=== PATIENT | male | born 1960 | race Caucasian/White ===

== ENCOUNTER 2016-05-08 04:17 | Observation (INO) | payer BC ==
[2016-05-08] MEDS ORDERED: NS 0.9% 1000 ML* 1,000 ML IV ONE (04:38)
[2016-05-08 04:54] LABS: Hematocrit 35 % (42-52); Hemoglobin 12.1 g/dl (14.0-18.0); Mean Corpuscular HGB Conc 34 g/dl (31-36); Mean Corpuscular Hemoglobin 31 pg (27-31); Mean Corpuscular Volume 90 fL (80-94); Mean Platelet Volume 8 um3 (7.4-10.4); Red Blood Count 3.94 10^6/ul (4.0-5.4); Red Cell Distribution Width 14 % (10.5-15)
[2016-05-08] MEDS ORDERED: Morphine INJ* 4 MG/ML 1 ML CARPUJECT IV ONE (04:54)
[2016-05-08 05:07] LABS: Albumin 3.7 g/dL (3.2-5.2); BUN/Creatinine Ratio 17.1 (8-20); Calcium 8.7 mg/dL (8.6-10.3); EGFR Non-African American 97.2 (>60); Globulin 2.7 g/dL (2-4); Potassium 3.7 mmol/L (3.5-5.0); Total Bilirubin 0.3 mg/dL (0.2-1.0); Total Protein 6.4 g/dL (6.4-8.9)
[2016-05-08] MEDS ORDERED: Albuterol 2.5 MG/3 ML NEB.SOL* (0.083%) INH PRN (05:40)
[2016-05-08] MEDS ORDERED: CMC:Melatonin (NF) 3 MG TAB PO PRN (05:46)
[2016-05-08] MEDS ORDERED: Ondansetron INJ* 2 MG/ML VIAL IV PRN (05:49)
[2016-05-08] MEDS ORDERED: Metoprolol Tartrate TAB* 25 MG PO ONE (05:49)
--- NOTE | 2016-05-08 05:56 | ED ---
nicola Garcia Timothy, scribed for Dyllan Hernandez MD on 05/08/16 at 0429 . HPI Chest Pain - HPI Summary HPI Summary: Pal Bejarano is a 55 yo male presenting to [facility] with 6/10 CP and pressure with SOB since 299. He also experienced palpitations. He states his CP is midsternal, and has moved left. He states the pain increases when he breathes out. He states the pain does not radiate. 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 He states he was not shoveling at all today or last night. He denies any Hx of similar Sx. he has been medicated with ASA and NTG with no relief. He denies any leg edema. His MHx includes CA, CAD, HLD, anticoagulant therapy, HTN, stent, chronic CP resolved with rest, tourett's syndrome, COPD, bronchitis (none since 2009), pancreatitis, GERD, ulcerative colitis, hypoglycemia, tobacco use. - History of Current Complaint Time Seen by Provider: 05/08/16 04:26 Hx Obtained From: Patient Onset/Duration: Started Hours Ago, Still Present Time of Onset: 03:00 Timing: Constant Initial Severity: Moderate Current Severity: Moderate Pain Intensity: 6 Pain Scale Used: 0-10 Numeric Chest Pain Location: Mid Sternal Chest Pain Radiates: No Character: Pressure/Squeezing Aggravating Factor(s): Deep Breaths - exhale Alleviating Factor(s): Nothing Associated Signs and Symptoms: Positive: Chest Pain. Negative: Calf Pain/ Swelling - Allergy/Home Medications Allergies/Adverse Reactions: Allergies Allergy/AdvReac Type Severity Reaction Status Date / Time Latex Allergy Mild Rash Verified 12/11/13 09:41 Aspirin AdvReac Mild GI Upset Verified 12/11/13 09:41 Ibuprofen AdvReac Mild GI Upset Verified 12/11/13 09:41 apple juice Allergy Severe Anaphylatic Uncoded 12/11/13 09:41 Shock orange juice Allergy Severe Anaphylatic Uncoded 12/11/13 09:41 Shock FRUITS Allergy See Comment Uncoded 07/04/14 09:06 Narcotic AdvReac Intermediate See Comment Uncoded 05/08/16 05:48 PMH/Surg Hx/FS Hx/Imm Hx Endocrine/Hematology History: Reports: Hx Anticoagulant Therapy - asporin, Other Endocrine/Hematological Disorders - Hypoglycemia Denies: Hx Blood Disorders, Hx Bone Marrow Disease, Hx Diabetes, Hx Systemic Lupus Erythematosus, Hx Sickle Cell Disease, Hx Thyroid Disease, Hx Anemia, Hx Unexplained Bleeding Cardiovascular History: Reports: Hx Angina, Hx Coronary Artery Disease, Hx Hypercholesterolemia, Hx Hypertension, Hx Myocardial Infarction Denies: Hx Aneurysm, Hx Angioplasty, Hx Auto Implanted Cardiovert Defib, Hx Cardiac Arrest, Hx Cardiomegaly, Hx Congenital Heart Disease, Hx Congestive Heart Failure, Hx Deep Vein Thrombosis, Hx Hypotension, Hx Pacemaker/ICD, Hx Peripheral Vascular Disease, Hx Rheumatic Fever, Hx Syncope, Hx Valvular Heart Disease Comment Only: Other Cardiovascular Problems/Disorders - FOLLOWED BY DR MANDEL Respiratory History: Reports: Hx Chronic Bronchitis, Hx Chronic Obstructive Pulmonary Disease (COPD), Other Respiratory Problems/Disorders - current smoker Denies: Hx Asthma, Hx Cystic Fibrosis, Hx Lung Cancer, Hx Pleural Effusion, Hx Pneumonia, Hx Pulmonary Edema, Hx Pulmonary Embolism, Hx Seasonal Allergies, Hx Sleep Apnea GI History: Reports: Hx Gastroesophageal Reflux Disease - ON DAILY OMEPRAZOLE, Hx Gastrointestinal Bleed, Other GI Disorders - Hx OF ULCERATIVE COLITIS Denies: Hx Cirrhosis, Hx Crohn's Disease, Hx Diverticulosis, Hx Gall Bladder Disease, Hx Hiatal Hernia, Hx Irritable Bowel, Hx Jaundice, Hx Obstructive Bowel , Hx Ileostomy, Hx Pyloric Stenosis, Hx Ulcer History: Denies: Hx Renal Disease Musculoskeletal History: Reports: Hx Arthritis - RIGHT HAND, Hx Orthopedic Injury - R hand, L foot, Hx Tendonitis - BOTH ARMS, Other Musculoskeletal History - L foot drop toe surgery; carpal tunnel relase R hand Sensory History: Reports: Hx Contacts or Glasses - GLASSES, Hx Vision Problem Opthamlomology History: Reports: Hx Contacts or Glasses - GLASSES, Hx Vision Problem Neurological History: Reports: Other Neuro Impairments/Disorders - TOURETTE'S SYNDROME, ON DAILY MEDS Denies: Hx Seizures Psychiatric History: Reports: Other Psychiatric Issues/Disorders - Tourette's Denies: Hx Substance Abuse - Surgical History Surgery Procedure, Year, and Place: 1998 LEFT FOOT [facility]. 2012 CARDIAC CATH [facility] Hx Anesthesia Reactions: No - Immunization History Date of Tetanus Vaccine: Unknown Date of Influenza Vaccine: None, doesn't get the flu vaccine Infectious Disease History: Denies: Hx Clostridium Difficile, Hx Hepatitis, Hx Human Immunodeficiency Virus (HIV), Hx Shingles, Hx Tuberculosis - Family History Known Family History: Positive: Cardiac Disease - Social History Alcohol Use: None Alcohol Amount: Hx OF ABUSE; NONE SINCE 1981 Substance Use Type: Reports: None Substance Use Comment - Amount & Last Used: DID ABUSE DRUGS;NONE SINCE 1981 Hx Tobacco Use: Yes Smoking Status (MU): Light Every Day Tobacco Smoker Type: Cigarettes Amount Used/How Often: CURRENT 1/2PPD; PAST 3PPD; HAS SMOKED 38 YRS Length of Time of Smoking/Using Tobacco: 38 YEARS Have You Smoked in the Last Year: Yes Review of Systems Constitutional: Negative Eyes: Negative ENT: Negative Positive: Palpitations, Chest Pain Positive: Shortness Of Breath Gastrointestinal: Negative Genitourinary: Negative Musculoskeletal: Negative Skin: Negative Neurological: Negative Psychological: Normal All Other Systems Reviewed And Are Negative: Yes Physical Exam - Summary Physical Exam Summary: The patient is well-nourished in mild pain distress. The skin is warm and dry and skin color reflects adequate perfusion. HEENT: The head is normocephalic and atraumatic. The pupils are equal and reactive. The conjunctivae are clear and without drainage. Nares are patent and without drainage. Mouth reveals moist mucous membranes and the throat is without erythema and exudate. The external ears are intact. The ear canals are patent and without drainage. The tympanic membranes are intact. Neck is supple with full range of motion and non-tender. There are no carotid bruits. There is no neck vein distension. Respiratory: Chest is non-tender. Lungs are clear to auscultation and breath sounds are symmetrical and equal. Cardiovascular: Hear is regular rate and rhythm. There is no murmur or rub auscultated. There is no peripheral edema and pulses are symmetrical and equal. There is no reproducible CP. Abdomen: The abdomen is soft and non-tender. There are normal bowel sounds heard in all four quadrants and there is no organomegaly palpated. Musculoskeletal: There is no back pain noted. Extremities are non-tender with full range of motion. There is good capillary refill. There is no peripheral edema or calf tenderness elicited. Neurological: Patient is alert and oriented to person, place and time. The patient has symmetrical motor strength in all four extremities. Cranial nerves are grossly intact. Deep tendon reflexes are symmetrical and equal in all four extremities. Psychiatric: The patient has an appropriate affect and does not exhibit any anxiety or depression. Triage Information Reviewed: Yes Vital Signs On Initial Exam: Initial Vital Signs Temp 98.9 F 05/08/16 04:29 Pulse 73 05/08/16 04:29 Resp 19 05/08/16 04:29 BP 119/77 05/08/16 04:29 Pulse Ox 100 05/08/16 04:29 Vital Signs Reviewed: Yes Diagnostics - Vital Signs Vital Signs Temp Pulse Resp BP Pulse Ox 05/08/16 05:30 63 119/80 100 05/08/16 05:21 65 136/78 100 05/08/16 05:14 120/83 05/08/16 05:00 61 20 109/78 100 05/08/16 04:59 19 05/08/16 04:58 65 20 100 05/08/16 04:29 98.9 F 73 19 119/77 100 - Laboratory Lab Results: Lab Results 05/08/16 05/08/16 05/08/16 Range/Units 04:45 04:45 04:45 WBC 7.0 (3.5-10.8) 10^3/ul RBC 3.94 L (4.0-5.4) 10^6/ul Hgb 12.1 L (14.0-18.0) g/dl Hct 35 L (42-52) % MCV 90 (80-94) fL MCH 31 (27-31) pg MCHC 34 (31-36) g/dl RDW 14 (10.5-15) % Plt Count 283 (150-450) 10^3/ul MPV 8 (7.4-10.4) um3 Neut % (Auto) 65.7 (38-83) % Lymph % (Auto) 22.6 L (25-47) % Tucker % (Auto) 7.4 (1-9) % Eos % (Auto) 3.4 (0-6) % Baso % (Auto) 0.9 (0-2) % Absolute Neuts (auto) 4.6 (1.5-7.7) 10^3/ul Absolute Lymphs (auto) 1.6 (1.0-4.8) 10^3/ul Absolute Monos (auto) 0.5 (0-0.8) 10^3/ul Absolute Eos (auto) 0.2 (0-0.6) 10^3/ul Absolute Basos (auto) 0.1 (0-0.2) 10^3/ul Absolute Nucleated RBC 0 10^3/ul Nucleated RBC % 0.1 ESR Pending Sodium 132 L (133-145) mmol/L Potassium 3.7 (3.5-5.0) mmol/L Chloride 104 (101-111) mmol/L Carbon Dioxide 21 L (22-32) mmol/L Anion Gap 7 (2-11) mmol/L BUN 14 (6-24) mg/dL Creatinine 0.82 (0.67-1.17) mg/dL Est GFR ( Amer) 125.0 (>60) Est GFR (Non-Af Amer) 97.2 (>60) BUN/Creatinine Ratio 17.1 (8-20) Glucose 175 H (70-100) mg/dL Lactic Acid 1.0 (0.5-2.0) mmol/L Calcium 8.7 (8.6-10.3) mg/dL Total Bilirubin 0.30 (0.2-1.0) mg/dL AST 16 (13-39) U/L ALT 9 (7-52) U/L Alkaline Phosphatase 71 (34-104) U/L Troponin I 0.00 (<0.04) ng/mL C-Reactive Protein Pending B-Natriuretic Peptide ( - 100) pg/mL Total Protein 6.4 (6.4-8.9) g/dL Albumin 3.7 (3.2-5.2) g/dL Globulin 2.7 (2-4) g/dL Albumin/Globulin Ratio 1.4 (1-3) 05/08/16 Range/Units 04:45 WBC (3.5-10.8) 10^3/ul RBC (4.0-5.4) 10^6/ul Hgb (14.0-18.0) g/dl Hct (42-52) % MCV (80-94) fL MCH (27-31) pg MCHC (31-36) g/dl RDW (10.5-15) % Plt Count (150-450) 10^3/ul MPV (7.4-10.4) um3 Neut % (Auto) (38-83) % Lymph % (Auto) (25-47) % Tucker % (Auto) (1-9) % Eos % (Auto) (0-6) % Baso % (Auto) (0-2) % Absolute Neuts (auto) (1.5-7.7) 10^3/ul Absolute Lymphs (auto) (1.0-4.8) 10^3/ul Absolute Monos (auto) (0-0.8) 10^3/ul Absolute Eos (auto) (0-0.6) 10^3/ul Absolute Basos (auto) (0-0.2) 10^3/ul Absolute Nucleated RBC 10^3/ul Nucleated RBC % ESR Sodium (133-145) mmol/L Potassium (3.5-5.0) mmol/L Chloride (101-111) mmol/L Carbon Dioxide (22-32) mmol/L Anion Gap (2-11) mmol/L BUN (6-24) mg/dL Creatinine (0.67-1.17) mg/dL Est GFR ( Amer) (>60) Est GFR (Non-Af Amer) (>60) BUN/Creatinine Ratio (8-20) Glucose (70-100) mg/dL Lactic Acid (0.5-2.0) mmol/L Calcium (8.6-10.3) mg/dL Total Bilirubin (0.2-1.0) mg/dL AST (13-39) U/L ALT (7-52) U/L Alkaline Phosphatase (34-104) U/L Troponin I (<0.04) ng/mL C-Reactive Protein B-Natriuretic Peptide 32 ( - 100) pg/mL Total Protein (6.4-8.9) g/dL Albumin (3.2-5.2) g/dL Globulin (2-4) g/dL Albumin/Globulin Ratio (1-3) Result Diagrams: 05/08/16 04:45 05/08/16 04:45 Lab Statement: Any lab studies that have been ordered have been reviewed, and results considered in the medical decision making process. - Radiology CXR Xray Interpretation: No Acute Changes - No active disease Radiology Interpretation Completed By: ED Physician - EKG 0429 Cardiac Rate: NL - 66 BPM EKG Interpretation: NSR @ [address] changes in I, AVL, AVF, II, III , V5, V6 EKG Comparison: No Significant Change - from 06/03/15 Re-Evaluation - Re-Evaluation First Eval Re-Evaluation Time: 04:51 Change: Unchanged Comment: Pt is still in 6/10 CP Second Eval Re-Evaluation Time: 05:31 Change: Unchanged Comment: Pt states his CP has improved. Reviewed labs with Pt, Pt is agreeable to current course of Tx. Chest Pain Course/Dx - Course Assessment/Plan: Pal Bejarano is a 55 yomale presenting to [facility] with CP and SOB since 0300 today. After clinical examination and review of his EKG, imaging studies, and lab work, as well as discussion with Dr. Prabhakar, he will be admitted to [facility] for further evaluation and treatment. - Chest Pain Differential Diagnosis/HQI/PQRI: Acute CA, ACS, GI Disease - Diagnoses Provider Diagnoses: Chest pain - Provider Notifications Discussed Care Of Patient With: 0535 - Dr. Prabhakar (hospitalist) - discussed Pt condition, agrees to admit Pt. Instructed by Provider To: Admit As Inpatient Discharge - Discharge Plan Condition: Stable Disposition: ADMITTED TO [facility] Referrals: Janet Sy, LOAD CHECKER [Primary Care Provider] - The documentation as recorded by the nicola dobson Timothy accurately reflects the service I personally performed and the decisions made by me, Dyllan Hernandez MD.
[2016-05-08 06:00] LABS: C Reactive Protein 6.38 mg/L (< 5.00)
[2016-05-08] MEDS ORDERED: Pantoprazole IV* 40 MG IV SCH (06:00)
[2016-05-08 06:36] LABS: Erythrocyte Sed Rate 31 mm/Hr (0-20)
--- NOTE | 2016-05-08 07:58 | RAD ---
HISTORY: Chest pain, cough, CHF, pneumonia COMPARISONS: January 13, 2016 VIEWS:1: Single frontal portable view of the chest at 4:46 AM FINDINGS: LINES AND TUBES: None. CARDIOMEDIASTINAL SILHOUETTE: The cardiomediastinal silhouette is normal for portable technique. PLEURA: The costophrenic angles are sharp. No pleural abnormalities are noted. LUNG PARENCHYMA: There is patchy linear opacification of the right lower lobe ABDOMEN: The upper abdomen is clear. There is no subphrenic gas. BONES AND SOFT TISSUES: No bone or soft tissue abnormalities are noted. IMPRESSION: PATCHY RIGHT LOWER LOBE ATELECTASIS VERSUS CONSOLIDATION
[2016-05-08] MEDS ORDERED: Acetaminop/Codeine 30 MG TAB* 1 TAB (300 MG/30 MG) PO PRN (08:14)
[2016-05-08] MEDS ORDERED: Baclofen TAB* 10 MG PO SCH (09:00)
[2016-05-08] MEDS ORDERED: Omeprazole CAP* 20 MG PO SCH (09:00)
[2016-05-08] MEDS ORDERED: Metoprolol Tartrate TAB* 25 MG PO SCH (09:00)
[2016-05-08] MEDS ORDERED: PARoxetine HCL TAB* 20 MG PO SCH (09:00)
[2016-05-08] MEDS ORDERED: Docusate CAP* 100 MG PO SCH (09:00)
[2016-05-08] MEDS ORDERED: Aspirin Low Dose CHEW TAB* 81 MG PO SCH (09:00)
[2016-05-08] MEDS ORDERED: Atorvastatin* 40 MG TAB PO SCH (09:00)
[2016-05-08] MEDS ORDERED: Nicotine Inhaler* 10 MG AMP INH PRN (09:24)
[2016-05-08] MEDS ORDERED: cloNIDine TAB* 0.1 MG PO ONE (09:25)
[2016-05-08] MEDS ORDERED: Mouth Piece, Nicotine* 1 EACH CARTRIDGE INH ONE (10:00)
--- NOTE | 2016-05-08 12:54 | HP ---
HISTORY AND PHYSICAL: DATE OF ADMISSION: 05/08/16 PRIMARY CARE PROVIDER: Janet Santos NP CHIEF COMPLAINT: Chest pain. HISTORY OF PRESENT ILLNESS: The patient is a 55-year-old male with history of nonobstructive coronary artery disease, smoking and Tourette syndrome who presents complaining of chest pain. 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 He bent down and he experienced thoracic chest pain that was localized in the center radiating to the right. It got better when he "straightened out." It was not associated with shortness of breath, nausea, or dyspnea. It lasted approximately half an hour. Currently, the patient is being evaluated in the patient's room and he does not have chest pain anymore. The patient states that he smokes approximately a pack to half a pack of cigarettes a day. He stated that he has chronic "stomach problems" and he drinks a lot of coffee during the daytime. He describes that he has epigastric pain sometimes after meals. The patient's initial troponin was negative and EKG showed most likely J-point elevation. The patient is going to be placed on observation for a stress test. PAST MEDICAL HISTORY: 1. History of nonobstructive coronary artery disease with cardiac catheterization in 2012 showing LAD stenosis of 60% to 65% and RCA stenosis of 55%. 2. Tourette syndrome. 3. History of hyperlipidemia. 4. History of episodes of hypoglycemia in the past. 5. History of smoking. CURRENT MEDICATIONS: Include: 1. Baclofen 10 mg twice a day. 2. Clonidine 0.1 mg in the morning and 0.2 mg q.h.s. 3. Omeprazole 40 mg daily. 4. Paroxetine 20 mg daily. 5. Aspirin 81 mg daily. 6. Atorvastatin 40 mg daily. 7. Metoprolol tartrate 12.5 mg b.i.d. 8. Acetaminophen with Codeine 1 tablet every 6 hours p.r.n. ALLERGIES: Include LATEX, PHENOBARBITAL, ASPIRIN, although the patient takes baby aspirin, IBUPROFEN, APPLE JUICE, ORANGE JUICE and NARCOTICS. Please note that the NARCOTICS allergies "the patient prefers not to take." ASPIRIN and IBUPROFEN caused GI upset. ORANGE JUICE and APPLE JUICE caused anaphylactic shock. FAMILY HISTORY: Positive for father with "5 heart attacks." Mother with history of breast cancer. SOCIAL HISTORY: The patient has history of smoking at least 40 to 60 pack years. Currently smoking half a pack to 1 pack a day. Denies any alcohol use. He said that he used to be an opioid drug user, but he quit in 1981. 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 He is and his Karrie is his healthcare proxy. REVIEW OF SYSTEMS: Please see history of present illness. In addition to above mentioned, the patient stated that he has osteoarthritis on his knees and his knees "would buckle up" if he tried to walk on a treadmill. Once again, the patient complains of chronic "stomach problems" intermittent epigastric pain especially when he drinks caffeine. All the remaining 14 systems were reviewed with the patient and were otherwise negative. PHYSICAL EXAMINATION GENERAL: The patient is a very pleasant 55-year-old male, who is in no acute distress. Alert, awake, and oriented x3. VITAL SIGNS: Blood pressure of 119/78, heart rate of 71 and regular, respiratory rate 16, oxygen saturation 98% on room air, temperature of 98.9. HEENT: Head: Atraumatic, normocephalic. Eyes: Pupils equal and reactive to light and accommodation. Oropharynx clear. Mucosa moist. NECK: Supple. No JVD. No bruits bilaterally. RESPIRATORY: Clear to auscultation bilaterally. CARDIOVASCULAR: Regular rate and rhythm. No murmurs. ABDOMEN: Soft, minimally tender in the epigastric area with no rebound, no guarding. Bowel sounds present in all 4 quadrants. EXTREMITIES: There is no edema. +2 pulses bilaterally. No clubbing or cyanosis. SKIN: Upon evaluation of the skin, no ecchymotic areas or rashes noted. NEUROLOGIC: Speech clear. Cranial nerves II through XII are grossly intact. Motor strength is 5/5 bilaterally. LABORATORY DATA: Sodium of 132, potassium 3.7, chloride 104, carbon dioxide 21 , BUN 14, creatinine 0.82. Liver functions were unremarkable. Troponin of 0.0. Brain natriuretic peptide was 32. Random glucose level of 175. White blood cell count 7.0, hemoglobin 12.1, hematocrit 35, and platelets 183. Portable chest x-ray showed "patchy right lower lobe atelectasis versus consolidation." EKG showed normal sinus rhythm with heart rate of 52 beats per minute with downsloping ST elevation of V2 through V6, most likely due to J-point elevation. This is consistent with prior EKG from 2014. ASSESSMENT AND PLAN: In regards to patient's chest pain, it appears to be musculoskeletal and started when the patient bent down. Nevertheless, the patient has significant risk factors and he is going to be placed on observation with pharmacologic stress test. In regards to the patient's hyperlipidemia, the patient's statin is going to be continued. For hypertension, his beta-carley is going to be continued. In regards to patient's epigastric mild tenderness and his "stomach concerns" it should be evaluated further as outpatient. The patient is going to be continued on Prilosec. He also was advised to stop caffeinated beverages and smoking that can cause gastritis and gastric ulcers. The patient stated that he will quit smoking "when he is 6 feet under." In regards to patient's smoking cessation, the patient was consulted for approximately 5 minutes. Once again, he is adamant that he is not going to quit smoking. He is aware of the risks of smoking and that it can worsen his coronary artery disease and cause emphysema and cancer. In regards to right lower lobe infiltrate versus atelectasis, the patient has no symptomatology that would suggest an infection. It is most likely an atelectasis. Nevertheless, with the patient's long-term history of smoking and unwillingness to quit, he may be a good candidate for lung cancer screening with chest CT. I will leave it up to his primary care provider to discuss with the patient and perform as outpatient later on. For DVT prophylaxis, the patient is low risk and ambulation is going to be encouraged. Code status is full. TIME SPENT: Approximately 55 minutes was spent on admission of this patient, more than half the time was spent [id number] with the patient doing the interview and physical exam. CC: Janet Santos NP * [id number]/[facility] #: [id number] SOFY
[2016-05-08] MEDS ORDERED: Aminophylline IV* 25 MG/ML 10 ML VIAL ONE (13:31)
[2016-05-08] MEDS ORDERED: Regadenoson* 0.4 MG/5 ML SYRINGE ONE (13:31)
--- NOTE | 2016-05-08 14:53 | RAD ---
Edited for charges. Indication: Chest pain. Myocardial perfusion scan was performed utilizing 1 day protocol. 10.4 mCi of technetium 99m tetrofosmin was injected for the rest portion of the study. Pharmacological stress was applied and 25.78 mCi of technetium 99 and tetrofosmin was injected for the stress portion of the study. There is homogeneous distribution of the radiotracer throughout the left ventricle. There is no evidence of any fixed or reversible perfusion defect identified. The left ventricle is normal in size. The ejection fraction is 61%. Evaluation of wall motion demonstrates no focal wall motion abnormality. IMPRESSION: No evidence of fixed or reversible perfusion defect is identified. ASSESSMENT: Low risk Based on imaging criteria from ACC/AHA 2002 Guideline Update for the Management of Patients With Chronic Stable Angina Table 23. Noninvasive Risk Stratification. MTDD
[2016-05-08 15:31] VITALS: BP 128/80
[2016-05-08] MEDS ORDERED: cloNIDine TAB* 0.1 MG PO SCH (21:00)
--- NOTE | 2016-05-09 07:08 | DS ---
DISCHARGE SUMMARY: DATE OF ADMISSION: 05/08/16 DATE OF DISCHARGE: 05/08/16 DISCHARGE DIAGNOSES: Chest pain, most likely musculoskeletal, with low probability of cardiac stress as documented on 05/08/16. SECONDARY DIAGNOSES: 1. History of nonobstructive coronary artery disease. 2. Tourette's syndrome. 3. History of dyslipidemia. 4. History of episodes of hypoglycemia in the past. 5. Current smoker. DISCHARGE MEDICATIONS: Medications at discharge are unchanged from admission and include: 1. Baclofen 10 mg twice a day. 2. Clonidine 0.1 mg in the morning and 0.2 mg q.h.s. 3. Omeprazole 40 mg daily. 4. Paroxetine 20 mg daily. 5. Aspirin 81 mg daily. 6. Atorvastatin 40 mg daily. 7. Metoprolol tartrate 12.5 mg b.i.d. 8. Acetaminophen with codeine on a p.r.n. basis. HOSPITALIZATION COURSE: Mr. Ventura Bejarano is a 55-year-old male with history of nonobstructive coronary artery disease, who presented complaining of chest pain that developed when he bent down. His initial troponins were negative and his EKG unremarkable. He underwent a cardiac stress test, which was a pharmacologic cardiac stress test on 05/08/16, which was read as low risk. His ejection fraction was noted to be 61% and there was no evidence of any fixed or reversible perfusion defects identified. The patient is going to be discharged home with recommendation to follow up with his primary care physician in approximately 7 days. PHYSICAL EXAM AT TIME OF DISCHARGE: Unchanged from admission. CC: Janet Santos NP* [id number]/[facility] #: [id number] [facility]ITALGabbie
[2016-05-09] MEDS ORDERED: Aspirin TAB* 325 MG PO SCH (09:00)
== END 2016-05-08 17:00 | disposition home or self-care (01) ==
LOC: ED 04:17 → MEDTELE 05:36
PROVIDERS: ADMIT Hospitalist; ATTEND Internal Medicine
DX: R07.9 Chest pain, unspecified (principal); I25.10 Atherosclerotic heart disease of native coronary artery without angina pectoris; F95.2 Tourette's disorder; E78.5 Hyperlipidemia, unspecified; F17.210 Nicotine dependence, cigarettes, uncomplicated; Z79.899 Other long term (current) drug therapy; Z79.82 Long term (current) use of aspirin; Z88.6 Allergy status to analgesic agent; Z88.5 Allergy status to narcotic agent
CPT/HCPCS: 36415; 71010; 78452; 80053; 83036; 83605; 83880; 84484; 85025; 85652; 86140; 93005; 93017; 96374; 99283; A9270-GY; A9502; G0378; J0280; J2270; J2785

== ENCOUNTER 2016-12-17 04:13 | Observation (INO) | payer BC ==
[2016-12-17] MEDS ORDERED: Nitroglycerin 2% OINT* 1 GM PAK TOPICAL ONE (04:23)
[2016-12-17 04:48] LABS: Hematocrit 39 % (42-52); Hemoglobin 13.2 g/dl (14.0-18.0); Mean Corpuscular HGB Conc 34 g/dl (31-36); Mean Corpuscular Hemoglobin 31 pg (27-31); Mean Corpuscular Volume 89 fL (80-94); Mean Platelet Volume 8 um3 (7.4-10.4); Red Blood Count 4.33 10^6/ul (4.0-5.4); Red Cell Distribution Width 14 % (10.5-15); White Blood Count 8.6 10^3/ul (3.5-10.8)
[2016-12-17 05:00] LABS: Albumin 3.9 g/dL (3.2-5.2); BUN/Creatinine Ratio 20.2 (8-20); Calcium 9.1 mg/dL (8.6-10.3); EGFR African American 100.2 (>60); EGFR Non-African American 77.9 (>60); Globulin 3.3 g/dL (2-4); Magnesium 2.2 mg/dL (1.9-2.7); Potassium 4.5 mmol/L (3.5-5.0); Total Bilirubin 0.3 mg/dL (0.2-1.0); Total Protein 7.2 g/dL (6.4-8.9)
--- NOTE | 2016-12-17 06:14 | ED ---
Diamond Garcia Thomas, scribed for Anil Brower on 12/17/16 at 0426 . HPI Chest Pain - HPI Summary HPI Summary: The pt is a 56 y/o M presenting to the ED c/o CP that began about an hour ago when he was moving furniture. The pain is constant. The pain is rated 3/10. The pain is aggravated by nothing and is alleviated by nothing. 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 Pt additionally c/o SOB. Pt denies N/V and dizziness. He is a current smoker. He last had a stress test about a year ago. He last had a cardiac catheterization years ago. - History of Current Complaint Chief Complaint: EDChestPainROMI Time Seen by Provider: 12/17/16 04:14 Hx Obtained From: Patient Onset/Duration: Started Minutes Ago - onset about an hour ago, Still Present Timing: Constant Current Severity: Mild Pain Intensity: 3 Pain Scale Used: 0-10 Numeric Chest Pain Radiates: No Aggravating Factor(s): Nothing Alleviating Factor(s): Nothing Associated Signs and Symptoms: Positive: Chest Pain, Shortness of Breath. Negative: Dizziness, Nausea, Vomiting - Additional Pertinent History Primary Care Physician: [id number] - Allergy/Home Medications Allergies/Adverse Reactions: Allergies Allergy/AdvReac Type Severity Reaction Status Date / Time Latex Allergy Mild Rash Verified 05/08/16 06:21 Aspirin AdvReac Mild GI Upset Verified 05/08/16 06:21 Ibuprofen AdvReac Mild GI Upset Verified 05/08/16 06:21 apple juice Allergy Severe Anaphylatic Uncoded 05/08/16 06:21 Shock orange juice Allergy Severe Anaphylatic Uncoded 05/08/16 06:21 Shock FRUITS Allergy See Comment Uncoded 05/08/16 06:21 Narcotic AdvReac Intermediate See Comment Uncoded 05/08/16 06:21 PMH/Surg Hx/FS Hx/Imm Hx Previously Healthy: No Endocrine/Hematology History: Reports: Hx Anticoagulant Therapy - asporin, Other Endocrine/Hematological Disorders - Hypoglycemia Denies: Hx Blood Disorders, Hx Bone Marrow Disease, Hx Diabetes, Hx Systemic Lupus Erythematosus, Hx Sickle Cell Disease, Hx Thyroid Disease, Hx Anemia, Hx Unexplained Bleeding Cardiovascular History: Reports: Hx Angina, Hx Coronary Artery Disease, Hx Hypercholesterolemia, Hx Hypertension, Hx Myocardial Infarction Denies: Hx Aneurysm, Hx Angioplasty, Hx Auto Implanted Cardiovert Defib, Hx Cardiac Arrest, Hx Cardiomegaly, Hx Congenital Heart Disease, Hx Congestive Heart Failure, Hx Deep Vein Thrombosis, Hx Hypotension, Hx Pacemaker/ICD, Hx Peripheral Vascular Disease, Hx Rheumatic Fever, Hx Syncope, Hx Valvular Heart Disease Comment Only: Other Cardiovascular Problems/Disorders - FOLLOWED BY DR MANDEL Respiratory History: Reports: Hx Chronic Bronchitis, Hx Chronic Obstructive Pulmonary Disease (COPD), Other Respiratory Problems/Disorders - current smoker Denies: Hx Asthma, Hx Cystic Fibrosis, Hx Lung Cancer, Hx Pleural Effusion, Hx Pneumonia, Hx Pulmonary Edema, Hx Pulmonary Embolism, Hx Seasonal Allergies, Hx Sleep Apnea GI History: Reports: Hx Gastroesophageal Reflux Disease - ON DAILY OMEPRAZOLE, Hx Gastrointestinal Bleed, Other GI Disorders - Hx OF ULCERATIVE COLITIS Denies: Hx Cirrhosis, Hx Crohn's Disease, Hx Diverticulosis, Hx Gall Bladder Disease, Hx Hiatal Hernia, Hx Irritable Bowel, Hx Jaundice, Hx Obstructive Bowel , Hx Ileostomy, Hx Pyloric Stenosis, Hx Ulcer History: Denies: Hx Renal Disease Musculoskeletal History: Reports: Hx Arthritis - RIGHT HAND, Hx Orthopedic Injury - R hand, L foot, Hx Tendonitis - BOTH ARMS, Other Musculoskeletal History - L foot drop toe surgery; carpal tunnel relase R hand Sensory History: Reports: Hx Contacts or Glasses - GLASSES, Hx Vision Problem Opthamlomology History: Reports: Hx Contacts or Glasses - GLASSES, Hx Vision Problem Neurological History: Reports: Other Neuro Impairments/Disorders - TOURETTE'S SYNDROME, ON DAILY MEDS Denies: Hx Seizures Psychiatric History: Reports: Other Psychiatric Issues/Disorders - Tourette's Denies: Hx Substance Abuse - Surgical History Surgery Procedure, Year, and Place: 1998 LEFT FOOT [facility]. 2012 CARDIAC CATH [facility] Hx Anesthesia Reactions: No - Immunization History Date of Tetanus Vaccine: Unknown Date of Influenza Vaccine: None, doesn't get the flu vaccine Infectious Disease History: No Infectious Disease History: Denies: Hx Clostridium Difficile, Hx Hepatitis, Hx Human Immunodeficiency Virus (HIV), Hx Shingles, Hx Tuberculosis, Traveled Outside the [place] in Last 30 Days - Family History Known Family History: Positive: Cardiac Disease - Social History Alcohol Use: None Alcohol Amount: Hx OF ABUSE; NONE SINCE 1981 Substance Use Type: Reports: None Substance Use Comment - Amount & Last Used: DID ABUSE DRUGS;NONE SINCE 1981 Hx Tobacco Use: Yes Smoking Status (MU): Light Every Day Tobacco Smoker Type: Cigarettes Amount Used/How Often: CURRENT 1/2PPD; PAST 3PPD; HAS SMOKED 38 YRS Length of Time of Smoking/Using Tobacco: 38 YEARS Have You Smoked in the Last Year: Yes Review of Systems Positive: Chest Pain Positive: Shortness Of Breath Negative: Vomiting, Nausea Neurological: Other - NEGATIVE: dizziness All Other Systems Reviewed And Are Negative: Yes Physical Exam - Summary Physical Exam Summary: Appearance: Well appearing, no pain distress Skin: warm, dry, reflects adequate perfusion Head/face: normal Eyes: EOMI, COLLEEN ENT: normal Neck: supple, nontender Respiratory: CTA, breath sounds present Cardiovascular: RRR, pulses symmetrical Abdomen: nontender, soft Bowel: present Musculoskeletal: normal, strength/ROM intact Neuro: normal, sensory motor intact, A&Ox3 Triage Information Reviewed: Yes Vital Signs On Initial Exam: Initial Vitals Temp Pulse Resp BP Pulse Ox 98.6 F 72 16 133/93 100 12/17/16 04:17 12/17/16 04:17 12/17/16 04:17 12/17/16 04:17 12/17/16 04:17 Vital Signs Reviewed: Yes Diagnostics - Vital Signs Vital Signs Temp Pulse Resp BP Pulse Ox 12/17/16 04:17 98.6 F 72 16 133/93 100 - Laboratory Lab Results: Lab Results 12/17/16 12/17/16 12/17/16 Range/Units 04:30 04:30 04:30 WBC 8.6 (3.5-10.8) 10^3/ul RBC 4.33 (4.0-5.4) 10^6/ul Hgb 13.2 L (14.0-18.0) g/dl Hct 39 L (42-52) % MCV 89 (80-94) fL MCH 31 (27-31) pg MCHC 34 (31-36) g/dl RDW 14 (10.5-15) % Plt Count 321 (150-450) 10^3/ul MPV 8 (7.4-10.4) um3 Neut % (Auto) 65.3 (38-83) % Lymph % (Auto) 22.7 L (25-47) % [place] % (Auto) 6.9 (1-9) % Eos % (Auto) 4.0 (0-6) % Baso % (Auto) 1.1 (0-2) % Absolute Neuts (auto) 5.6 (1.5-7.7) 10^3/ul Absolute Lymphs (auto) 2.0 (1.0-4.8) 10^3/ul Absolute Monos (auto) 0.6 (0-0.8) 10^3/ul Absolute Eos (auto) 0.3 (0-0.6) 10^3/ul Absolute Basos (auto) 0.1 (0-0.2) 10^3/ul Absolute Nucleated RBC 0.01 10^3/ul Nucleated RBC % 0.1 INR (Anticoag Therapy) (0.89-1.11) APTT (26.0-36.3) seconds Sodium 134 (133-145) mmol/L Potassium 4.5 (3.5-5.0) mmol/L Chloride 102 (101-111) mmol/L Carbon Dioxide 27 (22-32) mmol/L Anion Gap 5 (2-11) mmol/L BUN 20 (6-24) mg/dL Creatinine 0.99 (0.67-1.17) mg/dL Est GFR ( Amer) 100.2 (>60) Est GFR (Non-Af Amer) 77.9 (>60) BUN/Creatinine Ratio 20.2 H (8-20) Glucose 99 (70-100) mg/dL Calcium 9.1 (8.6-10.3) mg/dL Magnesium 2.2 (1.9-2.7) mg/dL Total Bilirubin 0.30 (0.2-1.0) mg/dL AST 17 (13-39) U/L ALT 12 (7-52) U/L Alkaline Phosphatase 76 (34-104) U/L Troponin I 0.00 (<0.04) ng/mL B-Natriuretic Peptide 25 ( - 100) pg/mL Total Protein 7.2 (6.4-8.9) g/dL Albumin 3.9 (3.2-5.2) g/dL Globulin 3.3 (2-4) g/dL Albumin/Globulin Ratio 1.2 (1-3) 12/17/16 Range/Units 04:30 WBC (3.5-10.8) 10^3/ul RBC (4.0-5.4) 10^6/ul Hgb (14.0-18.0) g/dl Hct (42-52) % MCV (80-94) fL MCH (27-31) pg MCHC (31-36) g/dl RDW (10.5-15) % Plt Count (150-450) 10^3/ul MPV (7.4-10.4) um3 Neut % (Auto) (38-83) % Lymph % (Auto) (25-47) % [place] % (Auto) (1-9) % Eos % (Auto) (0-6) % Baso % (Auto) (0-2) % Absolute Neuts (auto) (1.5-7.7) 10^3/ul Absolute Lymphs (auto) (1.0-4.8) 10^3/ul Absolute Monos (auto) (0-0.8) 10^3/ul Absolute Eos (auto) (0-0.6) 10^3/ul Absolute Basos (auto) (0-0.2) 10^3/ul Absolute Nucleated RBC 10^3/ul Nucleated RBC % INR (Anticoag Therapy) 0.96 (0.89-1.11) APTT 30.1 (26.0-36.3) seconds Sodium (133-145) mmol/L Potassium (3.5-5.0) mmol/L Chloride (101-111) mmol/L Carbon Dioxide (22-32) mmol/L Anion Gap (2-11) mmol/L BUN (6-24) mg/dL Creatinine (0.67-1.17) mg/dL Est GFR ( Amer) (>60) Est GFR (Non-Af Amer) (>60) BUN/Creatinine Ratio (8-20) Glucose (70-100) mg/dL Calcium (8.6-10.3) mg/dL Magnesium (1.9-2.7) mg/dL Total Bilirubin (0.2-1.0) mg/dL AST (13-39) U/L ALT (7-52) U/L Alkaline Phosphatase (34-104) U/L Troponin I (<0.04) ng/mL B-Natriuretic Peptide ( - 100) pg/mL Total Protein (6.4-8.9) g/dL Albumin (3.2-5.2) g/dL Globulin (2-4) g/dL Albumin/Globulin Ratio (1-3) Result Diagrams: 12/17/16 04:30 12/17/16 04:30 Lab Statement: Any lab studies that have been ordered have been reviewed, and results considered in the medical decision making process. - Radiology CXR Xray Interpretation: No Acute Changes - Negative for acute disease. Radiology Interpretation Completed By: ED Physician - EKG 04:10 Cardiac Rate: NL - 68 BPM EKG Rhythm: Sinus Rhythm EKG Interpretation: Nonspecific ST T changes. Chest Pain Course/Dx - Course Assessment/Plan: The pt is a 56 y/o M c/o CP that began about an hour ago when he was moving furniture. Bloodwork, EKG, and CXR were obtained. The patient will be admitted to [facility] by Dr. Prabhakar, hospitalist, for further workup and management. - Chest Pain Differential Diagnosis/HQI/PQRI: Acute GA, ACS, Angina, CHF, Chest Wall, Lower Respiratory Infection, Pulmonary Edema - Diagnoses Provider Diagnoses: Chest pain, rule out acute myocardial infarction - Provider Notifications Discussed Care Of Patient With: Luís Villegas Time Discussed With Above Provider: 04:30 Instructed by Provider To: Other - I consulted with Dr. Villegas, cardiology, regarding patient care. He says the EKG does not show a STEMI. I also consulted with Dr. Prabhakar, hospitalist, who will admit the patient to [facility]. Discharge - Discharge Plan Condition: Fair Disposition: ADMITTED TO [facility] Referrals: Janet Sy, CASH SURRENDER CALCULATOR [Primary Care Provider] - The documentation as recorded by the Diamond dobson Thomas accurately reflects the service I personally performed and the decisions made by , Anil Brower.
--- NOTE | 2016-12-17 08:17 | RAD ---
INDICATION: Chest pain COMPARISON: Most recent comparison chest x-rays dated May 08, 2016 TECHNIQUE: Single AP portable view of the chest was obtained. FINDINGS: Image quality is compromised due to the relative inferiority of a portable chest x-ray. The heart and mediastinum exhibit normal size and contour. The lungs are grossly clear. There is no evidence of a large pleural effusion. Visualized bones are normal for the patient's age. IMPRESSION: No radiographic evidence for acute cardiopulmonary abnormality on this portable chest x-ray.
[2016-12-17] MEDS ORDERED: Nitroglycerin TAB 0.4 MG* 0.4 MG TAB SL PRN (08:22)
[2016-12-17] MEDS ORDERED: Meclizine TAB* 12.5 MG PO PRN (08:22)
[2016-12-17 09:34] LABS: HDL Cholesterol 35.4 mg/dL; Troponin I 0.01 ng/mL (<0.04)
[2016-12-17] MEDS ORDERED: Mouth Piece, Nicotine* 1 EACH CARTRIDGE ONE (10:19)
[2016-12-17] MEDS ORDERED: Nicotine Inhaler* 10 MG AMP ONE (10:19)
[2016-12-17] MEDS: Nicotine Inhaler* 10 MG AMP INH PRN ×2 (10:22→21:10)
[2016-12-17] MEDS: Aspirin Low Dose CHEW TAB* 81 MG PO SCH (12:47)
[2016-12-17] MEDS: Atorvastatin* 40 MG TAB PO SCH (12:48)
[2016-12-17] MEDS: PARoxetine HCL TAB* 20 MG PO SCH (12:48)
[2016-12-17] MEDS: Baclofen TAB* 10 MG PO SCH ×2 (12:48→21:06)
[2016-12-17] MEDS: cloNIDine TAB* 0.1 MG PO SCH (12:49)
[2016-12-17] MEDS: Metoprolol Tartrate TAB* 25 MG PO SCH ×2 (12:49→21:05)
[2016-12-17] MEDS: Omeprazole CAP* 20 MG PO SCH (12:49)
[2016-12-17] MEDS ORDERED: Acetaminophen TAB* 325 MG PO PRN (13:38)
[2016-12-17] MEDS: CMCS - Minocycline (NF) 50 MG CAP PO SCH ×2 (14:41→21:06)
[2016-12-17] MEDS: Heparin VIAL(*) 5000 UNITS/ML VIAL (FIVE THOUSAND) SUBCUT SCH ×2 (14:43→21:11)
--- NOTE | 2016-12-17 22:41 | HP ---
CC: Janet Santos NP* HISTORY AND PHYSICAL: DATE OF ADMISSION: 12/17/2016. CHIEF COMPLAINT: Chest pain. HISTORY OF PRESENT ILLNESS: The patient is a 56-year-old gentleman who presents to [facility] with a chief complaint of chest pain that started after he was moving chairs today at work. He has had left-sided chest pain that radiated to his left arm. It was a pressure-like pain and 8/10 in severity. He had no nausea and vomiting, but only some slight shortness of breath. No palpitations and no sweating. He became concerned, so he called the ambulance. He took a sublingual nitroglycerin and 4 aspirin and the pain eventually went away. PAST MEDICAL HISTORY: He has a past medical history significant for nonobstructive coronary artery disease with a cardiac cath in 2012 showing LAD stenosis of 60% to 65% and RCA stenosis of 55%, Tourette's syndrome, history of hyperlipidemia, hyperglycemia and tobacco abuse disorder. CURRENT MEDICATIONS: 1. Minocycline 50 mg twice daily. 2. Meclizine 50 mg 3 times a day as needed. 3. Atorvastatin 40 mg daily. 4. Aspirin 81 mg daily. 5. Clonidine 0.2 mg daily. 6. Paroxetine 20 mg daily. 7. Omeprazole 40 mg daily. 8. Nitroglycerin 0.4 mg sublingual q.5 minutes as needed. 9. Metoprolol tartrate 12.5 mg twice daily. 10. Baclofen 10 mg twice daily. ALLERGIES: He has an allergy/adverse reaction to LATEX, PHENOBARBITAL, ASPIRIN even though he takes a baby aspirin, IBUPROFEN, APPLE JUICE, ORANGE JUICE and NARCOTICS. FAMILY HISTORY: Positive for father with 5 heart attacks, mother with a history of breast cancer. SOCIAL HISTORY: The patient has a history of at least 40 to 60-pack years, still smokes about 5 cigarettes a day. Denies any alcohol use. 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 He is and his , , is his healthcare proxy. REVIEW OF SYSTEM: A 14-point review of system was completed with the patient. All pertinent positives and negatives are in the history of present illness, otherwise it is negative. PHYSICAL EXAMINATION GENERAL: A pleasant gentleman, lying in bed, in no acute distress. VITAL SIGNS: Temperature 97.6 degrees, heart rate 64 beats per minute, respiratory rate 18 breaths per minute, pulse ox 98%, blood pressure 96/63. HEENT: Normocephalic, atraumatic. Pupils equal, round and reactive to light. Moist mucous membranes. NECK: Supple. No JVD, bruits, palpable thyroid or lymphadenopathy. CHEST: Clear to auscultation and percussion bilaterally. CARDIOVASCULAR: S1, S2 appreciated. ABDOMEN: Positive bowel sounds in all 4 quadrants. Soft, nontender, nondistended. No hepatosplenomegaly. EXTREMITIES: No cyanosis, clubbing or edema. +2 peripheral pulses bilaterally. NEUROLOGIC: Alert and oriented x3. He moves all extremities. SKIN: No rashes or other abnormalities. DIAGNOSTIC STUDIES/LAB DATA: White blood cell count 8.6, hemoglobin 13.2, hematocrit 39. His platelets are 321. His sodium is 134, potassium 4.5, chloride 102, CO2 27, BUN 20, creatinine 0.99, glucose is 99. INR is 0.96. His troponin has been 0. Chest x-ray, no radiographic evidence for acute cardiopulmonary abnormality on this portable chest x-ray. EKG shows normal sinus rhythm at 68 beats per minute, normal axis. Diffuse ST elevations throughout. We will repeat EKG. ASSESSMENT AND PLAN: 1. Chest pain. The patient has a history of nonobstructive coronary artery disease. He had a negative stress back in April. We will repeat troponins and get stress test in the a.m. if they are negative. Check lipid profile. Encouraged the patient to discontinue tobacco. 2. Hypertension, adequate control. Continue current regimen. 3. Gastroesophageal reflux disease, stable. Continue PPI. 4. Hyperlipidemia, again check lipid profile. Continue statin. 5. Depression. Continue paroxetine, stable. 6. DVT prophylaxis, heparin subcu. 7. FEN. Heart healthy diet, n.p.o. after midnight. 8. The patient is a full code. TIME SPENT: Over 75 minutes were spent on this H and P, more than 40 minutes of which was spent direct [id number] contact with the patient in evaluation, physical exam, counseling and coordination of care. [id number]/[facility] #: [id number] SOFY
[2016-12-18] MEDS: Heparin VIAL(*) 5000 UNITS/ML VIAL (FIVE THOUSAND) SUBCUT SCH (05:41)
[2016-12-18] MEDS ORDERED: Regadenoson* 0.4 MG/5 ML SYRINGE ONE (07:58)
[2016-12-18] MEDS ORDERED: Aminophylline IV* 25 MG/ML 10 ML VIAL ONE (07:58)
[2016-12-18 09:26] VITALS: BP 165/75
[2016-12-18] MEDS: Omeprazole CAP* 20 MG PO SCH (09:26)
[2016-12-18] MEDS: Atorvastatin* 40 MG TAB PO SCH (09:26)
[2016-12-18] MEDS: Baclofen TAB* 10 MG PO SCH (09:26)
[2016-12-18] MEDS: Aspirin Low Dose CHEW TAB* 81 MG PO SCH (09:27)
[2016-12-18] MEDS: cloNIDine TAB* 0.1 MG PO SCH (09:27)
[2016-12-18] MEDS: Metoprolol Tartrate TAB* 25 MG PO SCH (09:27)
[2016-12-18] MEDS: CMCS - Minocycline (NF) 50 MG CAP PO SCH (09:28)
[2016-12-18] MEDS: PARoxetine HCL TAB* 20 MG PO SCH (09:28)
--- NOTE | 2016-12-18 10:08 | RAD ---
Indication: Chest pain. Myocardial perfusion scan was performed utilizing one day protocol. Rest myocardial perfusion was performed after intravenous injection of 10.99 mCi of technetium 99m tetrofosmin. Pharmacological stress was applied and 25.02 mCi of technetium 99m tetrofosmin was injected for the stress portion of the study. There is homogeneous distribution of the radiotracer throughout the left ventricle. No definite reversible change is noted. The ejection fraction at stress is 71%. No focal wall motion abnormality is identified. IMPRESSION: No definite reversible changes are noted in the left ventricle.
--- NOTE | 2016-12-19 06:46 | DS ---
CC: Janet Santos* DISCHARGE SUMMARY: DATE OF ADMISSION: 12/17/16 DATE OF DISCHARGE: 12/18/16 ADMISSION DIAGNOSES: 1. Chest pain. 2. Tourette's syndrome. 3. Hyperlipidemia. 4. Hyperglycemia. 5. Tobacco abuse disorder. DISCHARGE DIAGNOSES: 1. Chest pain. 2. Tourette's syndrome. 3. Hyperlipidemia. 4. Hyperglycemia. 5. Tobacco abuse disorder. HOSPITAL COURSE: The patient is a 56-year-old gentleman, who presented to [facility] with a chief complaint of chest pain on exertion. The patient ruled out for NH with serial troponins. The patient had a nuclear medicine stress test, which is unremarkable. The patient was asymptomatic. The patient was stable for discharge with close follow up with his PCP. PHYSICAL EXAMINATION: On the date of discharge, a thin gentleman, lying in bed , in no acute distress. Vital Signs: Temperature 97.5 degrees, heart rate 56 beats per minute, respiratory rate 20 breaths per minute, pulse ox 100% on room air, and blood pressure 165/75. HEENT: Normocephalic and atraumatic. Pupils equal, round, and reactive to light. Moist mucous membranes. Neck: Supple. No JVD, bruits, palpable thyroid, or lymphadenopathy. Chest: Clear to auscultation and percussion bilaterally. Cardiovascular Exam: S1 and S2 appreciated. Regular rate and rhythm. No murmurs, gallops, or rubs. Abdominal Exam: Positive bowel sounds in all 4 quadrants. Soft, nontender, and nondistended. No hepatosplenomegaly. Extremities: No cyanosis, clubbing, or edema. +2 pulses bilaterally. Neuro: Alert and oriented x3, moves all extremities. Skin: No rashes or abnormalities. STUDIES DONE WHILE IN THE HOSPITAL: Chest x-ray, 12/17/16, impression: No radiographic evidence for acute cardiopulmonary abnormality on a portable chest x- ray. Nuclear medicine scan, no definitive reversal changes noted on the left ventricle. DISCHARGE MEDICATIONS: 1. Minocycline 50 mg twice daily. 2. Meclizine 50 mg 3 times a day as needed. 3. Lipitor 40 mg daily. 4. Aspirin 81 mg daily. 5. Clonidine 0.2 mg daily. 6. Paroxetine 20 mg daily. 7. Omeprazole 40 mg daily. 8. Nitroglycerin tablet 0.4 mg sublingual p.r.n. for chest pain. 9. Metoprolol tartrate 12.5 mg twice daily. 10. Baclofen 10 mg twice daily. DISCHARGE PLAN: The patient will be discharged home and follow up with his PCP within 1 week. Return to the ED if symptoms recur. TIME SPENT: Over 35 minutes were spent on this discharge, more than 20 minutes of which was spent in direct [id number] contact with the patient in evaluation , physical exam, counseling, and coordination of care. [id number]/[facility] #: [id number] SOFY
== END 2016-12-18 12:00 | disposition home or self-care (01) ==
LOC: ED 04:13 → MEDTELE 08:24
PROVIDERS: ADMIT Internal Medicine; ATTEND Internal Medicine
DX: R07.89 Other chest pain (principal); R06.02 Shortness of breath; M79.602 Pain in left arm; F95.2 Tourette's disorder; E78.5 Hyperlipidemia, unspecified; R73.9 Hyperglycemia, unspecified; F17.210 Nicotine dependence, cigarettes, uncomplicated; I25.10 Atherosclerotic heart disease of native coronary artery without angina pectoris; Z79.899 Other long term (current) drug therapy; I10 Essential (primary) hypertension; K21.9 Gastro-esophageal reflux disease without esophagitis; F32.9 Major depressive disorder, single episode, unspecified
CPT/HCPCS: 36415; 71010; 78452; 80053; 80061; 83735; 83880; 84484; 85025; 85610; 85730; 93005; 93017; 96372; 99284; A9270-GY; A9502; G0378; J0280; J1644; J2785

== ENCOUNTER 2017-09-25 08:55 | Emergency (ER) | payer BC ==
--- NOTE | 2017-09-25 09:33 | ED ---
Lower Extremity - HPI Summary HPI Summary: Pt. is a 56-year-old male presents emergency department for a left knee injury that sustained yesterday. He states he was riding his tractor on a hill when the tractor started to roll. Patient states he jumped off tractor and injured his left knee. He states that tractor did not fall on top of him or roll over him. He denies head injury or loss of consciousness. He denies headache, neck pain, chest pain, shortness of breath, abdominal pain. Patient states he went to work after injury and was able to walk with a limp. Patient presents today because pain is worse. Symptoms are mild in severity. Walking and moving knee makes symptoms worse. Nothing makes symptoms better. - History of Current Complaint Chief Complaint: EDExtremityLower Stated Complaint: LT LEG INJURY Time Seen by Provider: 09/25/17 09:23 Hx Obtained From: Patient Pain Intensity: 10 - Allergies/Home Medications Allergies/Adverse Reactions: Allergies Allergy/AdvReac Type Severity Reaction Status Date / Time aspirin Allergy GI Upset Verified 09/25/17 10:33 ibuprofen Allergy GI Upset Verified 09/25/17 10:33 latex Allergy Rash Verified 09/25/17 10:33 apple juice Allergy Severe Anaphylatic Uncoded 05/08/16 06:21 Shock orange juice Allergy Severe Anaphylatic Uncoded 05/08/16 06:21 Shock raw fruits Allergy Anaphylatic Uncoded 09/25/17 09:28 Shock narcotics AdvReac Mild See Comment Uncoded 09/25/17 10:33 PMH/Surg Hx/FS Hx/Imm Hx Previously Healthy: Yes Endocrine/Hematology History: Reports: Hx Anticoagulant Therapy - asporin, Other Endocrine/Hematological Disorders - Hypoglycemia Denies: Hx Blood Disorders, Hx Bone Marrow Disease, Hx Diabetes, Hx Systemic Lupus Erythematosus, Hx Sickle Cell Disease, Hx Thyroid Disease, Hx Anemia, Hx Unexplained Bleeding Cardiovascular History: Reports: Hx Angina, Hx Coronary Artery Disease, Hx Hypercholesterolemia, Hx Hypertension, Hx Myocardial Infarction Denies: Hx Aneurysm, Hx Angioplasty, Hx Auto Implanted Cardiovert Defib, Hx Cardiac Arrest, Hx Cardiomegaly, Hx Congenital Heart Disease, Hx Congestive Heart Failure, Hx Deep Vein Thrombosis, Hx Hypotension, Hx Pacemaker/ICD, Hx Peripheral Vascular Disease, Hx Rheumatic Fever, Hx Syncope, Hx Valvular Heart Disease Comment Only: Other Cardiovascular Problems/Disorders - FOLLOWED BY DR MANDEL Respiratory History: Reports: Hx Chronic Bronchitis, Hx Chronic Obstructive Pulmonary Disease (COPD), Other Respiratory Problems/Disorders - current smoker Denies: Hx Asthma, Hx Cystic Fibrosis, Hx Lung Cancer, Hx Pleural Effusion, Hx Pneumonia, Hx Pulmonary Edema, Hx Pulmonary Embolism, Hx Seasonal Allergies, Hx Sleep Apnea GI History: Reports: Hx Gastroesophageal Reflux Disease - ON DAILY OMEPRAZOLE, Hx Gastrointestinal Bleed, Other GI Disorders - Hx OF ULCERATIVE COLITIS Denies: Hx Cirrhosis, Hx Crohn's Disease, Hx Diverticulosis, Hx Gall Bladder Disease, Hx Hiatal Hernia, Hx Irritable Bowel, Hx Jaundice, Hx Obstructive Bowel , Hx Ileostomy, Hx Pyloric Stenosis, Hx Ulcer History: Denies: Hx Renal Disease Musculoskeletal History: Reports: Hx Arthritis - RIGHT HAND, Hx Orthopedic Injury - R hand, L foot, Hx Tendonitis - BOTH ARMS, Other Musculoskeletal History - L foot drop toe surgery; carpal tunnel relase R hand Sensory History: Reports: Hx Contacts or Glasses, Hx Vision Problem Denies: Hx Hearing Aid Opthamlomology History: Reports: Hx Contacts or Glasses, Hx Vision Problem Neurological History: Reports: Other Neuro Impairments/Disorders - TOURETTE'S SYNDROME, ON DAILY MEDS Denies: Hx Seizures Psychiatric History: Reports: Other Psychiatric Issues/Disorders - Tourette's Denies: Hx Substance Abuse - Surgical History Surgery Procedure, Year, and Place: 1998 LEFT FOOT [facility]. 2012 CARDIAC [facility] [place] Hx Anesthesia Reactions: No - Immunization History Date of Tetanus Vaccine: Unknown Date of Influenza Vaccine: None, doesn't get the flu vaccine Infectious Disease History: No Infectious Disease History: Denies: Hx Clostridium Difficile, Hx Hepatitis, Hx Human Immunodeficiency Virus (HIV), Hx Shingles, Hx Tuberculosis, Traveled Outside the [place] in Last 30 Days - Family History Known Family History: Positive: Cardiac Disease - Social History Occupation: Employed Full-time Lives: With Family Alcohol Use: Rare Alcohol Amount: former alcoholic Substance Use Type: Reports: None Substance Use Comment - Amount & Last Used: Former drug user Hx Tobacco Use: Yes Smoking Status (MU): Heavy Every Day Tobacco Smoker Type: Cigarettes Amount Used/How Often: CURRENT 1/2PPD; PAST 3PPD; HAS SMOKED 38 YRS Length of Time of Smoking/Using Tobacco: 40 YEARS Have You Smoked in the Last Year: Yes Review of Systems Cardiovascular: Negative Respiratory: Negative Gastrointestinal: Negative Positive: Other - left knee pain Neurological: Negative All Other Systems Reviewed And Are Negative: Yes Physical Exam Triage Information Reviewed: Yes Vital Signs On Initial Exam: Initial Vitals Temp Pulse Resp BP Pulse Ox 100 F 82 17 145/75 98 09/25/17 08:57 09/25/17 08:57 09/25/17 08:57 09/25/17 08:57 09/25/17 08:57 Vital Signs Reviewed: Yes Appearance: Positive: Pain Distress - Patient lying on bed, appears uncomfortable at times but nontoxic. Skin: Positive: Warm, Dry Head/Face: Positive: Normal Head/Face Inspection Eyes: Positive: Normal Neck: Positive: Supple Musculoskeletal: Positive: Other - Pain on palpation to the left knee. Knee slightly flexed patient is unable to move secondary to pain. No hip or ankle pain. Good palpable pulse. Compartments are soft. No wounds. Neurological: Positive: Normal, CN Intact II-III Psychiatric: Positive: Affect/Mood Appropriate Procedures - Splinting Left Lower Extremity Pre-Made Type: knee immobilizer Pre-Proc Neuro Vasc Exam: normal Post-Proc Neuro Vasc Exam: normal Diagnostics - Vital Signs Vital Signs Temp Pulse Resp BP Pulse Ox 09/25/17 08:57 100 F 82 17 145/75 98 - Laboratory Lab Statement: Any lab studies that have been ordered have been reviewed, and results considered in the medical decision making process. Lower Extremity Course/Dx - Course Course Of Treatment: Pt. presenting for isolated left knee injury. He declines pain medication. Knee xray shows large effusion, negative for fx or dislocation , reading per radiology. Results discussed with pt. Placed on crutches and knee immobilizer. To ice and elevate. Tylenol or motrin for pain as directed. To f.u with ortho. for further evaluation. Work excuse given. Pt. understands and agrees with plan. - Diagnoses Differential Diagnosis/HQI/PQRI: Positive: Fracture (Closed), Sprain, Strain Provider Diagnoses: Knee effusion, Knee injury Discharge - Sign-Out/Discharge Documenting (check all that apply): Patient Departure - Discharge Plan Condition: Good Disposition: HOME Patient Education Materials: Knee Sprain (ED), Swollen Knee Joint (ED) Forms: *Work Release Referrals: Leon Ybarra MD [Medical Doctor] - Janet Sy NP [Nurse Practitioner] - Additional Instructions: Call Dr. Ybarra's office to schedule an appointment for further evaluation Wear immobilizer Ice and elevate Tylenol or motrin for pain as directed Return to ER if symptoms change or worsen - Billing Disposition and Condition Condition: GOOD Disposition: Home
[2017-09-25] MEDS ORDERED: Acetaminop/Codeine 30 MG TAB* 1 TAB (300 MG/30 MG) PO ONE (09:36)
--- NOTE | 2017-09-25 10:20 | RAD ---
HISTORY: Fall, left knee injury COMPARISONS: None VIEWS: 4, Frontal, lateral, axial, and oblique views of the left knee FINDINGS: BONE DENSITY: Normal. BONES: There is no displaced fracture. JOINTS: There is mild medial and lateral prominent joint space narrowing with minimal medial compartment osteophyte formation. There is a large suprapatellar joint effusion. There is no appreciable lipohemarthrosis. ALIGNMENT: There is no dislocation. SOFT TISSUES: Unremarkable. OTHER FINDINGS: None. IMPRESSION: LARGE EFFUSION. NO ACUTE OSSEOUS INJURY. IF SYMPTOMS PERSIST, RECOMMEND REPEAT IMAGING.
[2017-09-25 11:11] VITALS: BP 158/92
== END 2017-09-25 11:10 | disposition home or self-care (01) ==
LOC: ED 08:55
DX: S89.92XA Unspecified injury of left lower leg, initial encounter (principal); W17.89XA Other fall from one level to another, initial encounter; Y93.I9 Activity, other involving external motion; Y92.9 Unspecified place or not applicable; M25.462 Effusion, left knee; F17.210 Nicotine dependence, cigarettes, uncomplicated; F95.2 Tourette's disorder; K21.9 Gastro-esophageal reflux disease without esophagitis; Z79.82 Long term (current) use of aspirin; Z79.899 Other long term (current) drug therapy
CPT/HCPCS: 99282; A9270-GY

== ENCOUNTER 2017-12-22 11:12 | Observation (INO) | payer BC ==
[2017-12-22] MEDS ORDERED: Ondansetron INJ* 2 MG/ML VIAL IV ONE (11:55)
[2017-12-22] MEDS ORDERED: Nitroglycerin TAB 0.4 MG* 0.4 MG TAB SL ONE (11:55)
[2017-12-22] MEDS ORDERED: Aspirin 81 mg CHEW TAB* 81 MG TAB.CHEW PO ONE (11:55)
[2017-12-22] MEDS ORDERED: Morphine INJ* 4 MG/ML 1 ML SYRINGE (NEW SYRINGE VERSION) IV ONE ×3 (11:55→16:07)
--- NOTE | 2017-12-22 12:07 | ED ---
Abdominal Pain/Male - HPI Summary HPI Summary: Patient presents from PCP's office with chronic diarrhea over past 2 weeks after taking an antibiotic for a "intestinal infection" dx'd via CT scan. Chart reveals h/o Ulcerative Colitis and pt reports this was dx'd in the [address]. CT scan from 12/12/2017 report reveals: "1. focal segmental mucosal thickening with stranding of the adjacent fat small bowel at the level of the ileum. The appearance is suggestive of an inflammatory or infectious enteritis with small bowel neoplasm while repairs within differential. Recommend attention on follow up imaging including contrast enhanced MR enterography, considerations of capsule endoscopy, or fluoroscopic examination of the small bowel. 2. diverticulosis 3. atherosclerosis 4. Multiple hepatic cysts. While these have a nonaggressive appearance these have slightly increased in size compared 2014 exam. Recommend consideration of catheterization with liver ultrasound in the non-acute setting to exclude solid hepatic parenchymal lesion" He did not have diarrhea prior to antibiotics. He denies hematochezia, melena. H/o GERD and takes 40mg omeprazole daily. Avoid NSAID's d/t gastric irritation - no known h/ o ulcer, GI bleed but chart reports h/o "GI bleed". Has not tried any additional GI meds for his ab pain which he reports as being diffuse today. Denies fever, chills, vomiting. Continues to have diarrhea. He is also reporting chest pain in the center of his chest and over to the right that occasionally moves to the left. He reports he's had chest pain like this "his whole life". 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 Associated symptoms of headache, double vision, nausea with sweats. He denies shortness of breath, numbness, tingling, weakness or new onset back pain. He does have musculoskeletal pain that he deals with on a daily basis. He has h/o CAD and [place] w/ stents placed in 2011 - takes ASA 81mg w/ plavix, lopressor and catapres - has not taken meds yet today as he's just getting off of scene shifter. Reports catapres is for tourettes which presents as LE tremor. Has nitro PRN at home but reports he hasn't taken in years. - History of Current Complaint Chief Complaint: EDAbdPain Stated Complaint: ABD PAIN Time Seen by Provider: 12/22/17 11:34 Hx Obtained From: Patient Pain Intensity: 10 - Allergies/Home Medications Allergies/Adverse Reactions: Allergies Allergy/AdvReac Type Severity Reaction Status Date / Time aspirin Allergy GI Upset Verified 09/25/17 10:33 ibuprofen Allergy GI Upset Verified 09/25/17 10:33 latex Allergy Rash Verified 09/25/17 10:33 orange juice Allergy Anaphylatic Verified 12/22/17 11:39 Shock apple juice Allergy Severe Anaphylatic Uncoded 05/08/16 06:21 Shock raw fruits Allergy Anaphylatic Uncoded 09/25/17 09:28 Shock narcotics AdvReac Mild See Comment Uncoded 09/25/17 10:33 Home Medications: Home Medications Atorvastatin* [Lipitor*] 40 mg PO DAILY 12/22/17 [History Confirmed 12/22/17] cloNIDine TAB* [Catapres 0.1 MG TAB*] 0.2 mg PO BEDTIME 12/22/17 [History Confirmed 12/22/17] PMH/Surg Hx/FS Hx/Imm Hx Previously Healthy: Yes Endocrine/Hematology History: Reports: Hx Anticoagulant Therapy - ASA + plavix, Other Endocrine/Hematological Disorders - Hypoglycemia Denies: Hx Blood Disorders, Hx Bone Marrow Disease, Hx Diabetes, Hx Systemic Lupus Erythematosus, Hx Sickle Cell Disease, Hx Thyroid Disease, Hx Anemia, Hx Unexplained Bleeding Cardiovascular History: Reports: Hx Angina, Hx Coronary Artery Disease - stents placed - 2011, Hx Hypercholesterolemia, Hx Hypertension, Hx Myocardial Infarction Denies: Hx Aneurysm, Hx Angioplasty, Hx Auto Implanted Cardiovert Defib, Hx Cardiac Arrest, Hx Cardiomegaly, Hx Congenital Heart Disease, Hx Congestive Heart Failure, Hx Deep Vein Thrombosis, Hx Hypotension, Hx Pacemaker/ICD, Hx Peripheral Vascular Disease, Hx Rheumatic Fever, Hx Syncope, Hx Valvular Heart Disease Comment Only: Other Cardiovascular Problems/Disorders - FOLLOWED BY DR MANDEL Respiratory History: Reports: Hx Chronic Bronchitis, Hx Chronic Obstructive Pulmonary Disease (COPD), Other Respiratory Problems/Disorders - current smoker Denies: Hx Asthma, Hx Cystic Fibrosis, Hx Lung Cancer, Hx Pleural Effusion, Hx Pneumonia, Hx Pulmonary Edema, Hx Pulmonary Embolism, Hx Seasonal Allergies, Hx Sleep Apnea GI History: Reports: Hx Gastroesophageal Reflux Disease - ON DAILY OMEPRAZOLE, Hx Gastrointestinal Bleed, Other GI Disorders - Hx OF ULCERATIVE COLITIS Denies: Hx Cirrhosis, Hx Crohn's Disease, Hx Diverticulosis, Hx Gall Bladder Disease, Hx Hiatal Hernia, Hx Irritable Bowel, Hx Jaundice, Hx Obstructive Bowel , Hx Ileostomy, Hx Pyloric Stenosis, Hx Ulcer History: Denies: Hx Renal Disease Musculoskeletal History: Reports: Hx Arthritis - RIGHT HAND, Hx Orthopedic Injury - R hand, L foot, Hx Tendonitis - BOTH ARMS, Other Musculoskeletal History - L foot drop toe surgery; carpal tunnel relase R hand Sensory History: Reports: Hx Contacts or Glasses, Hx Vision Problem Denies: Hx Hearing Aid Opthamlomology History: Reports: Hx Contacts or Glasses, Hx Vision Problem Neurological History: Reports: Other Neuro Impairments/Disorders - TOURETTE'S SYNDROME, ON DAILY MEDS Denies: Hx Seizures Psychiatric History: Denies: Hx Substance Abuse - Surgical History Surgery Procedure, Year, and Place: 1998 LEFT FOOT [facility]. 2012 CARDIAC [facility] Hx Anesthesia Reactions: No - Immunization History Date of Tetanus Vaccine: Unknown Date of Influenza Vaccine: None, doesn't get the flu vaccine Infectious Disease History: No Infectious Disease History: Denies: Hx Clostridium Difficile, Hx Hepatitis, Hx Human Immunodeficiency Virus (HIV), Hx Shingles, Hx Tuberculosis, Traveled Outside the [place] in Last 30 Days - Family History Known Family History: Positive: Cardiac Disease - Social History Lives: With Family Alcohol Use: None Alcohol Amount: former alcoholic Hx Substance Use: Yes - not currently Substance Use Type: Reports: None Substance Use Comment - Amount & Last Used: Former drug user Hx Tobacco Use: Yes Smoking Status (MU): Heavy Every Day Tobacco Smoker Type: Cigarettes Amount Used/How Often: CURRENT 1/2PPD; PAST 3PPD; HAS SMOKED 38 YRS Length of Time of Smoking/Using Tobacco: 40 YEARS Have You Smoked in the Last Year: Yes Review of Systems Constitutional: Other - sweats Positive: Diplopia ENT: Negative Positive: Chest Pain. Negative: Palpitations Respiratory: Negative Negative: Shortness Of Breath, Cough Positive: Abdominal Pain, Diarrhea, Nausea. Negative: Vomiting Positive: dysuria - for years Musculoskeletal: Other - baseline arthritis Skin: Negative Positive: Headache. Negative: Weakness, Paresthesia, Numbness, Syncope, Slurred Speech Psychological: Normal All Other Systems Reviewed And Are Negative: Yes Physical Exam Triage Information Reviewed: Yes Vital Signs On Initial Exam: Initial Vitals Temp Pulse Resp BP Pulse Ox 98.0 F 68 18 171/100 100 12/22/17 11:16 12/22/17 11:16 12/22/17 11:16 12/22/17 11:16 12/22/17 11:16 Vital Signs Reviewed: Yes Appearance: Positive: Pain Distress, Thin Skin: Positive: Warm, Skin Color Reflects Adequate Perfusion, Dry - no pallor Head/Face: Positive: Normal Head/Face Inspection Eyes: Positive: Conjunctiva Clear - anicteric sclera ENT: Positive: Hearing grossly normal, Pharynx normal - mucosa moist - no pallor Respiratory/Lung Sounds: Positive: Clear to Auscultation, Breath Sounds Present. Negative: Rales, Rhonchi, Wheezes Cardiovascular: Positive: Normal, RRR, S1, S2. Negative: Murmur, Rub, Leg Edema Left, Leg Edema Right Abdomen Description: Positive: Guarding, Other: - diffuse ab TTP - no rebounding Bowel Sounds: Positive: Present Musculoskeletal: Positive: Normal, Strength/ROM Intact Neurological: Positive: Normal, Sensory/Motor Intact, Alert, Oriented to Person Place, Time, CN Intact II-III Psychiatric: Positive: Normal - concerned, in pain but polite and cooperative Diagnostics - Vital Signs Vital Signs Temp Pulse Resp BP Pulse Ox 12/22/17 11:16 98.0 F 68 18 171/100 100 - Laboratory Result Diagrams: 12/22/17 12:11 12/22/17 12:11 Lab Statement: Any lab studies that have been ordered have been reviewed, and results considered in the medical decision making process. Re-Evaluation - Re-Evaluation First Eval Change: Unchanged - no change in chest or ab pain w/ 4mg morphine Second Eval Change: Improved - headache, double vision and chest pain resolved w/ nitro and additional 2mg morphine - BP improved from 200's/100's to 140's/ - ab pain worse and focal to epigastrum/LUQ (may have triggered GERD pain w/ ASA) - orderd protonix Third Eval Change: Improved - stomach pain from 12/03 - 05/03 Fourth Eval Change: Worse - Upon reviewing pt's results and consulting w/ GI, he developed another bout of chest pain, this time Lt sided. ECG performed and no change from previous today, no ST elevation, NSR. He did report he was hungry and this Lt sided chest pain could be from stomach pain however given his h/o cardiac dz and intensity of pain, will admit for cardiac w/u. Re-ordered 3rd troponin. BP remains well controlled. Will also order GI cocktail and morphine for pain. Spoke w/ Dr. Villa prior to 2nd episode of CP who agreed to f/u outpt but now that he will be admitted for CP inpt, consult in hospital from GI may be beneficial, especially if a more definitive GI dx may be made so appropriate tx may be implemented. Diff dx: Crohn's, c. diff, gastritis w/ or w/o ulcer/bleed - does not appear to have acute GI bleed today but will order stool occult blood. Already ordered c. diff stool - pt has not been able to move bowels since here so not yet collected. Would also hold anitbiotics and refrain from NSAID's until further GI eval. Abdominal Pain Fem Course/Dx - Course Course Of Treatment: ECG: sinus keo, 57 bpm, no ST elevations - unchanged from previous. Labs: H&H stable and no elevated WBC's or inflammatory markers. CXR: no acute cardiopulm findings. VITALS: BP improved w/ nitro - his home anti-hypertensive meds were ordered as well - has not had a spike in BP since and no return of BENEDICT, diploplia, sweats. Discussed case w/ Dr. Tanner and Dr. Villa - Flores to admit. Recommend GI consult while admitted - only spoke w/ Dr. Villa re: outpt f/u - this plan has changed since return of CP. - Diagnoses Provider Diagnoses: Chest pain, Abdominal pain, Diarrhea Discharge - Sign-Out/Discharge Documenting (check all that apply): Patient Departure - Discharge Plan Condition: Stable Disposition: ADMITTED TO [facility] - Billing Disposition and Condition Condition: STABLE Disposition: Admitted to [facility]
[2017-12-22] MEDS ORDERED: cloNIDine TAB* 0.1 MG PO ONE (12:08)
[2017-12-22] MEDS ORDERED: Metoprolol Tartrate TAB* 25 MG PO ONE (12:09)
[2017-12-22 12:26] LABS: ABS Basophils 0.1 10^3/ul (0-0.2); ABS Eosinophils 0.2 10^3/ul (0-0.6); ABS Lymphocytes 1.7 10^3/ul (1.0-4.8); ABS Monocytes 0.7 10^3/ul (0-0.8); ABS Neutrophils 5.6 10^3/ul (1.5-7.7); ABS Nucleated RBC 0 10^3/ul; Eosinophil % 1.9 % (0-6); Hematocrit 40 % (42-52); Hemoglobin 13.8 g/dl (14.0-18.0); Lymphocyte % 20.5 % (25-47); Mean Corpuscular HGB Conc 34 g/dl (31-36); Mean Corpuscular Hemoglobin 31 pg (27-31); Mean Corpuscular Volume 90 fL (80-94); Mean Platelet Volume 7.4 um3 (7.4-10.4); Nucleated Red Blood Cells % 0.1; Platelet Count 314 10^3/ul (150-450); Red Blood Count 4.46 10^6/ul (4.00-5.40); Red Cell Distribution Width 14 % (10.5-15); White Blood Count 8.1 10^3/ul (3.5-10.8)
[2017-12-22 12:37] LABS: INR 0.98 (0.77-1.02)
[2017-12-22] MEDS ORDERED: Pantoprazole IV* 40 MG IV ONE (12:40)
[2017-12-22 12:52] LABS: EGFR Non-African American 108.6 (>60)
--- NOTE | 2017-12-22 13:03 | RAD ---
Indication: Chest pain. Single frontal view of the chest performed at 1235 hours was reviewed. Comparison is made with previous exam dated December 17, 2016. No mediastinal shift is noted. Heart is of normal size and configuration. Lung coleman appear clear. IMPRESSION: NO ACTIVE CARDIOPULMONARY DISEASE IS NOTED.
[2017-12-22 13:56] LABS: Urine Appearance Clear; Urine Blood Negative (Negative); Urine Color Yellow; Urine Ketones Negative (Negative); Urine Protein Negative (Negative); Urine Specific Gravity 1.008 (1.010-1.030); Urine Urobilinogen Negative (Negative)
[2017-12-22] MEDS ORDERED: Lidocaine 2% VISCOUS* 15 ML UDC PO ONE (16:05)
[2017-12-22] MEDS ORDERED: Al Hydrox/Mg Hydrox/Simet LIQ* 30 ML UDC PO ONE (16:05)
[2017-12-22] MEDS ORDERED: Nitroglycerin TAB 0.4 MG* 0.4 MG TAB SL PRN (16:11)
[2017-12-22] MEDS ORDERED: Meclizine TAB* 12.5 MG PO PRN (16:11)
[2017-12-22] MEDS ORDERED: Iohexol 300* (CONTRAST) 10 ML SDV IV ONE (18:51)
--- NOTE | 2017-12-22 20:01 | RAD ---
INDICATION: Abdominal pain. Possible gastrointestinal infection. History of pancreatitis and colitis. COMPARISON: No relevant prior exams available on the [facility] [place] [place] PACS for comparison. TECHNIQUE: Multidetector CT images were obtained from the lung bases to the ischial tuberosities with 88 mL Omnipaque 300 IV and oral contrast. Multiplanar reformation. REPORT: VISUALIZED INFERIOR THORAX: Mild bibasilar subsegmental atelectasis. LIVER / GALLBLADDER / PANCREAS / SPLEEN: Multiple sharply circumscribed water density hepatic lesions consistent with cysts. No suspicious focal liver lesions evident. No CT abnormality of the gallbladder. Negative for biliary dilatation. Unremarkable pancreas and spleen. ALIMENTARY TRACT: Moderate gastric distention with air and enteric contrast. No mural thickening of the stomach evident. No CT abnormality of the jejunum, ileum, appendix visualized along the RIGHT pelvic sidewall. Mild colonic diverticulosis without findings of acute diverticulitis. Negative for ascites, free air, or significant hernias. MESENTERIC: Unremarkable. ADRENAL / GENITOURINARY: Normal adrenal glands. Symmetric nephrograms and pyelograms. No suspicious focal renal lesions. Unremarkable ureters and distended urinary bladder. Grossly symmetric seminal vesicles. RETROPERITONEAL: Negative for lymphadenopathy. VASCULAR: Mild to moderate atherosclerotic plaque of normal diameter abdominal aorta and iliac arteries. Physiologic decompression of the IVC indicating lower volume state. BONES: Mild anterior compression deformity at the L1 vertebral body without change. Negative for suspicious osseous lesions. SOFT TISSUE: Unremarkable. IMPRESSION: #. Moderate gastric distention without mural thickening or other CT abnormality of the stomach. #. Normal appendix documented. #. Mild colonic diverticulosis without findings of acute diverticulitis. #. Negative for obstructive uropathy. #. Negative for lymphadenopathy.
[2017-12-22] MEDS: cloNIDine TAB* 0.1 MG PO SCH (21:27)
[2017-12-22] MEDS: Baclofen TAB* 10 MG PO SCH (21:27)
[2017-12-22] MEDS: Metoprolol Tartrate TAB* 25 MG PO SCH (21:28)
[2017-12-22] MEDS: Heparin VIAL(*) 5000 UNITS/ML VIAL (FIVE THOUSAND) SUBCUT SCH (21:31)
--- NOTE | 2017-12-22 22:04 | HP ---
CC: Dr. Iyer.* HISTORY AND PHYSICAL: DATE OF ADMISSION: 12/22/17 PROVIDER: Mateo Villalpando NP ATTENDING PHYSICIAN: Dr. Finley * (report dictated by Mateo Villalpando NP) PRIMARY CARE PROVIDER: Dr. Iyer. CHIEF COMPLAINT: Abdominal pain. HISTORY OF PRESENT ILLNESS: Mr. Bejarano is a 57-year-old male with the past medical history of nonobstructive coronary artery disease, Tourette's syndrome, hyperlipidemia, hyperglycemia, hypertension, and current tobacco abuse, who presented to the emergency department today with complaints of abdominal pain. The patient reports that approximately 3 weeks ago, he developed acute abdominal pain in which he was seen by his primary care provider and was sent for a CAT scan of the abdomen which showed: "1. Focal segmental mucosal thickening with stranding of the adjacent fat of small at the level of the ileum suggestive of inflammatory or infectious enteritis. Though small bowel neoplasm while rare is within the differential" and the primary placed him on antibiotics. The patient is not able to tell me the name of the antibiotic. The patient reports 2 days later, he developed diarrhea reporting 6 to 8 stools a day and only took the antibiotics for 2 to 3 days and then stopped the antibiotics. The patient continued to have abdominal pain. He did not return back to his primary up until today for abdominal pain and the primary sent him to the emergency department for further evaluation. The patient's labs were unremarkable. He was going to be sent home from the emergency department with follow up with GI as an outpatient, however, he then developed chest pain and Hospital Medicine was asked to evaluate him for admission. On evaluation in the emergency department, the patient reports the chest pain resolved. He reports he has chronic chest pain at his baseline and this was no different than his baseline. The patient was also noted to have a blood pressure in the 200s, however, this appeared to be on admission, per the patient he missed, his missed his morning meds. The patient also reported to the ER provider some diaphoresis, headache, double vision, and nausea. This all resolved ones the blood pressure came down. Currently, he denies any chest pain. He reports his biggest complaint is his abdominal pain in which he reports right lower quad and left lower quad pain. He reports his diarrhea stopped approximately 2 days ago and has been having "small chunks of stool." He reports he has been eating only soft foods and soup. He denies any fevers or chills. He denies any blood noted in the stool. The patient does report a distant history in of being diagnosed with ulcerative colitis in which he has not had followup since and denies any symptoms up until 3 weeks ago. 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 He reports that he continues to smoke a half pack to one pack a day of cigarettes. The patient will be admitted to the telemetry unit where he will have his troponins trended. The first 2 are flat at 0.00. He has not EKG changes. Plan will be to obtain an abdomen CT with contrast with further GI evaluation and workup. PAST MEDICAL HISTORY: 1. Nonobstructive coronary artery disease. 2. Tourette's syndrome. 3. Hyperlipidemia. 4. Tobacco abuse disorder. 5. Hypertension. CURRENT MEDICATIONS: 1. Lipitor 40 mg p.o. daily. 2. Nitroglycerine 0.4 mg sublingual q.5 mg p.r.n. 3. Antivert 50 mg p.o. t.i.d. p.r.n. 4. Prilosec 40 mg p.o. daily. 5. Aspirin 81 mg p.o. daily. 6. Paxil 20 mg p.o. daily. 7. Metoprolol tartrate 12.5 mg p.o. b.i.d. 8. Baclofen 10 mg p.o. b.i.d. 9. Clonidine 0.2 mg p.o. at bedtime. 10. Clonidine 0.1 mg p.o. daily. ALLERGIES: ASPIRIN, IBUPROFEN, LATEX, ORANGE JUICE, APPLE JUICE, RAW FRUITS and NARCOTICS. FAMILY HISTORY: History father had history of coronary artery disease having 5 heart attacks. Mother has a history of breast cancer. SOCIAL HISTORY: The patient smokes half a pack to 1 pack of cigarettes a day for past 40 years. Denies alcohol use. Reports he used to be on opiate user quitting in 1981. 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 He is and lives with his , who is his healthcare proxy. REVIEW OF SYSTEMS: A 14-point review of systems was performed. All the pertinent positives and negatives are mentioned in the history of present illness. Otherwise, they are negative. PHYSICAL EXAMINATION GENERAL APPEARANCE: A chronically ill, 57-year-old male, alert and oriented x3 , in no acute distress, lying in the emergency department stretcher. is at the bedside. VITAL SIGNS: Temperature 98.0, heart rate 76, respirations 20, O2 sat 100% on room air, blood pressure is 149/80. HEENT: Head is normocephalic, atraumatic. Pupils are equal and reactive to light. Oropharynx is clear. Moist mucous membranes. The patient has no teeth. NECK: Supple. No JVD noted. LUNGS: Clear to auscultation bilaterally. Good aeration throughout. CARDIAC: S1, S2. Regular rate and rhythm. No murmurs, rubs, or gallops appreciated. ABDOMEN: Positive bowel sounds, nondistended, tender to right lower quad with mild guarding and tenderness to left mid to lower quad with mild guarding. No rebound tenderness. EXTREMITIES: No clubbing, cyanosis, or edema. 2+ DP pulses bilaterally. NEURO: Alert and oriented x3. Moves all extremities. Sensation to lower extremities intact to light touch. No focal deficits noted. SKIN: No rashes, lesions, or open wounds noted. LABORATORY DATA AND DIAGNOSTIC STUDIES: WBC 8.1, RBC 4.46, HGB 13.8, HCT 40, MCV 90, MCH 31, MCHC 34, RDW 14, platelet count 314. INR 0.98. Sodium 137, potassium 3.7, chloride 104, carbon dioxide 27, anion gap 6, BUN 12, creatinine 0.74, glucose 86, lactic acid 1.0, calcium 9.1, magnesium 2.1. Total bilirubin 0.40, AST 17, ALT 14, alkaline phosphatase 85. Troponin 0.00. Total protein 6.8, albumin 3.9, TSH 2.87. Urinalysis: Unremarkable. Chest x-ray, impression: No active cardiopulmonary disease noted. EKG: Sinus bradycardia with the rate of 54. In comparison to prior EKG, he has no acute ST changes noted. ASSESSMENT AND PLAN: Mr. Chatterjee is a 57-year-old male with a past medical history of nonobstructive coronary artery disease, hypertension, hyperlipidemia , current tobacco abuse, who presents to the emergency department with the report of 3 week of abdominal pain in which he was started on antibiotics as an outpatient, in which he then developed diarrhea for approximately 10 to 14 days and which he reports stopped 2 days ago. Continuing to have abdominal pain, sent to the emergency department by his primary care provider today for further evaluation. 1. Abdominal pain. Unclear etiology. The patient is very tender on exam and I do think this warrants further workup with the abdomen and pelvis CT scan with oral and IV contrast. I discussed the case with Dr. Zavala, cutting department supervisor who will consult. Most likely the patient will have an upper endoscopy tomorrow and it will be decided whether he should have a colonoscopy inpatient or outpatient. We will make the patient n.p.o. after midnight. Continue proton pump inhibitor. The patient currently is not having any further diarrhea. We will order stool cultures to assess for any pathology. 2. Chest pain. The patient reports he has chronic chest pain at baseline and did experience chest pain in the emergency department with noted hypertensive episode reporting he did not take his morning blood pressure medications. Once his blood pressure came down, his chest pain resolved. At that time, an EKG and troponin were drawn. Both of which were unremarkable. We will continue to monitor on telemetry and trend a 3rd troponin. He may benefit from an outpatient cardiac stress test. Continue aspirin and metoprolol. Please note that the patient had a cardiac catheterization in 2012 which showed normal left ventricular systolic function with evidence of decreased left ventricular diastolic compliance evidenced by increased left ventricular end diastolic pressure and LVEF estimated at 50% to 60%. He had noted coronary artery disease , calcified proximal LAD with 35% ostial lesion, followed by 60% to 65% proximal lesion. Mid lesion in the medial distal branch of bifurcation made diagonal branch a 50% to 55%. A 55% to 60% proximal to right coronary artery with 50% to 55% mid right coronary artery narrowing. No lesions appeared to be at the caliber of 70% or greater. He also underwent a cardiac nuclear stress test the last year November 2016, which placed him at low risk. 3. Anemia. The patient is noted to have a history of mild anemia going back as far as 2011. I will add on iron studies and will add stool for occult blood. 4. Hypertension. Now controlled. Continue home meds. 5. Hyperlipidemia. Continue Lipitor. 6. DVT prophylaxis. Heparin subcu. 7. Code status. Full code. 8. Hospital status. Observation. TIME SPENT: Approximately 60 minutes were spent on this admission. MATEO VILLALPANDO, NURSE CHEMICAL DEPENDENCY [id number]/[facility] #: [id number] [facility] HAYES HOSPITALGabbie
[2017-12-23] MEDS: Heparin VIAL(*) 5000 UNITS/ML VIAL (FIVE THOUSAND) SUBCUT SCH ×3 (05:59→21:06)
[2017-12-23 06:27] LABS: ABS Basophils 0.1 10^3/ul (0-0.2); ABS Eosinophils 0.2 10^3/ul (0-0.6); ABS Lymphocytes 1.8 10^3/ul (1.0-4.8); ABS Monocytes 0.3 10^3/ul (0-0.8); ABS Nucleated RBC 0 10^3/ul; Eosinophil % 1.9 % (0-6); Hematocrit 36 % (42-52); Hemoglobin 12.2 g/dl (14.0-18.0); Lymphocyte % 19.4 % (25-47); Mean Corpuscular HGB Conc 34 g/dl (31-36); Mean Corpuscular Hemoglobin 30 pg (27-31); Mean Corpuscular Volume 89 fL (80-94); Mean Platelet Volume 7.2 um3 (7.4-10.4); Nucleated Red Blood Cells % 0.1; Platelet Count 260 10^3/ul (150-450); Red Blood Count 4.07 10^6/ul (4.00-5.40); Red Cell Distribution Width 14 % (10.5-15); White Blood Count 9.5 10^3/ul (3.5-10.8)
[2017-12-23 06:49] LABS: EGFR Non-African American 100.7 (>60)
[2017-12-23] MEDS: Aspirin 81 mg CHEW TAB* 81 MG TAB.CHEW PO SCH (08:31)
[2017-12-23] MEDS: Atorvastatin* 40 MG TAB PO SCH (08:32)
[2017-12-23] MEDS: cloNIDine TAB* 0.1 MG PO SCH ×2 (08:32→21:05)
[2017-12-23] MEDS: Omeprazole CAP* 20 MG PO SCH (08:32)
[2017-12-23] MEDS: PARoxetine HCL TAB* 10 MG PO SCH (08:32)
[2017-12-23] MEDS: Baclofen TAB* 10 MG PO SCH ×2 (08:32→21:06)
[2017-12-23] MEDS: Metoprolol Tartrate TAB* 25 MG PO SCH ×2 (08:32→21:06)
[2017-12-23] MEDS ORDERED: Mouth Piece, Nicotine* 1 EACH CARTRIDGE INH PRN (11:21)
--- NOTE | 2017-12-23 11:22 | PN ---
Subjective Date of Service: 12/23/17 Interval History: Patient reports continued abdominal pain. He is unhappy he is not allowed to eat. He denies any further diarrhea. Objective Active Medications: Aspirin (Aspirin 81 Mg Chew Tab*) 81 mg PO DAILY [facility] Last Admin: 12/23/17 08:31 Dose: 81 mg Atorvastatin Calcium (Lipitor*) 40 mg PO DAILY [facility] Last Admin: 12/23/17 08:32 Dose: 40 mg Baclofen (Lioresal Tab*) 10 mg PO BID [facility] Last Admin: 12/23/17 08:32 Dose: 10 mg Clonidine HCl (Catapres Tab*) 0.2 mg PO BEDTIME [facility] Last Admin: 12/22/17 21:27 Dose: 0.2 mg Clonidine HCl (Catapres Tab*) 0.1 mg PO DAILY [facility] Last Admin: 12/23/17 08:32 Dose: 0.1 mg Heparin Sodium (Porcine) (Heparin Vial(*)) 5,000 units SUBCUT Q8HR [facility] Last Admin: 12/23/17 05:59 Dose: 5,000 units Meclizine HCl (Antivert Tab*) 50 mg PO TID PRN PRN Reason: DIZZINESS Metoprolol Tartrate (Lopressor Tab*) 12.5 mg PO BID [facility] Last Admin: 12/23/17 08:32 Dose: 12.5 mg Nitroglycerin (Nitroglycerin Tab 0.4 Mg*) 0.4 mg SL Q5M PRN PRN Reason: PAIN - CHEST Omeprazole (Prilosec Cap*) 40 mg PO DAILY@0730 [facility] Last Admin: 12/23/17 08:32 Dose: 40 mg Paroxetine HCl (Paxil Tab*) 20 mg PO DAILY [facility] Last Admin: 12/23/17 08:32 Dose: 20 mg Vital Signs - 8 hr 12/23/17 12/23/17 12/23/17 03:38 08:00 08:04 Temperature 97.8 F 97.8 F Pulse Rate 55 55 Respiratory 18 16 16 Rate Blood Pressure 119/55 133/72 (mmHg) O2 Sat by Pulse 98 100 Oximetry Oxygen Devices in Use Now: None Appearance: 57 yo male A+O x3 in NAD - Eyes: No Scleral Icterus, PERRLA Ears/Nose/Mouth/Throat: NL Teeth, Lips, Gums, Mucous Membranes Moist Neck: NL Appearance and Movements; NL JVP Respiratory: Symmetrical Chest Expansion and Respiratory Effort, Clear to Auscultation Cardiovascular: NL Sounds; No Murmurs; No JVD, RRR, No Edema Abdominal: - - soft, non-distended - tender with guarding to RLQ and LLQ - NL BS Extremities: No Edema, No Clubbing, Cyanosis Skin: No Rash or Ulcers, No Nodules or Sclerosis Neurological: Alert and Oriented x 3, NL Sensation, NL Gait, NL Muscle Strength and Tone Lines/Tubes/Other Access: Clean, Dry and Intact Peripheral IV Nutrition: - - NPO Result Diagrams: 12/23/17 06:14 12/23/17 06:14 Assess/Plan/Problems-Billing Assessment: Mr. Bejarano is a 57-year-old male with the past medical history of nonobstructive coronary artery disease, Tourette's syndrome, hyperlipidemia, hyperglycemia, hypertension, and current tobacco abuse, who presented to the emergency department today with complaints of abdominal pain for 3 weeks and who had an episode of CP in the ER, - Patient Problems (1) Abdominal pain Comment: - unclear etiology. CT abdomen with contrast unremarkable - with some noted moderate gastric distention w/o thickening. - GI consult penidng - possible endoscopy today? NPO (2) Chest pain Comment: -resolved - chronic angina at baseline - hx of nonobstructive CAD - chronic angina at baseline - c/o in ER of CP with HTN epsiode. 4 flat troponins, no EKG changes. Stress test last year low risk. Will schedule outpt stress test. - continue ASA, lipitor, BB (3) HTN (hypertension) Comment: - controlled on home meds. continue Metoprolol, clonidine (4) DVT prophylaxis Comment: HSQ Status and Disposition: OBV. GI consult pending - possible endoscopy today
[2017-12-23] MEDS: Mouth Piece, Nicotine* 1 EACH CARTRIDGE INH PRN (11:30)
[2017-12-23] MEDS: Nicotine Inhaler* 10 MG AMP INH PRN (11:30)
[2017-12-23] MEDS ORDERED: NS 0.9% 1000 ML* 1,000 ML IV SCH (13:45)
[2017-12-23] MEDS ORDERED: D5LR 1000 ML BAG* 1,000 ML IV SCH (14:00)
[2017-12-23] MEDS ORDERED: fentaNYL* 50 MCG/ML 2 ML VIAL (100 MCG VIAL) ONE (16:56)
[2017-12-23] MEDS ORDERED: Midazolam* 1 MG/ML 10 ML VIAL (10 MG) ONE (16:57)
--- NOTE | 2017-12-24 04:09 | PRO ---
DATE: 12/23/17 - ROOM #447 REFERRING PHYSICIANS: Dr. Kurtis Iyer, Clarisse Mckee MD * PROCEDURE: Upper gastrointestinal endoscopy and CLOtest. INDICATION: This 57-year-old man was admitted with abdominal pain after a variable sequence of symptoms over 3 weeks. This seemed to go in multiple directions. Most prominently, he was tender in the right lower quadrant. Informed consent was obtained with the patient and his was in the room. ENDOSCOPIST: Dr. Zavala. MEDICATION: Midazolam 5, fentanyl 50. FINDINGS: He is a somewhat unkempt appearing middle-aged man with an exuberant growth of gerardo that is untrimmed. He is in no distress. His abdomen seems benign. EGD: Esophagus - easily entered and the mucosa is normal in the upper, mid and lower esophagus. The squamocolumnar junction is at 39 and somewhat loose and there was a small hiatal hernia, but no erosions and no Bassett's change. There is no scarring or inflammatory change in the distal esophagus and it appears quite benign. Stomach - generally normal mucosa in the cardia, fundus, body and antrum. The rugal folds are quite plentiful with slight patchy erythema, but no erosions, blood, ulcer or deformity. In the antrum, there is some granular erythema for a few centimeters just proximal to the pylorus. There is no true deformity or ulcer. Biopsies were obtained of this erythema. A CLOtest was taken from the gastric body. Duodenum - the bulb has somewhat redundant folds and prominent motility at the apex, but no ulcer or stenosis. The scope passes easily to the second and then third portion of the duodenum, which appears normal. During withdrawal, no abnormalities were noted. This included retroflex views in the fundus and of the cardia. IMPRESSION: 1. Small hiatal hernia. 2. Mild prepyloric gastritis - probably corresponds to aspirin and/or NSAID use in low dose. It does not appear to be as significant cause for pain. 3. Abdominal pain - improving spontaneously. It is noted that there were bowel habit changes extending over several weeks with this. Digital rectal at the end of the exam did disclose soft nodular stool in the rectum appearing normal and submitted for Hemoccult. [id number]/[facility] #: [id number] [facility]
[2017-12-24] MEDS: Heparin VIAL(*) 5000 UNITS/ML VIAL (FIVE THOUSAND) SUBCUT SCH ×2 (05:28→14:14)
[2017-12-24] MEDS: Omeprazole CAP* 20 MG PO SCH (08:17)
[2017-12-24] MEDS: PARoxetine HCL TAB* 10 MG PO SCH (09:02)
[2017-12-24] MEDS: Atorvastatin* 40 MG TAB PO SCH (09:03)
[2017-12-24] MEDS: Baclofen TAB* 10 MG PO SCH (09:03)
[2017-12-24] MEDS: cloNIDine TAB* 0.1 MG PO SCH (09:04)
[2017-12-24] MEDS: Aspirin 81 mg CHEW TAB* 81 MG TAB.CHEW PO SCH (09:04)
[2017-12-24] MEDS: Metoprolol Tartrate TAB* 25 MG PO SCH (09:05)
[2017-12-24 11:56] VITALS: BP 141/82
[2017-12-24] MEDS: Nicotine Inhaler* 10 MG AMP INH PRN (14:11)
[2017-12-24] MEDS: Mouth Piece, Nicotine* 1 EACH CARTRIDGE INH PRN (14:13)
--- NOTE | 2017-12-24 14:45 | DCNOTE ---
Subjective Date of Service: 12/24/17 Objective Active Medications: Aspirin (Aspirin 81 Mg Chew Tab*) 81 mg PO DAILY [facility] Last Admin: 12/24/17 09:04 Dose: 81 mg Atorvastatin Calcium (Lipitor*) 40 mg PO DAILY [facility] Last Admin: 12/24/17 09:03 Dose: 40 mg Baclofen (Lioresal Tab*) 10 mg PO BID [facility] Last Admin: 12/24/17 09:03 Dose: 10 mg Clonidine HCl (Catapres Tab*) 0.2 mg PO BEDTIME [facility] Last Admin: 12/23/17 21:05 Dose: 0.2 mg Clonidine HCl (Catapres Tab*) 0.1 mg PO DAILY [facility] Last Admin: 12/24/17 09:04 Dose: 0.1 mg Device (Nicotine Mouth Piece*) 1 each INH .USE WITH NICOTROL PRN PRN Reason: CRAVING Last Admin: 12/24/17 14:13 Dose: 1 each Device (Nicotine Mouth Piece*) 1 each INH .USE WITH NICOTROL PRN PRN Reason: CRAVING Heparin Sodium (Porcine) (Heparin Vial(*)) 5,000 units SUBCUT Q8HR [facility] Last Admin: 12/24/17 14:14 Dose: 5,000 units Meclizine HCl (Antivert Tab*) 50 mg PO TID PRN PRN Reason: DIZZINESS Metoprolol Tartrate (Lopressor Tab*) 12.5 mg PO BID [facility] Last Admin: 12/24/17 09:05 Dose: 12.5 mg Nicotine (Nicotine Inhaler*) 10 mg INH Q2H PRN PRN Reason: CRAVING Last Admin: 12/24/17 14:11 Dose: 10 mg Nitroglycerin (Nitroglycerin Tab 0.4 Mg*) 0.4 mg SL Q5M PRN PRN Reason: PAIN - CHEST Omeprazole (Prilosec Cap*) 40 mg PO DAILY@0730 [facility] Last Admin: 12/24/17 08:17 Dose: 40 mg Paroxetine HCl (Paxil Tab*) 20 mg PO DAILY [facility] Last Admin: 12/24/17 09:02 Dose: 20 mg Sucralfate (Carafate*) 1 gm PO TID [facility] Vital Signs - 8 hr 12/24/17 12/24/17 12/24/17 07:24 08:00 09:40 Temperature 98.7 F Pulse Rate 64 65 Respiratory 18 18 Rate Blood Pressure 147/77 (mmHg) O2 Sat by Pulse 100 98 Oximetry 12/24/17 11:01 Temperature 98.8 F Pulse Rate 62 Respiratory 18 Rate Blood Pressure 141/82 (mmHg) O2 Sat by Pulse 98 Oximetry Oxygen Devices in Use Now: None Result Diagrams: 12/23/17 06:14 12/23/17 06:14 Microbiology and Other Data: Microbiology 12/23/17 17:58 CLOtest - Final Gastric Antrum 12/23/17 21:55 Stool Gross Appearance - Final Stool C. difficile DNA Amplification - Final 027 Presumptive NEGATIVE Toxigenic C.diff NEGATIVE 12/23/17 21:55 Stool Gross Appearance - Final Stool 12/23/17 21:55 Stool Occult Blood (FARTUN) - Final Stool 12/23/17 17:00 Stool Occult Blood (FARTUN) - Final Stool Assess/Plan/Problems-Billing Assessment: Mr. Bejarano is a 57-year-old male with the past medical history of nonobstructive coronary artery disease, Tourette's syndrome, hyperlipidemia, hyperglycemia, hypertension, and current tobacco abuse, who presented to the emergency department today with complaints of abdominal pain for 3 weeks and who had an episode of CP in the ER, - Patient Problems (1) Abdominal pain Comment: - unclear etiology. CT abdomen with contrast unremarkable - with some noted moderate gastric distention w/o thickening. - GI consult pendng - possible endoscopy today? NPO (2) Chest pain Comment: -resolved - chronic angina at baseline - hx of nonobstructive CAD - chronic angina at baseline - c/o in ER of CP with HTN epsiode. 4 flat troponins, no EKG changes. Stress test last year low risk. Will schedule outpt stress test. - continue ASA, lipitor, BB (3) HTN (hypertension) Comment: - controlled on home meds. continue Metoprolol, clonidine (4) DVT prophylaxis Comment: HSQ Status and Disposition: OBV. GI consult pending - possible endoscopy today
--- NOTE | 2017-12-24 15:42 | CONS ---
GASTROENTEROLOGY CONSULT: DATE: 12/23/17 CONSULTING PRACTITIONER: Patricia Mcfarlane NP REASON FOR CONSULT: Lower abdominal pain. 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 Three to 4 weeks ago, he began having lower abdominal discomfort and said he wondered if it was an ulcer or another hernia. He has had pain in the lower abdomen before (see 2012 admission for partial small bowel obstruction). Later when questioned about his ulcer, said that it was ulcerative colitis treated in the at [facility]. He was not having diarrhea or rectal bleeding. No further details are available. At any rate, he went to see his primary physician 3 to 4 weeks ago and was sent for an outpatient CT scan. He was placed on an antibiotic and after 2 days said that he began having diarrhea, so he stopped the antibiotic. He then was better for a short period of time and then went back to his primary physician on 12/22/17 and had lower abdominal tenderness, especially right-sided. He was sent to the emergency room where labs were generally normal with white count 8.1 , hemoglobin 13.8, CRP 1.35. He nonetheless had very impressive sensitivity and pain in the right lower quadrant and was admitted for observation. He has not had any vomiting, dysphagia, or fever. He says in general over recent weeks to months, he has had a normal diet and no change in his weight. 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 He then describes his bowel pattern can be daily or he might go every other day and when he gets to every third day, then he becomes concerned. He had an admission here in 2012 where he was said radiographically to have a partial small bowel obstruction and yet was passing gas and stool regularly. PAST MEDICAL HISTORY: 1. Smoking. 2. Coronary artery disease - cardiac cath, 2012, showed diffuse disease, but no critical stenoses. 3. GERD. 4. History of drug abuse - using opiates until 1981. 5. Alcohol abuse - he says his "picked me out of the gutter" in 1989 and he quit drinking then and has been much better. 6. Tourette's syndrome - history not explored. 7. Inguinal hernia repair, Dr. Lomeli, 2015 - right side. MEDICATIONS: As an outpatient: 1. Lipitor 40. 2. Prilosec 40. 3. Aspirin 81. 4. Metoprolol 12.5 b.i.d. 5. Baclofen 10 b.i.d. 6. Clonidine a.m. 0.1 and h.s. 0.2. 7. Paxil 20. ALLERGIES: Listed to ASPIRIN and IBUPROFEN irritating the stomach, and he lists several FRUIT-CONTAINING FOODS. FAMILY HISTORY: His father had coronary artery disease and mother breast cancer. There is no history of ulcerative colitis in the family. 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 He remains 25 years later. REVIEW OF SYSTEMS: His old labs show serologies for Lyme disease in February 2016; Babesia antibodies, February 2016; hepatitis A, B and C studies, November 2012 negative; positive mumps, rubella and rubeola, December 2011; normal iron panel, May of 2015, iron 90, TIBC 388, saturation 23%, ferritin 34.9; normal LFTs; B12 of 208, May 2015; and hs-CRP values from March 2012 until now all normal. There is no history of actual VA, syncope, palpitations, hemoptysis , TB, acute hepatitis, or abdominal surgery. His last bowel movement was 2 days ago and said it was "coming out like chunks." PHYSICAL EXAM: He is a somewhat unkempt-appearing man with untrimmed hair and gerardo growth. He is anicteric. He is comfortable in bed with his assisting in the history. HEENT exam is unremarkable. He is afebrile. He has no adenopathy. Lungs are clear and heart sounds are normal. The abdomen is symmetric, scaphoid with normal bowel sounds and soft and nontender. He is quite comfortable and there is no resistance or tenderness whatsoever. He had told the nurses that he was hungry. IMPRESSION: This 57-year-old man appears to have a constipation-predominant irritable bowel syndrome pattern in the past. He lists sensitivity to fruit, which is probably on the basis of fructose and fermentation. In this setting, multiple short-term transient influences are likely to cause pain that is difficult to interpret. At this time, he appears stable and to be doing quite well. Obviously, his appetite is a positive sign. His having the impression of partial small bowel obstruction 6 years ago during an admission could be a clue to a metabolic problem, but the transience of that event as with current symptoms is against that and the answer appears to be just irritable bowel syndrome with superimposed supplemented issues. Given a longstanding history of gastroesophageal reflux disease and the vagueness of these complaints and his being unsure as to whether he really had an ulcer or ulcerative colitis, upper endoscopy will be useful for further symptom interpretation. [id number]/[facility] #: [id number] [facility]
[2017-12-24] MEDS ORDERED: Sucralfate TAB* 1 GM PO SCH (21:00)
--- NOTE | 2017-12-25 09:08 | DS ---
DISCHARGE SUMMARY: DATE OF ADMISSION: 12/22/17 DATE OF DISCHARGE: 12/24/17 PROVIDER: Mateo Villalpando NP ATTENDING PHYSICIAN: Dr. Del Cid * (report dictated by Mateo Villalpando NP) PRIMARY CARE PROVIDER: Kurtis Iyer MD REFERRAL TO: Head Of Commission Department, Dr. Zavala DISCHARGE DIAGNOSES: 1. Abdominal pain, unclear etiology, resolved. 2. Heme-positive stool for occult blood. 3. Chest pain, acute coronary syndrome ruled out. 4. Chronic angina at the baseline. 5. Tobacco abuse. 6. Nonobstructive coronary artery disease. 7. Tourette's syndrome. 8. Hyperlipidemia. 9. Hypertension. DISCHARGE MEDICATIONS: 1. Atorvastatin 40 mg p.o. daily. 2. Nitroglycerin 0.4 mg sublingual q.5 minutes p.r.n. 3. Antivert 50 mg p.o. t.i.d. p.r.n. 4. Omeprazole 40 mg p.o. daily. 5. Aspirin 81 mg p.o. daily. 6. Paxil 20 mg p.o. daily. 7. Metoprolol tartrate 12.5 mg p.o. b.i.d. 8. Baclofen 10 mg p.o. b.i.d. 9. Clonidine 0.2 mg p.o. at bedtime. 10. Clonidine 0.1 mg p.o. daily. 11. Carafate 1 g p.o. t.i.d. new medication. HISTORY OF PRESENT ILLNESS AND HOSPITAL COURSE: Please see history and physical by this author for full admission details, but in summary this is a 57- year-old male with a past medical history as stated above who presented to the emergency department with concerns for abdominal pain, reporting approximately 3 weeks ago, he developed acute abdominal pain for which he saw his primary care provider, was sent for a CAT scan of the abdomen which was suggestive of inflammatory versus infectious enteritis and he was started on Cipro and Flagyl. The patient reports after 2 to 3 days on the antibiotics, he developed significant diarrhea and stopped the antibiotics 3 days after he started them. He reports he continues to have abdominal discomfort and diarrhea up until approximately 2 days prior to coming to the hospital on 12/22/17. Prior to coming in the hospital, he was seen by his primary care provider still continue to complain of abdominal pain, was sent to the emergency department for further evaluation. In the emergency department, he had no noted leukocytosis and other labs were unremarkable. The patient was going to be discharged home, when he became very agitated, developed hypertension, then complained of chest pain and Hospital Medicine is asked to evaluate him for admission. On my evaluation to the emergency department of the patient, the patient then reported having some chest pain, however, states that he has this chronically at his baseline especially when he gets upset and was very insistent the only reason why he was in the emergency department was for his abdominal pain. On evaluation of his abdomen, he was noted to be very tender in the right lower and left lower quad with guarding with a soft abdomen which is nondistended. Normal bowel sounds, however, due to this concern, I asked kier drier, Dr. Aguilar to evaluate the patient. On Dr. Zavala's evaluation of the patient, the patient's abdominal pain had resolved. The patient was scheduled for an upper endoscopy which did show a small hiatal hernia, mild prepyloric gastritis which was thought to probably correspond with aspirin or NSAID use. Again, it was also noted during his examination that the patient's abdominal pain had resolved. A digital rectal exam was performed and stool for Hemoccult was sent which was positive. Please note on admission, he had a Hemoccult which was negative. This was discovered today on the day of discharge. I discussed with kier drier, Dr. Elsa Arriaga. Due to the patient does not have any further abdominal pain, has no melena or bloody stools and his hemoglobin is stable and at the baseline with no noted abnormal renal function, the patient is safe for discharge to home with follow up with Dr. Aguilar as an outpatient and will most likely require colonoscopy as an outpatient. The patient agrees with this plan. The patient was instructed if he has any noted bloody or melenic stools or increase in abdominal pain to return to the emergency department. The patient will be sent home on Carafate as he had a dose of this in the hospital which made him feel better. In regards to the patient's chest pain, he was monitored on telemetry with 4 flat troponins and no EKG changes. Although, I suspect this is secondary to anxiety versus chronic angina. The patient underwent a cardiac nuclear stress test approximately a year ago which placed him at low risk. The patient should undergo a cardiac nuclear stress test as an outpatient. The patient was strongly encouraged to quit smoking. The patient states he does not want to quit at this time. He appeared refusing nicotine replacement at discharge. The patient state for discharge home. He has been ambulating around this room today. Tolerating his diet with no abdominal pain. Please note that the patient did have a repeat abdomen and pelvis CT with contrast on admission which showed impression: "Moderate gastric distention with mural thickening or other CT abnormality of the stomach. Normal appendix documented. Mild colonic diverticulosis without findings of acute diverticulitis. Negative for obstructive uropathy. Negative for lymphadenopathy. It is possible the patient did have an infectious enteritis due to the amount of diarrhea, he was having for approximately 10 to 14 days, it is possible that the abdominal pain was secondary to the enteritis and now is resolved. Unclear etiology though of his abdominal pain." DISCHARGE PLAN: Followup with primary care provider, Dr. Iyer, 12/25/[address] Zavala's office will call the patient for a followup appointment and will most likely need a colonoscopy as an outpatient. The patient should undergo an outpatient cardiac nuclear stress test. The patient was instructed if he has any further worsening or concerning symptoms to return to the emergency department. Continue to encourage smoking cessation. TIME SPENT: Approximately 60 minutes was spent on this discharge. MATEO VILLALPANDO NP [id number]/[facility] #: [id number] SOFY
== END 2017-12-24 15:30 | disposition home or self-care (01) ==
LOC: ED 11:12 → MEDTELE 16:07
PROVIDERS: ADMIT Internal Medicine; ATTEND Internal Medicine
DX: R10.9 Unspecified abdominal pain (principal); K92.1 Melena; R07.9 Chest pain, unspecified; F95.2 Tourette's disorder; E78.5 Hyperlipidemia, unspecified; Z79.82 Long term (current) use of aspirin; I10 Essential (primary) hypertension; I25.10 Atherosclerotic heart disease of native coronary artery without angina pectoris; F17.210 Nicotine dependence, cigarettes, uncomplicated
CPT/HCPCS: 36415; 71045; 74177; 80048; 80053; 81003; 82270; 82272; 83605; 83735; 84443; 84484; 85025; 85610; 85730; 86140; 87045; 87046; 87077; 87338; 87493; 87899; 88305; 88342; 93005; 96374; 96375; 96376; 99156; 99157; 99285; A9270-GY; G0378; J1644; J2250; J2270; J2405; J3010; Q9967

== ENCOUNTER 2018-04-16 08:09 | Emergency (ER) | payer BC ==
[2018-04-16] MEDS ORDERED: NS 0.9% 1000 ML** 1,000 ML IV ONE (08:14)
--- NOTE | 2018-04-16 08:16 | ED ---
HPI Chest Pain - HPI Summary HPI Summary: Dr. Ashford met EMS and patient at 0808 upon arrival and proceeded to room 14 with EMS concern for possible STEMI. A 57 y/o M brought in by ambulance presents to ED with ongoing mild CP for the past week (rated as 1/2 out of 10), which jumped to an 8 out of 10 at 0700 this date. The CP is radiating to his L armpit. Pert PMHx: OR in 2011, treated at [facility]. He did not have any stents put in at that time, he thinks he had a 30% blockage. Associated sx: racing palpitations, SOB, cough. Denies fever, recent falls. His PCP is Dr. Iyer. He also sess Dr. Espinoza, cardio and Dr. Correa , neuro. PMHx: Tourette's, hypoglycemic, U. colitis. Denies DM. Smoker. Rarely drinks ETOH. No substances since 1981. FHx: cardiac dz on paternal side and CA on maternal side. Medications include: Clonidine, Baclofen, Metoprolol, Lipitor , Omeprazole, Paxil, daily aspirin, amlodipine besylate. As well as Nitro and Oxycodone and Meclizine as needed. 0807: Consulted with Dr Delgadillo, cardio interventionalist, EKG was received from the [facility], reviewed with Dr. Delgadillo, who agreed it's non- diagnostic for a STEMI. 0822: Consulted with Dr Delgadillo Reviewed [facility] EKG together and agreed that it is non-diagnostic for a STEMI. Vitals in room: HR: 82 bpm; BP: 149/78. Home Medications Medication Instructions Recorded Confirmed Type Baclofen TAB* [Lioresal TAB*] 10 mg PO BID 01/30/12 04/16/18 History PARoxetine HCL TAB* [Paxil TAB*] 20 mg PO DAILY 01/30/12 04/16/18 History Aspirin 81 mg CHEW TAB* 81 mg PO DAILY 05/11/12 04/16/18 History Metoprolol Tartrate TAB* 12.5 mg PO BID 05/11/12 04/16/18 History [Lopressor TAB*] Omeprazole CAP (NF) [Prilosec CAP* 40 mg PO DAILY 05/31/13 04/16/18 History 20 MG] Nitroglycerin TAB 0.4 MG* 0.4 mg SL Q5M PRN 07/05/13 04/16/18 History cloNIDine TAB* [Catapres 0.1 MG 0.1 mg PO BID 07/01/14 04/16/18 History TAB*] Meclizine TAB* [Antivert 12.5 TAB*] 50 mg PO TID PRN 12/17/16 04/16/18 History Atorvastatin* [Lipitor 40 MG*] 40 mg PO DAILY 12/22/17 04/16/18 History cloNIDine TAB* [Catapres 0.1 MG 0.2 mg PO BEDTIME 12/22/17 04/16/18 History TAB*] Albuterol inh POWDER (NF) [Proair 2 puff INH Q4H PRN 01/30/18 04/16/18 History Respiclick] Amlodipine 2.5 mg tab 2.5 mg PO DAILY 04/16/18 04/16/18 History Sucralfate [Carafate] 1 gm PO TID 04/16/18 04/16/18 History - History of Current Complaint Hx Obtained From: Patient, EMS Onset/Duration: Started Hours Ago - worsened, Started Days Ago, Atraumatic, Still Present Timing: Constant Initial Severity: Mild Current Severity: Severe Pain Intensity: 8 - at 0700 Pain Scale Used: 0-10 Numeric Chest Pain Location: Left Anterior, Left Lateral Chest Pain Radiates: Yes Chest Pain Radiates To:: Other - L armpit Character: Dull/Aching, Sharp/Stabbing Aggravating Factor(s): Nothing Alleviating Factor(s): Nothing Associated Signs and Symptoms: Positive: Shortness of Breath, Palpitations - racing, Cough. Negative: Fever, Other: - neg: recent falls - Additional Pertinent History Primary Care Physician: [id number] - Allergy/Home Medications Allergies/Adverse Reactions: Allergies Allergy/AdvReac Type Severity Reaction Status Date / Time orange juice Allergy Severe Anaphylatic Verified 01/30/18 13:08 Shock aspirin Allergy Intermediate GI Upset Verified 01/30/18 13:08 ibuprofen Allergy Intermediate GI Upset Verified 01/30/18 13:08 latex Allergy Intermediate Rash Verified 01/30/18 13:08 ciprofloxacin [From Cipro] Allergy Unknown Verified 02/23/18 15:07 Reaction Details codeine Allergy Unknown Verified 02/23/18 15:06 Reaction Details metronidazole [From Flagyl] Allergy Unknown Verified 02/23/18 15:07 Reaction Details apple juice Allergy Severe Anaphylatic Uncoded 01/30/18 13:08 Shock raw fruits Allergy Severe Anaphylatic Uncoded 01/30/18 13:08 Shock 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, prefers not to take Home Medications: Home Medications Amlodipine 2.5 mg tab 2.5 mg PO DAILY 04/16/18 [History Confirmed 04/16/18] Sucralfate [Carafate] 1 gm PO TID 04/16/18 [History Confirmed 04/16/18] PMH/Surg Hx/FS Hx/Imm Hx Previously Healthy: No Endocrine/Hematology History: Reports: Hx Anticoagulant Therapy - ASA, Other Endocrine/Hematological Disorders - Hypoglycemia Denies: Hx Blood Disorders, Hx Bone Marrow Disease, Hx Diabetes, Hx Systemic Lupus Erythematosus, Hx Sickle Cell Disease, Hx Thyroid Disease, Hx Anemia, Hx Unexplained Bleeding Cardiovascular History: Reports: Hx Angina, Hx Coronary Artery Disease - stents placed - 2011, Hx Hypercholesterolemia, Hx Hypertension, Hx Myocardial Infarction Denies: Hx Aneurysm, Hx Angioplasty, Hx Auto Implanted Cardiovert Defib, Hx Cardiac Arrest, Hx Cardiomegaly, Hx Congenital Heart Disease, Hx Congestive Heart Failure, Hx Deep Vein Thrombosis, Hx Hypotension, Hx Pacemaker/ICD, Hx Peripheral Vascular Disease, Hx Rheumatic Fever, Hx Syncope, Hx Valvular Heart Disease Comment Only: Other Cardiovascular Problems/Disorders - FOLLOWED BY DR ESPINOZA Respiratory History: Reports: Hx Chronic Bronchitis, Hx Chronic Obstructive Pulmonary Disease (COPD), Other Respiratory Problems/Disorders - current smoker Denies: Hx Asthma, Hx Cystic Fibrosis, Hx Lung Cancer, Hx Pleural Effusion, Hx Pneumonia, Hx Pulmonary Edema, Hx Pulmonary Embolism, Hx Seasonal Allergies, Hx Sleep Apnea GI History: Reports: Hx Gastroesophageal Reflux Disease - ON DAILY OMEPRAZOLE, Hx Gastrointestinal Bleed, Other GI Disorders - Hx OF ULCERATIVE COLITIS Denies: Hx Cirrhosis, Hx Crohn's Disease, Hx Diverticulosis, Hx Gall Bladder Disease, Hx Hiatal Hernia, Hx Irritable Bowel, Hx Jaundice, Hx Obstructive Bowel , Hx Ileostomy, Hx Pyloric Stenosis, Hx Ulcer History: Denies: Hx Renal Disease Musculoskeletal History: Reports: Hx Arthritis - RIGHT HAND, Hx Orthopedic Injury - R hand, L foot, Hx Tendonitis - BOTH ARMS, Other Musculoskeletal History - L foot drop toe surgery; carpal tunnel relase R hand Sensory History: Reports: Hx Contacts or Glasses, Hx Vision Problem Denies: Hx Hearing Aid Opthamlomology History: Reports: Hx Contacts or Glasses, Hx Vision Problem Neurological History: Reports: Other Neuro Impairments/Disorders - TOURETTE'S SYNDROME, ON DAILY MEDS Denies: Hx Seizures Psychiatric History: Reports: Other Psychiatric Issues/Disorders - Tourette's Denies: Hx Substance Abuse - Surgical History Surgery Procedure, Year, and Place: 1998 LEFT FOOT [facility]. 2012 CARDIAC CATH [facility] Hx Anesthesia Reactions: No - Immunization History Date of Tetanus Vaccine: Unknown Date of Influenza Vaccine: None, doesn't get the flu vaccine Infectious Disease History: Denies: Hx Clostridium Difficile, Hx Hepatitis, Hx Human Immunodeficiency Virus (HIV), Hx of Known/Suspected MRSA, Hx Shingles, Hx Tuberculosis, History Other Infectious Disease - Family History Known Family History: Positive: Cardiac Disease - paternal, Other - CA - maternal - Social History Occupation: Employed Full-time Lives: With Family Alcohol Use: None Alcohol Amount: former alcoholic Hx Substance Use: Yes - not currently Substance Use Type: Reports: None Substance Use Comment - Amount & Last Used: Former drug user Hx Tobacco Use: Yes Smoking Status (MU): Heavy Every Day Tobacco Smoker Type: Cigarettes Amount Used/How Often: CURRENT 1/2PPD; PAST 3PPD; HAS SMOKED 42 YRS Length of Time of Smoking/Using Tobacco: 42 YEARS Have You Smoked in the Last Year: Yes Review of Systems Negative: Fever Positive: Palpitations - racing, Chest Pain Positive: Shortness Of Breath, Cough Gastrointestinal: Negative Positive: no symptoms reported Musculoskeletal: Other - pos: pain in L armpit radiating from CP Neurological: Negative Psychological: Normal All Other Systems Reviewed And Are Negative: Yes Physical Exam - Summary Physical Exam Summary: Appearance: Ill-appearing, moderate pain distress, well-nourished Skin: Warm, color reflects adequate perfusion, dry Head: Normal Head/Face inspection, atraumatic Eyes: Conjunctiva clear ENT: Normal inspection Dental: poor dentition Neck: Supple, no nodes, no JVD Respiratory: Lungs clear, normal breath sounds, no respiratory distress Cardio: RRR, No murmur, pulses normal, brisk capillary refill. Reproducible L lateral CP (patient states that is not the CP hes feeling since 0700) Abdomen: Soft, tenderness to epigastrium, no guarding, no rebound. Bowel sounds: Present Musculoskeletal: Strength Intact/ROM intact, no calf tenderness, no edema. Reproducible L lateral CP (patient states that is not the CP hes feeling since 0700) Psychological: Normal Neuro: Alert, muscle tone normal, no focal deficit Triage Information Reviewed: Yes Vital Signs Reviewed: Yes Diagnostics - Laboratory Result Diagrams: 04/16/18 08:15 04/16/18 09:43 Lab Statement: Any lab studies that have been ordered have been reviewed, and results considered in the medical decision making process. - Radiology CXR Radiology Interpretation Completed By: Radiologist Summary of Radiographic Findings: IMPRESSION: THE LUNGS ARE UNDERINFLATED, THERE IS A SMALL INFILTRATE AT THE LEFT LUNG BASE SUGGESTIVE OF ATELECTASIS. ED provider has reviewed this report. - EKG 0809 Cardiac Rate: NL - 80 bpm EKG Rhythm: Sinus Rhythm Ectopy: None EKG Comparison: No Significant Change - compared to EKG on 12/22/17. Summary of EKG Findings: An EKG at 0809 reveals NSR at 80bpm with nml NENA CT, nml QTc, and nml axis. Q-waves in II, III, avF, V4-V6. There is 0.5mm ST elevation in II, III, avF, V4-V6. Discussed EKG with Dr. Delgadillo. Re-Evaluation - Re-Evaluation 1 Re-Evaluation Time: 13:40 Change: Improved Comment: Pt is not having CP nor SOB. Discussing plans for discharge with him, pt is agreeable to this plan. Chest Pain Course/Dx - Course Course Of Treatment: Pt is a 57 y/o M presenting with ongoing mild CP for the past week (rated as 1/2 out of 10), which jumped to an 8 out of 10 at 0700 this date. The CP is radiating to his L armpit. Pert PMHx: OR in 2011, treated at [facility]. He did not have any stents put in at that time, he thinks he had a 30% blockage. Associated sx: racing palpitations, SOB, cough. Denies fever, recent falls. He sees Dr. Iyer, PCP and Dr. Espinoza, cardio and Dr. Correa, neuro. PMHx: tourettes, hypoglycemic, U. colitis. Denies DM. Smoker. Rarely drinks ETOH. No substances since 1981. FHx: cardiac dz on paternal side. Allergies noted. Pt medications reviewed this visit. The EKG at 0809 reveals NSR at 80bpm with nml NENA CT, nml QTc, and nml axis. Q-waves in II, III, avF, V4-V6. There is 0.5mm ST elevation in II, III, avF, V4-V6. Discussed EKG with Dr. Delgadillo. Lab work is unremarkable except decreased Hgb and Hct, glucose: 146 , T4: 5.14. Troponin is 0.00. Second troponin is unchanged. CXR shows "THE LUNGS ARE UNDERINFLATED, THERE IS A SMALL INFILTRATE AT THE LEFT LUNG BASE SUGGESTIVE OF ATELECTASIS.". Based on two negative troponins (0.00) and reproducible CP, and atelectasis, infiltrate of L base, will give patient oral ABX and D/C with close follow up. - Diagnoses Provider Diagnoses: Chest pain, Tobacco abuse disorder, Atelectasis of left lung Discharge - Sign-Out/Discharge Documenting (check all that apply): Patient Departure - D/C Patient Received Moderate/Deep Sedation with Procedure: No - Discharge Plan Condition: Stable Disposition: HOME Prescriptions: Azithromycin TAB* [Zithromax TAB (Z-VAN) 250 mg #6 tabs] 2 tab PO .TODAY, THEN 1 DAILY #1 van Patient Education Materials: Chest Pain (ED), Pneumonia (ED) Print Language: MARTINIQUAIS Forms: *Work Release Referrals: Kurtis Iyer MD [Primary Care Provider] - 2 Days Additional Instructions: You will need definite follow up with your doctor regarding the chest pain and the probable pneumonia on the chest xray. Return to the ER if you have any new or worsening symptoms. - Billing Disposition and Condition Condition: STABLE Disposition: Home - Attestation Statements Document Initiated by Jesseibe: Yes Documenting Scribe: Delroy Eastman Provider For Whom Janice is Documenting (Include Credential): Dr. Gabbi Ashford MD Scribe Attestation: Delroy Garcia scribed for Dr. Gabbi Ashford MD on 04/20/18 at 2222. Scribe Documentation Reviewed: Yes Provider Attestation: The documentation as recorded by the Delroy dobson accurately reflects the service I personally performed and the decisions made by me, Dr. Gabbi Ashford MD Status of Scribe Document: Viewed
[2018-04-16 08:25] LABS: ABS Basophils 0.1 10^3/ul (0-0.2); ABS Eosinophils 0.2 10^3/ul (0-0.6); ABS Lymphocytes 2.3 10^3/ul (1.0-4.8); ABS Monocytes 0.6 10^3/ul (0-0.8); ABS Neutrophils 3.4 10^3/ul (1.5-7.7); ABS Nucleated RBC 0 10^3/ul; Eosinophil % 3.7 %; Hematocrit 39 % (42-52); Mean Corpuscular HGB Conc 33 g/dl (31-36); Mean Corpuscular Hemoglobin 30 pg (27-31); Mean Corpuscular Volume 90 fL (80-94); Mean Platelet Volume 7.3 fL (7.4-10.4); Nucleated Red Blood Cells % 0.2; Platelet Count 285 10^3/ul (150-450); Red Blood Count 4.33 10^6/ul (4.00-5.40); Red Cell Distribution Width 13 % (10.5-15); White Blood Count 6.6 10^3/ul (3.5-10.8)
[2018-04-16 08:33] LABS: Activated Partial Thrombo Time 28.7 seconds (26.0-36.3); INR 0.86 (0.77-1.02)
[2018-04-16 08:44] LABS: Albumin 3.7 g/dL (3.2-5.2); Albumin/Globulin Ratio 1.4 (1-3); BUN/Creatinine Ratio 18.7 (8-20); Calcium 8.9 mg/dL (8.6-10.3); EGFR African American 129.4 (>60); Globulin 2.7 g/dL (2-4); Total Bilirubin 0.2 mg/dL (0.2-1.0); Total Protein 6.4 g/dL (6.4-8.9)
[2018-04-16 08:47] LABS: CKMB ng/mL 4.7 ng/mL (0.6-6.3)
[2018-04-16 09:20] LABS: TSH (Thyroid Stimulating Horm) 1.17 mcIU/mL (0.34-5.60)
[2018-04-16 09:59] LABS: Potassium 3.5 mmol/L (3.5-5.0)
[2018-04-16] MEDS ORDERED: Nicotine Inhaler* 10 MG AMP INH ONE (10:19)
[2018-04-16 10:42] LABS: T4, Total 5.14 mcg/dL (6.09-12.23)
[2018-04-16] MEDS ORDERED: Mouth Piece, Nicotine* 1 EACH CARTRIDGE ONE (10:50)
[2018-04-16 11:03] LABS: Potassium Redraw 3.6 mmol/L (3.5-5.0)
[2018-04-16 13:58] VITALS: BP 157/92
== END 2018-04-16 13:57 | disposition home or self-care (01) ==
LOC: ED 08:09
DX: R07.9 Chest pain, unspecified (principal); J98.11 Atelectasis; R06.02 Shortness of breath; R00.2 Palpitations; Z88.6 Allergy status to analgesic agent; Z79.01 Long term (current) use of anticoagulants; K21.9 Gastro-esophageal reflux disease without esophagitis; F17.210 Nicotine dependence, cigarettes, uncomplicated; I25.10 Atherosclerotic heart disease of native coronary artery without angina pectoris; Z95.5 Presence of coronary angioplasty implant and graft; J44.9 Chronic obstructive pulmonary disease, unspecified
CPT/HCPCS: 36415; 71045; 80053; 82550; 82553; 83605; 83735; 83880; 84436; 84443; 84484; 85025; 85379; 85610; 85730; 93005; 96360; 99283; A9270-GY

== ENCOUNTER 2018-05-22 08:42 | Emergency (ER) | payer BC ==
[2018-05-22] MEDS ORDERED: Aspirin 81 mg CHEW TAB* 81 MG TAB.CHEW PO ONE (08:54)
[2018-05-22] MEDS ORDERED: Nitroglycerin TAB 0.4 MG* 0.4 MG TAB SL ONE (08:54)
--- OUTSIDE RECORDS SUMMARY | 2018-05-22 09:04 | XMS REPORT | Continuity of Care Document ---
:1960 External Reference #:[id number] Author Name Dilcia El Care Team Providers Name Role Phone Kurtis Iyer MD Primary Care Physician Unavailable Payers Date Identification Numbers Payment Provider Subscriber Policy Number: [id number] [facility] Derrick Bejarano PayID: [id number] [address] [address] [place] [address] Advance Directives Description No Information Available Problems Date Description Provider Status Onset: 05/18/2012 Benign essential hypertension Mayur Espinoza M.D. Active Onset: 05/18/2012 Coronary arteriosclerosis Mayur Espinoza M.D. Active Onset: 06/03/2013 Chest pain Mayur Espinoza M.D. Active Note: many workups - ETT planned April 2018 Onset: 06/03/2013 Juan David de la Tourette's syndrome Mayur Espinoza M.D. Active Onset: 06/03/2013 Tobacco user Mayur Espinoza M.D. Active Onset: 06/03/2013 Pure hypercholesterolemia Mayur Espinoza M.D. Active Onset: 07/12/2013 Closed fracture of lumbar vertebra Peewee Person M.D. Active without spinal cord injury Onset: 12/22/2017 Abdominal pain Patricia Mcfarlane NP Active Onset: 12/22/2017 Anemia Patricia Mcfarlane NP Active Onset: 04/23/2010 Chronic obstructive lung disease Ernie Zavala MD Active Note: 19 CXRs done from fall 2011 to 04/16/18 with last CXR showing LLL atelectasis and underinflation; Onset: 05/18/2012 Dyspnea Mayur Espinoza M.D. Resolved Resolved: 04/23/2018 Family History Date Family Member(s) Observation Comments General Breast Cancer General Heart Disease General Alcoholism Father due to r/t CAD at () 82 yo-had 3 stents, 5 [place]'s Mother due to Cancer, Breast () Mother due to ulcers () Mother due to sepsis () secondary to ruptured appendex Siblings 2 2 siblings alive but unknown medical issues, estranged Paternal Grandmother due to Heart Disease () Paternal Grandmother due to mental illness () Maternal Grandfather due to Cancer, () Prostate Maternal Grandfather due to Etoh abuse () Social History Type Date Description Comments Sex Unknown Marital Status 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 Tobacco Use Start: Unknown current cigarette smoked 35 yrs 1/2 smoker pk daily 2014 ETOH Use Etoh abuse in the past stopped in 1989 ETOH Use Occasionally consumes 03/10-admits to alcohol increase of alcohol to twice a month takes a double shot of whiskey to sleep Recreational Drug Use 1981 Former Drug User coke ,pot , speed Tobacco Use Start: Unknown Patient is a current 1/2 pack per day smoker, smokes every day Smoking Status Reviewed: 05/04/18 Patient is a current 1/2 pack per day smoker, smokes every day Enjoy Exercising Does not enjoy exercising Exercise Type/Frequency Exercises regularly Work activities Approx 6.5 miles in walking daily. Allergies, Adverse Reactions, Alerts Date Description Reaction Status Severity Comments 10/03/2009 Aspirin GI intolerence Active 10/03/2009 Codeine Active 07/12/2013 Latex Active 01/28/2018 Cipro Active 01/28/2018 Flagyl Active Medications Medication Date Status Form Strength Qnty SIG Indications Ordering Provider Amlodipine 04/22/19 Active Tablets 5mg 90tab 1 by mouth I10 Rupal S. Besylate 19 s every day Gato, N.P. Clonidine HCL 02/14/20 Active Tablets 0.1mg 90tab 2 by mouth F95.2 Peewee S. 16 s every morning Sinclair, and 1 every M.D. evening Nitrostat 10/19/19 Active Tablets 0.4mg 25tab one sl q5 min Mayur 15 Sub s up to 3 doses F. as needed Glynn Espinoza Oxycodone-Shin 08/24/19 Active Tablets 5-325mg 60tab 1 po Q6h prn 805.4 Peewee taminophen 14 s pain Glynn Person Atorvastatin 06/04/19 Active Tablets 40mg 30tab 1 by mouth Mayur Calcium 13 s every day FYamini (decreased Mauser, 08/26/16) Glynn Metoprolol 05/19/19 Active Tablets 25mg 90tab 1/2 by mouth Mayur Tartrate 13 s twice a day Nancy Espinoza M.D. Aspirin Adult 05/19/19 Active Chewtabs 81mg 1 tab po Mayur Low Strength 13 daily FYamini Espinoza M.D. Baclofen Active Tablets 10mg 60tab 1 by mouth Peewee S. 00 s twice a day Glynn Correa Omeprazole Active Capsules 40mg 30cap 1 by mouth Other 00 DR s every day Ordering Provider Meclizine HCL Active Tablets 50mg 1 tablet Unknown 00 daily as needed Paroxetine Active Tablets 20mg 1 by mouth Unknown HCL 00 every day Suprep Bowel 02/03/20 Hx Solution 17.5-3.13 354un Take Ernie Simpson Prep Kit 18 - -1.6G/ its according to Lucas, 03/09/19 7ML your [facility] physician's instructions the day before your procedure. Split the dose as directed. Nitrolingual 09/08/19 Hx Solution 0.4mg/Spr 1unit 2 sprays prn Mayur Pumpspray 13 - ay s F. 02/13/20 Olga, 16 M.D. Nitro-Dur 08/12/19 Hx Patches 0.2mg/HR 30uni 1 patch qd Mayur 13 - 24HR ts F. 01/13/20 Olga 14 on in the am, M.D. off in the pm prn Atorvastatin 05/19/19 Hx Tablets 20mg 100ta 1 po qd Mayur Calcium 13 - bs F. 06/04/19 Olga, 13 M.DYamini Paroxetine 05/10/19 Hx Tablets 10mg 60tab 2 tab by Peewee Martinez. HCL 11 - s mouth every Sunny, 02/24/19 day (pt is M.D. 19 taking 1-20mg tab daily 09/03/16) Aspirin Ec Hx Tablets 81mg 1 po qd Unknown 00 - DR 10/07/19 10 Nicotrol Hx Inhaler 10mg 42uni 1 puff over Unknown Inhaler 00 - ts 20 min each/ 09/21/19 ES 14 Hydrocodone/A Hx Tablets 7.5-325mg 50tab 1 tab qid prn Unknown cetaminophen 00 - s Unknown Tizanidine Hx Tablets 4mg 30tab take one Unknown HCL 00 - s tablet by Unknown mouth three times daily as needed Sucralfate Hx Tablets 1gm 60tab 1 by mouth Unknown 00 - s four times a 10/18/19 day as needed 15 Oxycodone-Shin Hx Tablets 5-325mg 80tab take 1 Unknown taminophen 00 - s tabletby 08/24/19 mouth every 14 4-6 hours as needed pain Clonidine HCL Hx Tablets 0.1mg 60tab Take One Peewee S. 00 - s Tablet By Sunny, 02/14/20 Mouth Twice A M.D. 16 Day Minocycline Hx Capsules 50mg take two Unknown HCL 00 - capsules by 01/28/20 mouth two 18 times daily.. Spiriva Hx Capsules 18mcg 1 unit Unknown Handihaler 00 - inhalation 02/25/19 daily 19 Proair HFA Hx Aerosol 108(90Bas 2 puffs by Unknown 00 - e) mouth every 4 02/25/19 mcg/Act hours as 19 needed Amlodipine Hx Tablets 2.5mg 90tab 1 by mouth Mayur Besylate 00 - s every day F. 04/22/19 Can Espinoza M.D. Immunizations Description No Information Available Vital Signs Date Vital Result Comment 05/04/2018 8:53am Height 62.5 inches 5'2.50" Weight 140.00 lb Heart Rate 66 /min BP Systolic 122 mmHg BP Diastolic 84 mmHg BMI (Body Mass Index) 25.2 kg/m2 04/23/2018 9:34am Height 62.5 inches 5'2.50" Weight 143.00 lb Heart Rate 60 /min BP Systolic Sitting 131 mmHg reg adult cuff left arm BP Diastolic Sitting 78 mmHg reg adult cuff left arm O2 % BldC Oximetry 100 % at rest on room air BMI (Body Mass Index) 25.7 kg/m2 04/22/2018 9:54am Heart Rate 60 /min BP Systolic 170 mmHg sitting reg cuff ule BP Diastolic 102 mmHg sitting reg cuff ule BP Systolic Sitting 162 mmHg ure sitting BP Diastolic Sitting 100 mmHg ure sitting BP Systolic Standing 152 mmHg ule standing BP Diastolic Standing 84 mmHg ule standing 04/08/2018 9:08am Heart Rate 68 /min BP Systolic Sitting 140 mmHg left arm BP Diastolic Sitting 90 mmHg left arm 03/10/2018 9:04am Height 62.5 inches 5'2.50" Weight 143.12 lb without shoes Heart Rate 72 /min BP Systolic Sitting 184 mmHg left arm BP Diastolic Sitting 98 mmHg left arm BP Systolic Standing 148 mmHg la BP Diastolic Standing 86 mmHg la BMI (Body Mass Index) 25.8 kg/m2 Ejection Fraction 60-65% 11/03/2014 Echocardiogram 02/26/2018 9:12am Height 62.5 inches 5'2.50" Weight 146.00 lb Heart Rate 70 /min BP Systolic Sitting 126 mmHg BP Diastolic Sitting 78 mmHg Respiratory Rate 16 /min BMI (Body Mass Index) 26.3 kg/m2 01/28/2018 9:21am Height 62.5 inches 5'2.50" Weight 145.25 lb Heart Rate 56 /min BP Systolic 161 mmHg BP Diastolic 92 mmHg Respiratory Rate 20 /min Body Temperature 97.9 F O2 % BldC Oximetry 100 % BMI (Body Mass Index) 26.1 kg/m2 05/06/2017 10:48am Height 62.5 inches 5'2.50" Weight 143.25 lb no shoes Heart Rate 70 /min BP Systolic 120 mmHg L/Arm Reg Cuff BP Diastolic 80 mmHg L/Arm Reg Cuff BMI (Body Mass Index) 25.8 kg/m2 Ejection Fraction 60-65% Echocardiogram 11/03/2014 02/12/2017 8:49am Height 62.5 inches 5'2.50" Weight 148.00 lb Heart Rate 68 /min BP Systolic 118 mmHg BP Diastolic 90 mmHg Respiratory Rate 14 /min BMI (Body Mass Index) 26.6 kg/m2 09/03/2016 9:20am Height 64.5 inches 5'4.50" Weight 149.50 lb no shoes Heart Rate 64 /min BP Systolic Sitting 124 mmHg Lue reg cuff BP Diastolic Sitting 74 mmHg Lue reg cuff BP Systolic Standing 130 mmHg Lue reg cuff BP Diastolic Standing 80 mmHg Lue reg cuff Respiratory Rate 19 /min BMI (Body Mass Index) 25.3 kg/m2 Ejection Fraction 60-65% 11/03/2014-echo 07/09/2016 8:58am Height 64.5 inches 5'4.50" Weight 147.25 lb w/o shoes Heart Rate 78 /min BP Systolic Sitting 116 mmHg LA reg cuff BP Diastolic Sitting 64 mmHg LA reg cuff BMI (Body Mass Index) 24.9 kg/m2 Ejection Fraction 60% - 65% echo 11/03/14 02/14/2016 9:17am Height 64.5 inches 5'4.50" Weight 148.00 lb Heart Rate 68 /min BP Systolic Sitting 132 mmHg BP Diastolic Sitting 80 mmHg BMI (Body Mass Index) 25.0 kg/m2 08/07/2015 12:47pm Height 64.5 inches 5'4.50" Weight 151.25 lb with shoes Heart Rate 64 /min BP Systolic 108 mmHg LA reg cuff BP Diastolic 64 mmHg LA reg cuff BMI (Body Mass Index) 25.6 kg/m2 Ejection Fraction 60%-65% echo 11/03/14 01/10/2015 8:57am Height 64.5 inches 5'4.50" Weight 152.00 lb Heart Rate 68 /min BP Systolic Sitting 126 mmHg BP Diastolic Sitting 78 mmHg Respiratory Rate 16 /min BMI (Body Mass Index) 25.7 kg/m2 10/18/2014 9:01am Height 64.5 inches 5'4.50" Weight 157.00 lb w/shoes Heart Rate 76 /min BP Systolic Sitting 142 mmHg LA reg cuff BP Diastolic Sitting 80 mmHg LA reg cuff BP Systolic Standing 128 mmHg la sitting repeat BP Diastolic Standing 76 mmHg la sitting repeat BMI (Body Mass Index) 26.5 kg/m2 Ejection Fraction 57 Nem 07/01/12 08/24/2014 10:00am Height 64.5 inches 5'4.50" Weight 153.00 lb Heart Rate 72 /min BP Systolic Sitting 122 mmHg BP Diastolic Sitting 70 mmHg BMI (Body Mass Index) 25.9 kg/m2 01/12/2014 9:18am Height 64.5 inches 5'4.50" Weight 153.00 lb Heart Rate 64 /min BP Systolic Sitting 130 mmHg BP Diastolic Sitting 82 mmHg Respiratory Rate 20 /min BMI (Body Mass Index) 25.9 kg/m2 12/01/2013 9:00am Height 64.5 inches 5'4.50" Weight 154.00 lb Heart Rate 62 /min BP Systolic Sitting 138 mmHg BP Diastolic Sitting 66 mmHg Pain Level 10 back BMI (Body Mass Index) 26.0 kg/m2 09/20/2013 9:52am Height 64.5 inches 5'4.50" Weight 147.00 lb Heart Rate 78 /min BP Systolic Sitting 122 mmHg BP Diastolic Sitting 90 mmHg Pain Level 1 Back & L leg BMI (Body Mass Index) 24.8 kg/m2 08/23/2013 10:24am Weight 143.00 lb Heart Rate 63 /min BP Systolic Sitting 132 mmHg BP Diastolic Sitting 64 mmHg Pain Level 4 lower back 07/26/2013 10:45am Weight 146.00 lb Heart Rate 80 /min BP Systolic Sitting 142 mmHg BP Diastolic Sitting 84 mmHg Body Temperature 98.6 F O2 % BldC Oximetry 97 % 07/12/2013 3:03pm Height 64.5 inches 5'4.50" Weight 151.00 lb BP Systolic 144 mmHg BP Diastolic 86 mmHg Pain Level 4 low back BMI (Body Mass Index) 25.5 kg/m2 06/03/2013 11:18am Weight 140.00 lb Heart Rate 68 /min BP Systolic Sitting 110 mmHg BP Diastolic Sitting 76 mmHg 12/29/2012 8:48am Heart Rate 80 /min BP Systolic Sitting 120 mmHg BP Diastolic Sitting 60 mmHg Respiratory Rate 18 /min 09/07/2012 3:38pm Height 65 inches 5'5" Weight 146.00 lb Heart Rate 62 /min BP Systolic 120 mmHg BP Diastolic 76 mmHg Respiratory Rate 16 /min BMI (Body Mass Index) 24.3 kg/m2 05/18/2012 11:41am Height 65 inches 5'5" Weight 145.50 lb Heart Rate 64 /min BP Systolic Sitting 102 mmHg BP Diastolic Sitting 70 mmHg BMI (Body Mass Index) 24.2 kg/m2 05/09/2010 8:57am Height 65 inches 5'5" Weight 135.00 lb Heart Rate 71 /min BP Systolic Sitting 142 mmHg L BP Diastolic Sitting 82 mmHg L BMI (Body Mass Index) 22.5 kg/m2 10/06/2009 10:26am Height 65 inches 5'5" Weight 134.00 lb Heart Rate 72 /min BP Systolic Sitting 130 mmHg BP Diastolic Sitting 80 mmHg BP Systolic Standing 132 mmHg BP Diastolic Standing 80 mmHg BP Systolic Lying Down 140 mmHg BP Diastolic Lying Down 80 mmHg Respiratory Rate 16 /min BMI (Body Mass Index) 22.3 kg/m2 Results Test Date Facility Test Result H/L Range Note Laboratory test 03/06/2018 [facility] Surgical SEE RESULT [address] [place] [address] [phone] Laboratory test 12/23/2017 [facility] Surgical SEE RESULT [address] [place] [address] [phone] CBC Auto Diff 10/04/2017 [facility] White Blood 8.6 10^3/uL N 3.5-10.[address] [place] [address] [phone] Red Blood Count 4.31 10^6/uL N 4.00-5.40 Hemoglobin 13.3 g/dL Low 14.0-18.0 Hematocrit 39 % Low 42-52 Mean Corpuscular Volume 89 fL N 80-94 Mean Corpuscular Hemoglobin 31 pg N 27-31 Mean Corpuscular HGB Conc 35 g/dL N 31-36 Red Cell Distribution Width 14 % N 10.5-15 Platelet Count 332 10^3/uL N 150-450 Mean Platelet Volume 7.5 um3 N 7.4-10.4 Abs Neutrophils 6.1 10^3/uL N 1.5-7.7 Abs Lymphocytes 1.6 10^3/uL N 1.0-4.8 Abs Monocytes 0.7 10^3/uL N 0-0.8 Abs Eosinophils 0.3 10^3/uL N 0-0.6 Abs Basophils 0 10^3/uL N 0-0.2 Abs Nucleated RBC 0 10^3/uL Granulocyte % 70.3 % N 38-83 Lymphocyte % 18.5 % Low 25-47 Monocyte % 7.6 % High 0-7 Eosinophil % 3.1 % N 0-6 Basophil % 0.5 % N 0-2 Nucleated Red Blood Cells % 0 Lipid Panel - 10/04/2017 [facility] Creatine 107 U/L N 10-[address] Kinase(CK) [place] [address] [phone] Comp Metabolic 10/04/2017 [facility] Sodium 142 N 135-[address] mmol/L [place], [place] [id number] [phone] Chloride 106 mmol/L N 101-111 Co2 Carbon Dioxide 31 mmol/L N 22-32 Glucose 86 mg/dL N 70-100 Blood Urea Nitrogen 12 mg/dL N 6-24 Creatinine 0.79 mg/dL N 0.67-1.17 BUN/Creatinine Ratio 15.2 N 8-20 Calcium 9.5 mg/dL N 8.6-10.3 Total Protein 6.6 g/dL N 6.4-8.9 Albumin 3.8 g/dL N 3.2-5.2 Globulin 2.8 g/dL N 2-4 Albumin/Globulin Ratio 1.4 N 1-3 Total Bilirubin 0.30 mg/dL N 0.2-1.0 Alkaline Phosphatase 102 U/L N 34-104 Alt 14 U/L N 7-52 Ast 17 U/L N 13-39 Egfr Non- 100.7 >60 Egfr 121.9 >60 3 Potassium 5.1 mmol/L High 3.5-5.0 Anion Gap 5 mmol/L N 2-11 Lipid Profile 10/04/2017 [facility] Triglycerides 156 mg/dL 4 (Trig/Chol/HDL) [address] [place] [address] [phone] Cholesterol 141 mg/dL 5 HDL Cholesterol 33.4 mg/dL 6 LDL Cholesterol 76 mg/dL 7 Lipid Panel - 10/29/2016 [facility] Creatine 95 U/L N 10-223 8, [address] Kinase([place]) [place] [address] [phone] Comp Metabolic 10/29/2016 [facility] Sodium 140 N 133-[address] mmol/L [place], [place] [id number] [phone] Potassium 4.8 mmol/L N 3.5-5.0 Chloride 106 mmol/L N 101-111 Co2 Carbon Dioxide 30 mmol/L N 22-32 Anion Gap 4 mmol/L N 2-11 Glucose 95 mg/dL N 70-100 Blood Urea Nitrogen 15 mg/dL N 6-24 Creatinine 0.84 mg/dL N 0.67-1.17 BUN/Creatinine Ratio 17.9 N 8-20 Calcium 9.3 mg/dL N 8.6-10.3 Total Protein 6.5 g/dL N 6.4-8.9 Albumin 3.8 g/dL N 3.2-5.2 Globulin 2.7 g/dL N 2-4 Albumin/Globulin Ratio 1.4 N 1-3 Total Bilirubin 0.30 mg/dL N 0.2-1.0 Alkaline Phosphatase 75 U/L N 34-104 Alt 11 U/L N 7-52 Ast 15 U/L N 13-39 Egfr Non- 94.2 N >60 Egfr 121.1 N >60 10 Lipid Profile 10/29/2016 [facility] Triglycerides 94 mg/dL N 11 (Trig/Chol/HDL) [address] [place] [address] [phone] Cholesterol 138 mg/dL N 12 HDL Cholesterol 36.4 mg/dL N 13 LDL Cholesterol 83 mg/dL N 14 CBC Auto Diff 08/12/2016 [facility] White Blood 7.3 10^3/uL N 3.5-10.[address] [place] [address] [phone] Red Blood Count 4.41 10^6/uL N 4.0-5.4 Hemoglobin 13.4 g/dL Low 14.0-18.0 Hematocrit 40 % Low 42-52 Mean Corpuscular Volume 90 fL N 80-94 Mean Corpuscular Hemoglobin 30 pg N 27-31 Mean Corpuscular HGB Conc 34 g/dL N 31-36 Red Cell Distribution Width 13 % N 10.5-15 Platelet Count 255 10^3/uL N 150-450 Mean Platelet Volume 8 um3 N 7.4-10.4 Abs Neutrophils 4.7 10^3/uL N 1.5-7.7 Abs Lymphocytes 1.7 10^3/uL N 1.0-4.8 Abs Monocytes 0.6 10^3/uL N 0-0.8 Abs Eosinophils 0.3 10^3/uL N 0-0.6 Abs Basophils 0.1 10^3/uL N 0-0.2 Abs Nucleated RBC 0 10^3/uL N Granulocyte % 64.1 % N 38-83 Lymphocyte % 23.6 % Low 25-47 Monocyte % 7.8 % N 1-9 Eosinophil % 3.7 % N 0-6 Basophil % 0.8 % N 0-2 Nucleated Red Blood Cells % 0 N Lipid Panel - 08/12/2016 [facility] Creatine 447 U/L High 10- 223 [address] [place] [address] [phone] Comp Metabolic 08/12/2016 [facility] Sodium 139 N 133-[address] mmol/[place] [address] [phone] Potassium 4.8 mmol/L N 3.5-5.0 Chloride 106 mmol/L N 101-111 Co2 Carbon Dioxide 29 mmol/L N 22-32 Anion Gap 4 mmol/L N 2-11 Glucose 95 mg/dL N 70-100 Blood Urea Nitrogen 14 mg/dL N 6-24 Creatinine 0.74 mg/dL N 0.67-1.17 BUN/Creatinine Ratio 18.9 N 8-20 Calcium 9.1 mg/dL N 8.6-10.3 Total Protein 6.3 g/dL Low 6.4-8.9 Albumin 3.6 g/dL N 3.2-5.2 Globulin 2.7 g/dL N 2-4 Albumin/Globulin Ratio 1.3 N 1-3 Total Bilirubin 0.40 mg/dL N 0.2-1.0 Alkaline Phosphatase 80 U/L N 34-104 Alt 11 U/L N 7-52 Ast 18 U/L N 13-39 Egfr Non- 109.4 N >60 Egfr 140.7 N >60 16 Lipid Profile 08/12/2016 [facility] Triglycerides 94 mg/dL N 17 (Trig/Chol/HDL) [address] [place] [address] [phone] Cholesterol 118 mg/dL N 18 HDL Cholesterol 34.4 mg/dL N 19 LDL Cholesterol 65 mg/dL N 20 Lipid Panel - 06/14/2013 [facility] Creatine Kinase 126 U/L N 10-223 [address] [place] [address] [phone] Comp Metabolic 06/14/2013 [facility] Sodium 139 N 133-[address] mmol/[place] [address] [phone] Potassium 4.5 mmol/L N 3.7-5.6 Chloride 106 mmol/L N 101-111 Co2 Carbon Dioxide 29 mmol/L N 22-32 Anion Gap 4 mmol/L N 2-11 Glucose 87 mg/dL N 70-100 Blood Urea Nitrogen 22 mg/dL N 6-24 Creatinine 0.85 mg/dL N 0.67-1.17 BUN/Creatinine Ratio 25.9 High 8-20 Calcium 9.1 mg/dL N 8.6-10.3 Total Protein 6.5 g/dL N 6.4-8.9 Albumin 4.1 g/dL N 3.2-5.2 Globulin 2.4 g/dL N 2-4 Albumin/Globulin Ratio 1.7 N 1-3 Total Bilirubin 0.40 mg/dL N 0.2-1.0 Alkaline Phosphatase 69 U/L N 34-104 Alt 14 U/L N 7-52 Ast 16 U/L N 13-39 Egfr Non- 94.3 N >60 Egfr 121.3 N >60 22 CBC Auto Diff 06/14/2013 [facility] White Blood 10.0 10^3/uL N 4.8-10.[address] [place] [address] [phone] Red Blood Count 4.32 10^6/uL N 4.0-5.4 Hemoglobin 13.5 g/dL Low 14.0-18.0 Hematocrit 40 % Low 42-52 Mean Corpuscular Volume 92 fL N 80-94 Mean Corpuscular Hemoglobin 31 pg N 27-31 Mean Corpuscular HGB Conc 34 g/dL N 31-36 Red Cell Distribution Width 13 % N 10.5-15 Platelet Count 290 10^3/uL N 150-450 Mean Platelet Volume 7 um3 Low 7.4-10.4 Abs Neutrophils 6.5 10^3/uL N 1.5-7.7 Abs Lymphocytes 2.4 10^3/uL N 1.0-4.8 Abs Monocytes 0.6 10^3/uL N 0-0.8 Abs Eosinophils 0.3 10^3/uL N 0-0.6 Abs Basophils 0.1 10^3/uL N 0-0.2 Abs Nucleated RBC 0.01 10^3/uL N Granulocyte % 65.1 % N 38-83 Lymphocyte % 24.5 % Low 25-47 Monocyte % 6.2 % N 1-9 Eosinophil % 2.8 % N 0-6 Basophil % 1.4 % N 0-2 Nucleated Red Blood Cells % 0.1 N Lipid Profile 06/14/2013 [facility] Triglycerides 50 mg/dL N 23 (Trig/Chol/HDL) [address] [place] [address] [phone] Cholesterol 124 mg/dL N 24 HDL Cholesterol 36.8 mg/dL N 25 LDL Cholesterol 77 mg/dL N 26 Lipid Profile 08/03/2012 [facility] Triglycerides 67 mg/dL 40 -200 (Trig/Chol/HDL) [address] [place] [address] [phone] Cholesterol 109 mg/dL Less than 200 HDL Cholesterol 33 mg/dL Low 40-60 27 Cholesterol/HDL Ratio 3.3 Average 1-4.44 LDL Cholesterol 62.6 Less Than 100 28 Comp Metabolic Panel 08/03/2012 [facility] Sodium 139 mmol/L 133-145 [address] [place] [address] [phone] Potassium 4.6 mmol/L 3.5-5.0 Chloride 105 mmol/L 101-111 Co2 Carbon Dioxide 27.0 mmol/L 22-32 Anion Gap 7.0 mmol/L 2-11 Glucose 80 mg/dL 70-100 Blood Urea Nitrogen 10 mg/dL 6-24 Creatinine 0.80 mg/dL 0.50-1.40 BUN/Creatinine Ratio 12.5 8-20 Calcium 9.3 mg/dL 8.1-9.9 Total Protein 6.3 g/dL 6.2-8.1 Albumin 3.7 g/dL 3.6-5.4 Globulin 2.6 g/dL 2-4 Albumin/Globulin Ratio 1.4 1-3 Total Bilirubin 0.6 mg/dL 0.4-1.5 Alkaline Phosphatase 78 U/L 30-110 Alt 20 U/L 14-54 Ast 23 U/L 12-42 Egfr Non- 101.5 >60 Egfr 130.6 >60 29 Lipid Panel 08/03/2012 [facility] Creatine Kinase 318 U/L High 0-200 30 - JFM [address] [place] [address] [phone] CBC Auto 06/01/2012 [facility] White Blood 10.5 4.8-10.[address] Count 10^3/[place] [address] [phone] Red Blood Count 4.27 10^6/uL 4.0-5.4 Hemoglobin 13.4 g/dL Low 14.0-18.0 Hematocrit 40 % Low 42-52 Mean Corpuscular Volume 93 fL 80-94 Mean Corpuscular Hemoglobin 31 pg 27-31 Mean Corpuscular HGB Conc 34 g/dL 31-36 Red Cell Distribution Width 14 % 10.5-15 Platelet Count 291 10^3/uL 150-450 Mean Platelet Volume 8 um3 7.4-10.4 Abs Neutrophils 7.3 10^3/uL 1.5-7.7 Abs Lymphocytes 2.0 10^3/uL 1.0-4.8 Abs Monocytes 0.7 10^3/uL 0-0.8 Abs Eosinophils 0.4 10^3/uL 0-0.6 Abs Basophils 0.1 10^3/uL 0-0.2 Abs Nucleated RBC 0 10^3/uL Granulocyte % 69.4 % 38-83 Lymphocyte % 19.1 % Low 25-47 Monocyte % 6.7 % 1-9 Eosinophil % 3.8 % 0-6 Basophil % 1.0 % 0-2 Nucleated Red Blood Cells % 0 Laboratory test 06/01/2012 [facility] Creatine Kinase 132 U/L 0-200 31 finding [address] [place] [address] [phone] Lipid Profile 06/01/2012 [facility] Triglycerides 56 mg/dL 40 -200 (Trig/Chol/HDL) [address] [place] [address] [phone] Cholesterol 126 mg/dL Less than 200 HDL Cholesterol 35 mg/dL Low 40-60 32 Cholesterol/HDL Ratio 3.6 Average 1-4.44 LDL Cholesterol 79.8 mg/dL Less Than 100 33 Comp Metabolic Panel 06/01/2012 [facility] Sodium 141 mmol/L 133-145 [address] [place] [address] [phone] Potassium 4.4 mmol/L 3.5-5.0 Chloride 107 mmol/L 101-111 Co2 Carbon Dioxide 28.0 mmol/L 22-32 Anion Gap 6.0 mmol/L 2-11 Glucose 95 mg/dL 70-100 Blood Urea Nitrogen 15 mg/dL 6-24 Creatinine 0.90 mg/dL 0.50-1.40 BUN/Creatinine Ratio 16.7 8-20 Calcium 9.5 mg/dL 8.1-9.9 Total Protein 6.0 g/dL Low 6.2-8.1 Albumin 3.8 g/dL 3.6-5.4 Globulin 2.2 g/dL 2-4 Albumin/Globulin Ratio 1.7 1-3 Total Bilirubin 0.4 mg/dL 0.4-1.5 Alkaline Phosphatase 76 U/L 30-110 Alt 19 U/L 14-54 Ast 22 U/L 12-42 Egfr Non- 88.6 >60 Egfr 114.0 >60 34 1 SEE RESULT BELOW Name: Derrick BEJARANO : [address]: Ernie Zavala MD Acct: [id number] Unit: [id number] AGE: 57 Location: ENDO Re03/06/18 SEX: M Status: DEP REF SPEC: [id number] GILBERT: 03/06/18- DR: Ernie Zavala MD REQ: [id number] RECD: 03/06/18 STATUS: CLEOPATRA DUNCAN DR: Kurtis Iyer MD _ ORDERED: LEVEL 4/7 FINAL DIAGNOSIS 1. Colon, rectum at 4 cm, biopsy: -- Hyperplastic polyp. 2. Colon, rectum at 6 cm, biopsy: -- Hyperplastic polyp. 3. Colon, proximal right, biopsy: -- Tubular adenoma. -- No high grade dysplasia or malignancy. 4. Colon, distal right, biopsy: -- Tubular adenoma. -- No high grade dysplasia or malignancy. 5. Colon, ileocecal valve, biopsy: -- Tubular adenoma. -- No high grade dysplasia or malignancy. 6. Colon, hepatic flexure, biopsy: -- Tubular adenoma. -- No high grade dysplasia or malignancy. 7. Colon, proximal transverse, biopsy: -- Hyperplastic polyp. CONTINUED ON NEXT PAGE DEPARTMENT OF PATHOLOGY, [address] [place] [address] Erich Serna M.D. Director [facility] # [id number] RUN DATE: 03/10/18 [facility] LAB LIVE PAGE 2 Patient: Derrick BEJARANO [id number] (Continued) POST-OPERATIVE DIAGNOSIS (Continued) POST-OPERATIVE DIAGNOSIS Colonoscopy: to cecum with ease; conclusions: diverticulosis - mild left; polyps (7) GROSS DESCRIPTION 1. The specimen is received in formalin labeled, Biopsy Rectal Polyp at 4 cm, and consists of a 0.3 by up to 0.3 x 0.2 cm mckeon-brown irregular to polypoid soft tissue fragment which is submitted entirely in one cassette. 2. The specimen is received in formalin labeled, Biopsy Rectal Polyp at 6 cm, and consists of a 0.4 x 0.3 x 0.2 cm mckeon-brown irregular to polypoid soft tissue fragment which is submitted entirely in one cassette. 3. The specimen is received in formalin labeled, Proximal Right Colon Polyp , and consists of two mckeon irregular to polypoid soft tissue fragments averaging 0.5 x 0.4 x 0.1 cm which are submitted entirely in one cassette. 4. The specimen is received in formalin labeled, Distal Right Colon, and consists of a 0.8 x 0.7 by up to 0.2 cm aggregate of mckeon irregular soft tissue fragments which is submitted entirely in one cassette. 5. The specimen is received in formalin labeled, Ileocecal Colon Polyp, and consists of a 0.7 x 0.2 x 0.1 cm mckeon irregular to polypoid soft tissue fragment which is submitted entirely in one cassette. 6. The specimen is received in formalin labeled, Colon Polyp Hepatic Flexure, and consists of a 0.5 x 0.3 x 0.1 cm mckoen polypoid soft tissue fragment with scant adherent organic material which is submitted entirely in one cassette. 7. The specimen is received in formalin labeled, Biopsy Proximal Transverse Colon Polyp, and consists of a 0.7 x 0.4 by up to 0.3 cm aggregate of mckeon-brown irregular to polypoid soft tissue fragments which is submitted entirely in one cassette. Signed by and Reported on: Michaela Shipman MD 03/10/18 1026 END OF REPORT DEPARTMENT OF PATHOLOGY, [address] [place] [address] Erich Serna M.D. Director [facility] # [id number] 2 SEE RESULT BELOW Name: Derrick BEJARANO : [address]: Antoine Del Cid MD Acct: [id number] Unit: [id number] AGE: 57 Location: [place] [address] Re12/22/17 Dis: 12/24/17 SEX: M Status: DIS Chris SPEC: [id number] [place]: 12/23/17 [facility] DR: Ernie Zavala MD REQ: [id number] RECD: 12/23/17 STATUS: CLEOPATRA DUNCAN DR: Clarisse Corona MD _ ORDERED: LEVEL 4 FINAL DIAGNOSIS Stomach, biopsy: -- Antral-type gastric mucosa with moderate chronic gastritis and reactive chemical gastropathy; see comment. COMMENT: An H. pylori immunohistochemical stain is pending and the results will be reported in an addendum. CLINICAL HISTORY Abdominal pain POST-OPERATIVE DIAGNOSIS EGD: esophagus - normal esophagogastric 40 cm, small hiatal hernia, no erosions; stomach - normal, with cyst, prepyloric gastritis; duodenum - folds but no blood, erosion on ulcer; digital rectal exam: nodular start; conclusions: prepyloric gastritis GROSS DESCRIPTION The specimen is received in formalin labeled, Gastritis Biopsy, and consists of two mckeon-white irregular soft tissue fragments measuring 0.5 x 0.2 by up to 0.2 cm and 0.6 x 0.2 x 0.2 cm which are submitted entirely in one cassette. Signed by and Reported on: Michaela Shipman MD 12/25/17 1040 END OF REPORT DEPARTMENT OF PATHOLOGY, [address] [place] [address] Erich Serna M.D. Director [facility] # [id number] 3 Because ethnic data is not always readily available, this report includes an eGFR for both -Americans and non- Americans. The National Kidney Disease Education Program (NKDEP) does not endorse the use of the MDRD equation for patients that are not between the ages of 18 and 70, are , have extremes of body size, muscle mass, or nutritional status, or are non- or non-. According to the National Kidney Foundation, irrespective of diagnosis, the stage of the disease is based on the level of kidney function: Stage Description GFR(mL/min/1.73 m(2)) 1 Kidney damage with normal or decreased GFR 90 2 Kidney damage with mild decrease in GFR 60-89 3 Moderate decrease in GFR 30-59 4 Severe decrease in GFR 15-29 5 Kidney failure <15 (or dialysis) 4 Desirable: <150 Borderline High: 150-199 High: 200-499 Very High: >500 5 Desirable: <200 Borderline High: 200-239 High: >239 6 Low: <40 Desirable: 40-60 High: >60 7 Desirable: <100 Near Optimal: 100-129 Borderline High: 130-159 High: 160-189 Very High: >189 8 FASTING 9 FASTING 10 Because ethnic data is not always readily available, this report includes an eGFR for both -Americans and non- Americans. The National Kidney Disease Education Program (NKDEP) does not endorse the use of the MDRD equation for patients that are not between the ages of 18 and 70, are , have extremes of body size, muscle mass, or nutritional status, or are non- or non-. According to the National Kidney Foundation, irrespective of diagnosis, the stage of the disease is based on the level of kidney function: Stage Description GFR(mL/min/1.73 m(2)) 1 Kidney damage with normal or decreased GFR 90 2 Kidney damage with mild decrease in GFR 60-89 3 Moderate decrease in GFR 30-59 4 Severe decrease in GFR 15-29 5 Kidney failure <15 (or dialysis) 11 Desirable <150 Borderline high 150-199 High 200-499 Very High >500 12 Desirable <200 Borderline high 200-239 High >239 13 Low <40 Desirable: 40-60 High: >60 14 Desirable: <100 mg/dL Near Optimal: 100-129 mg/dL Borderline High: 130-159 mg/dL High: 160-189 mg/dL Very High: >189 mg/dL 15 FASTING 16 Because ethnic data is not always readily available, this report includes an eGFR for both -Americans and non- Americans. The National Kidney Disease Education Program (NKDEP) does not endorse the use of the MDRD equation for patients that are not between the ages of 18 and 70, are , have extremes of body size, muscle mass, or nutritional status, or are non- or non-. According to the National Kidney Foundation, irrespective of diagnosis, the stage of the disease is based on the level of kidney function: Stage Description GFR(mL/min/1.73 m(2)) 1 Kidney damage with normal or decreased GFR 90 2 Kidney damage with mild decrease in GFR 60-89 3 Moderate decrease in GFR 30-59 4 Severe decrease in GFR 15-29 5 Kidney failure <15 (or dialysis) 17 Desirable <150 Borderline high 150-199 High 200-499 Very High >500 18 Desirable <200 Borderline high 200-239 High >239 19 Low <40 Desirable: 40-60 High: >60 20 Desirable: <100 mg/dL Near Optimal: 100-129 mg/dL Borderline High: 130-159 mg/dL High: 160-189 mg/dL Very High: >189 mg/dL 21 FASTING 22 Because ethnic data is not always readily available, this report includes an eGFR for both -Americans and non- Americans. The National Kidney Disease Education Program (NKDEP) does not endorse the use of the MDRD equation for patients that are not between the ages of 18 and 70, are , have extremes of body size, muscle mass, or nutritional status, or are non- or non-. According to the National Kidney Foundation, irrespective of diagnosis, the stage of the disease is based on the level of kidney function: Stage Description GFR(mL/min/1.73 m(2)) 1 Kidney damage with normal or decreased GFR 90 2 Kidney damage with mild decrease in GFR 60-89 3 Moderate decrease in GFR 30-59 4 Severe decrease in GFR 15-29 5 Kidney failure <15 (or dialysis) 23 Desirable <150 Borderline high 150-199 High 200-499 Very High >500 24 Desirable <200 Borderline high 200-239 High >239 25 Low <40 Desirable: 40-60 High: >60 26 Desirable <100 Near Optimal 100-129 Borderline high 130-159 High 160-189 Very High >189 27 HDL Interpretation: Undesirable: High Risk: Less than 40 mg/dL Desirable: Low Risk: Greater than 60 mg/dL 28 LDL Interpretation: Low Risk Optimal Level: LDL Less than 100 mg/dL Near or Above Optimal: LDL 100-129 mg/dL Borderline High Risk: LDL 130-159 mg/dL High Risk: LDL 160-189 mg/dL Very High Risk: LDL Greater than 189 mg/dL 29 Because ethnic data is not always readily available, this report includes an eGFR for both -Americans and non- Americans. The National Kidney Disease Education Program (NKDEP) does not endorse the use of the MDRD equation for patients that are not between the ages of 18 and 70, are , have extremes of body size, muscle mass, or nutritional status, or are non- or non-. According to the National Kidney Foundation, irrespective of diagnosis, the stage of the disease is based on the level of kidney function: Stage Description GFR(mL/min/1.73 m(2)) 1 Kidney damage with normal or decreased GFR 90 2 Kidney damage with mild decrease in GFR 60-89 3 Moderate decrease in GFR 30-59 4 Severe decrease in GFR 15-29 5 Kidney failure <15 (or dialysis) 30 FASTING 31 FASTING 32 HDL Interpretation: Undesirable: High Risk: Less than 40 MG/DL Desirable: Low Risk: Greater than 60 MG/DL 33 LDL Interpretation: Low Risk Optimal Level: LDL Less than 100 MG/DL Near or Above Optimal: LDL 100-129 MG/DL Borderline High Risk: LDL 130-159 MG/DL High Risk: LDL 160-189 MG/DL Very High Risk: LDL Greater than 189 MG/DL 34 Because ethnic data is not always readily available, this report includes an eGFR for both -Americans and non- Americans. The National Kidney Disease Education Program (NKDEP) does not endorse the use of the MDRD equation for patients that are not between the ages of 18 and 70, are , have extremes of body size, muscle mass, or nutritional status, or are non- or non-. According to the National Kidney Foundation, irrespective of diagnosis, the stage of the disease is based on the level of kidney function: Stage Description GFR(mL/min/1.73 m(2)) 1 Kidney damage with normal or decreased GFR 90 2 Kidney damage with mild decrease in GFR 60-89 3 Moderate decrease in GFR 30-59 4 Severe decrease in GFR 15-29 5 Kidney failure <15 (or dialysis) Procedures Date Code Description Status 03/10/2018 41678 EKG Tracing & Interpretation Completed 03/06/2018 62562338 Colonoscopy Completed 03/06/2018 12630 Colonoscopy Flexible Remove Tumor/Polyp/Lesion Snare Completed Technique 12/23/2017 57587 Endoscopy Upper GI Biopsy Completed 05/06/2017 85530 EKG Tracing & Interpretation Completed 12/18/2016 93003 Treadmill Interp/Report Only Completed 12/18/2016 73627 Stress Test Supervsn W/Out I/R Completed 07/09/2016 34334 EKG Tracing & Interpretation Completed 05/08/2016 02132 EKG, Interpretation Only Completed 05/08/2016 44062 Treadmill Interp/Report Only Completed 05/08/2016 96487 Stress Test Supervsn W/Out I/R Completed 08/07/2015 47695 EKG Tracing & Interpretation Completed 11/03/2014 65476 ECHO Transthoracic, Real-Time 2D With Doppler And Color Completed Flow 10/18/2014 74992 EKG Tracing & Interpretation Completed 07/04/2014 77090 Repair Hernia Inguinal > 5Yrs, Reducible Completed 07/04/2013 75004 Stress Test Supervsn W/Out I/R Completed 07/04/2013 71567 Treadmill Interp/Report Only Completed 06/03/2013 62276 EKG Tracing & Interpretation Completed 12/01/2012 09540 EKG, Interpretation Only Completed 09/07/2012 47222 EKG Tracing & Interpretation Completed 07/01/2012 22959 Treadmill Interp/Report Only Completed 07/01/2012 01785 Stress Test Supervsn W/Out I/R Completed 05/18/2012 71162 EKG Tracing & Interpretation Completed 05/12/2012 89240 Treadmill Interp/Report Only Completed 05/12/2012 50829 Stress Test Supervsn W/Out I/R Completed 04/22/2012 33840 EKG Tracing & Interpretation Completed 04/15/2012 28765 Left Heart Cath. Incl S/I Coronaries, Angio S/I V Gram Completed If Done 04/15/2012 09048 EKG, Interpretation Only Completed 04/14/2012 78895 Color Flow Doppler/Interp & Reprt Completed 04/14/2012 94790 Pulse Wave/Continuous-Interp.RPT Completed 04/14/2012 51701 ECHO Transthorasic Realtime 2D W Doppler & Color Flow Completed Hosp 04/14/2012 34314 EKG, Interpretation Only Completed 11/10/2011 96990 EKG, Interpretation Only Completed 11/10/2011 56223 EKG, Interpretation Only Completed 05/09/2010 19204 EKG Tracing & Interpretation Completed 10/06/2009 99495 EKG Tracing & Interpretation Completed 08/01/2009 56139 Stress ECHO Interpretation/Report Hospital Completed 08/01/2009 67377 Treadmill Interp/Report Only Completed 08/01/2009 54456 Stress Test Supervsn W/Out I/R Completed 09/06/2008 57943 Treadmill Interp/Report Only Completed 09/06/2008 23837 Stress Test Supervsn W/Out I/R Completed Encounters Type Date Location Provider Dx Diagnosis Office Visit 04/23/2018 [facility] Ernie Simpson R07.9 Chest pain, 9:15a MD Lucas unspecified D12.2 Benign neoplasm of ascending colon F17.210 Nicotine dependence, cigarettes, uncomplicated Office Visit 04/08/2018 9:00a [facility] Nurse Visit cc I10 Essential (primary) hypertension Office Visit 03/10/2018 9:20a [facility] Mayur Cruz R07.9 Chest pain, Glynn Espinoza unspecified I25.10 [facility] heart disease of [place] coronary artery w/o ang pctrs I10 Essential (primary) hypertension E78.00 Pure hypercholesterolemia, unspecified Office 01/28/2018 [facility] Ernie Simpson K92.2 Gastrointestinal Visit 8:45a MD Lucas hemorrhage, unspecified K58.1 Irritable bowel syndrome with constipation Office Visit 12/24/2017 [facility] R10.9 Unspecified 8:16a Assocgloria, TAIL EDGER abdominal pain Hospitalists D64.9 Anemia, unspecified R07.9 Chest pain, unspecified Office Visit 12/23/2017 [facility] Ernie Simpson R10.30 Lower abdominal 7:00a MD Lucas pain, unspecified K21.9 Gastro-esophageal reflux disease without esophagitis Office Visit 12/22/2017 [facility] R10.9 Unspecified 8:12a Assgloria braga, TAIL EDGER abdominal pain Hospitalists R07.9 Chest pain, unspecified D64.9 Anemia, unspecified I10 Essential (primary) hypertension Office Visit 05/06/2017 11:00a [facility] Mayur Cruz F95.2 Tourette's Glynn Espinoza disorder R07.89 Other chest pain I10 Essential (primary) hypertension E78.2 Mixed hyperlipidemia I25.10 Athscl heart disease of [place] coronary artery w/o ang pctrs Office Visit 02/12/2017 8:45a [facility] Peewee Wharton F95.2 Tourette's Services Of [facility] Glynn Correa disorder F51.01 Primary insomnia Office Visit 12/18/2016 [facility] Jing, R07.89 Other chest pain 2:56p Assoc,gloria More.Makenna Hospitalists Office [facility], R07.89 Other chest pain 2:56p Assoc,gloria More.Makenna Hospitalists Office Visit 09/03/2016 [facility] Jeanne Owusu, I10 Essential 10:00a Of [facility] [place] (primary) hypertension E78.2 Mixed hyperlipidemia I25.10 Athscl heart disease of [place] coronary artery w/o ang pctrs Office Visit 07/09/2016 9:20a [facility] Mayur Cruz R07.9 Chest pain, Glynn Espinoza unspecified F95.2 Tourette's disorder E78.2 Mixed hyperlipidemia I10 Essential (primary) hypertension I25.10 Athscl heart disease of [place] coronary artery w/o ang pctrs Office Visit 02/14/2016 [facility] Peewee Wharton F95.2 Tourette's 9:45a Clinic Glynn Correa disorder Office Visit 12/27/2015 [facility] Z11.1 Encounter for 8:00a Jacqueline, screening for N.P. respiratory tuberculosis Z02.1 Encounter for pre-employment examination Office Visit 08/07/2015 1:00p [facility] Mayur Cruz R07.9 Chest painOlga M.D. 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 272.2 Hyperlipidemia Mixed 9:00a Cardiology Glynn Espinoza 401.9 Hypertension Unspec 414.01 Coronary Atherosclerosis [place] 786.50 Pain Chest Unspec Office Visit 08/24/2014 10:00a Neurosurgery Peewee Person, 805.4 FX Lumbar Services Of [facility] M.D. Closed W/O Spinal Cord Injury Office Visit 01/12/2014 9:00a [place] Pancho Wharton 307.23 Tourette' s Services Of Snehal Correa M.D. Disorder Office Visit 12/01/2013 10:30a Neurosurgery Peewee Person, 805.4 FX Lumbar Services Of [facility] M.D. Closed W/O Spinal Cord Injury Office Visit 09/20/2013 10:00a Neurosurgery Peewee Person 805.4 FX Lumbar Services Of [facility] M.D. Closed W/O Spinal Cord Injury Office Visit 08/23/2013 10:15a Neurosurgery Peewee Person 805.4 FX Lumbar Services Of [facility] M.D. Closed W/O Spinal Cord Injury Office Visit 07/26/2013 10:45a Neurosurgery Peewee Person, 805.4 FX [facility]bar Services Of [facility] M.D. Closed W/O Spinal Cord Injury Office Visit 07/12/2013 3:15p Neurosurgery Peewee Person, 805.4 FX Lumbar Services Of [facility]ache M.D. Closed W/O Spinal Cord Injury Office Visit 07/04/2013 4:23p [facility] Vince Ch, 786.50 Pain Chest Assoc,pc M.D. Unspec Hospitalists 414.01 Coronary Atherosclerosis [place] 401.9 Hypertension Unspec 272.2 Hyperlipidemia Mixed Office Visit 07/03/2013 4:22p [facility] Vince Ch, 786.50 Pain Chest Assoc,pc M.D. Unspec Hospitalists 414.01 Coronary Atherosclerosis [place] 401.9 Hypertension Unspec 272.2 Hyperlipidemia Mixed Office Visit 06/03/2013 10:40a [facility] Mayur Cruz 786.59 Pain Chest Glynn Espinoza Other 307.23 Tourette's Disorder 414.01 Coronary Atherosclerosis [place] 305.1 Tobacco Use Disorder 272.0 Hypercholesterolemia Pure Office Visit 12/29/2012 8:30a [facility] [place] Pancho Wharton 307.23 Tourette' s Services Of Snehal Correa M.D. Disorder Office Visit 12/01/2012 10:55a [facility] Peewee Bejarano 786.59 Pain Chest Other Assoc,gloria Ta M.D. Hospitalists 414.01 Coronary Atherosclerosis [place] 729.5 Pain In Limb 305.1 Tobacco Use Disorder Office Visit 11/30/2012 10:55a [facility] Rupal Hoskins, 729.5 Pain In Limb Assoc,pc Hospitalists N.P. 414.01 Coronary Atherosclerosis [place] 786.59 Pain Chest Other 305.1 Tobacco Use Disorder Office Visit 09/07/2012 3:20p [facility] Mayur Cruz 786.50 Pain Chest Glynn Espinoza Unspec 414.01 Coronary Atherosclerosis [place] 401.1 Hypertension Benign Office Visit 07/01/2012 12:30p [facility] Mayur Cruz 786.50 Pain Chest Glynn Espinoza Unspec 414.01 Coronary Atherosclerosis [place] Office Visit 05/18/2012 11:40a [facility] Mayur Cruz 401.1 Hypertension Glynn Espinoza Benign 786.05 Shortness Of Breath 414.01 Coronary Atherosclerosis [place] Office Visit 05/12/2012 [facility] Mayur Cruz 414.01 Coronary 9:30a Cardiology Glynn Espinoza Atherosclerosis [place] 401.1 Hypertension Benign 786.50 Pain Chest Unspec Office Visit 04/29/2012 [facility] Luís Villegas, 414.9 Ischemic Heart 4:00p Of [facility] AT [facility] Glynn, [facility] Disease Chronic Unspec Office Visit 04/22/2012 [facility] Luís Villegas, 414.9 Ischemic Heart 3:30p Of [facility] AT [facility] Glynn, [facility] Disease Chronic Unspec Office Visit 04/16/2012 [facility] Kirby Prabhakar 786.51 Pain Precordial 11:06a gloria Maldonado II, M.D. Hospitalists 786.05 Shortness Of Breath 998.11 Complication Other Hemorrhage Complicating A Procedure 458.9 Hypotension Unspec Office Visit 04/15/2012 [facility] Kirby Prabhakar 786.51 Pain Precordial 11:06a gloria Maldonado II, M.D. Hospitalists 998.11 Complication Other Hemorrhage Complicating A Procedure 786.05 Shortness Of Breath 458.9 Hypotension Unspec Office Visit 04/14/2012 11:13a [facility] Mayur Cruz 786.05 ShortMis M.D. Breath 794.31 Electrocardiogram (ECG) (EKG) Abnormal 786.50 Pain Chest Unspec Office Visit 04/14/2012 11:05a [facility] Ciro 786.51 Pain Precordial Assoc,gloria Israel M.D. Hospitalists 305.1 Tobacco Use Disorder Office Visit 11/11/2011 2:41p [facility] Clarisse 560.9 Intestinal Assoc,gloria Tanner M.D. Obstruction Hospitalists Unspec 305.1 Tobacco Use Disorder 786.51 Pain Precordial Office Visit 11/08/2011 [facility] Jayne Burt, 560.9 Intestinal 2:40p Assoc,gloria Maki Obstruction Hospitalists Unspec 305.1 Tobacco Use Disorder Office Visit 05/09/2010 9:00a [facility] Mayur Cruz 786.50 Pain Chest Glynn Espinoza Unspec 780.2 Syncope & Collapse 794.31 Electrocardiogram (ECG) (EKG) Abnormal Office Visit 10/06/2009 10:20a [facility] Mayur Cruz 786.50 Pain Chest Glynn Espinoza Unspec 794.31 Electrocardiogram (ECG) (EKG) Abnormal Office Visit 08/01/2009 1:00a [facility] Az Hidalgo 786.50 Pain Chest gloria Maldonado M.D. Unspec Hospitalists 780.2 Syncope & Collapse Office Visit 07/31/2009 1:15a [facility] Jayne Burt 786.50 Pain Chest Assgloria braga M.D. Unspec Hospitalists Plan of Treatment Future Appointment(s):05/22/2018 10:30 am - Mayur Espinoza M.D. at [facility]
--- OUTSIDE RECORDS SUMMARY | 2018-05-22 09:05 | XMS REPORT | Continuity of Care Document ---
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 16 s every morning Sunny, and 1 every M.D. evening Nitrostat 10/19/19 Active Tablets 0.4mg 25tab one sl q5 min Mayur 15 Sub s up to 3 doses F. as needed Glynn Espinoza Oxycodone-Shin 08/24/19 Active Tablets 5-325mg 60tab 1 po Q6h prn 805.4 Peewee gilletteinokofi 14 s pain Glynn Person Atorvastatin 06/04/19 [...] Tablets 10mg 60tab 1 by mouth Peewee Wharton 00 camryn twice a day Glynn Correa Omeprazole Active [...] Tablets 10mg 60tab 2 tab by Peewee S. HCL 11 - s mouth every Sunny, [...] Available Vital Signs Date Vital Result Comment 04/23/2018 9:34am Height 62.5 inches 5'2.50" Weight [...] Result H/L Range Note Laboratory test 03/06/2018 [facility] Surgical SEE RESULT [address] [place] [address] [phone] Laboratory test 12/23/2017 [facility] Surgical SEE RESULT [address] [place] [address] [phone] CBC Auto Diff 10/04/2017 [facility] White Blood 8.6 10^3/uL N 3.5-10.[address] [place] [address] [phone] Red Blood Count 4.31 10^6/uL N 4.00-5.40 [...] Cells % 0 Lipid Panel - 10/04/2017 [facility] Creatine 107 U/L N 10-[address] Kinase(CK) [place] [address] [phone] Comp Metabolic 10/04/2017 [facility] Sodium 142 N 135-[address] mmol/[place] [address] [phone] Chloride 106 mmol/L N 101-111 Co2 Carbon [...] 5 mmol/L N 2-11 Lipid Profile 10/04/2017 [facility] Triglycerides 156 mg/dL 4 (Trig/Chol/HDL) [address] [place] [address] [phone] Cholesterol 141 mg/dL 5 HDL Cholesterol 33.4 mg/dL 6 LDL Cholesterol 76 mg/dL 7 Lipid Panel - 10/29/2016 [facility] Creatine 95 U/L N 10-223 8, [address] Kinase(CK) [place] [address] [phone] Comp Metabolic 10/29/2016 [facility] Sodium 140 N 133-[address] mmol/[place] [address] [phone] Potassium 4.8 mmol/L N 3.5-5.0 Chloride 106 [...] 121.1 N >60 10 Lipid Profile 10/29/2016 [facility] Triglycerides 94 mg/dL N 11 (Trig/Chol/HDL) [address] [place] [address] [phone] Cholesterol 138 mg/dL N 12 HDL Cholesterol 36.4 mg/dL N 13 LDL Cholesterol 83 mg/dL N 14 CBC Auto Diff 08/12/2016 [facility] White Blood 7.3 10^3/uL N 3.5-10.[address] [place] [address] [phone] Red Blood Count 4.41 10^6/uL N 4.0-5.4 [...] % 0 N Lipid Panel - 08/12/2016 [facility] Creatine 447 U/L High 10- 223 [address] Kinase [place], [place] [address] [phone] Comp Metabolic 08/12/2016 [facility] Sodium 139 N 133-[address] mmol/L [place], [place] [address] [phone] Potassium 4.8 mmol/L N 3.5-5.0 Chloride 106 [...] 140.7 N >60 16 Lipid Profile 08/12/2016 [facility] Triglycerides 94 mg/dL N 17 (Trig/Chol/HDL) [address] [place] [address] [phone] Cholesterol 118 mg/dL N 18 HDL Cholesterol 34.4 mg/dL N 19 LDL Cholesterol 65 mg/dL N 20 Lipid Panel - 06/14/2013 [facility] Creatine Kinase 126 U/L N 10-223 [address] [place] [address] [phone] Comp Metabolic 06/14/2013 [facility] Sodium 139 N 133-[address] mmol/[place] [address] [phone] Potassium 4.5 mmol/L N 3.7-5.6 Chloride 106 [...] N >60 22 CBC Auto Diff 06/14/2013 [facility] White Blood 10.0 10^3/uL N 4.8-10.[address] [place] [address] [phone] Red Blood Count 4.32 10^6/uL N 4.0-5.4 [...] Cells % 0.1 N Lipid Profile 06/14/2013 [facility] Triglycerides 50 mg/dL N 23 (Trig/Chol/HDL) [address] [place] [address] [phone] Cholesterol 124 mg/dL N 24 HDL Cholesterol 36.8 mg/dL N 25 LDL Cholesterol 77 mg/dL N 26 Lipid Profile 08/03/2012 [facility] Triglycerides 67 mg/dL 40 -200 (Trig/Chol/HDL) [address] [place] [address] [phone] Cholesterol 109 mg/dL Less than 200 HDL Cholesterol 33 mg/dL Low 40-60 27 Cholesterol/HDL Ratio 3.3 Average 1-4.44 LDL Cholesterol 62.6 Less Than 100 28 Comp Metabolic Panel 08/03/2012 [facility] Sodium 139 mmol/L 133-145 [address] [place] [address] [phone] Potassium 4.6 mmol/L 3.5-5.0 Chloride 105 mmol/L [...] Egfr 130.6 >60 29 Lipid Panel 08/03/2012 [facility] Creatine Kinase 318 U/L High 0-200 30 - JFM [address] [place] [address] [phone] CBC Auto 06/01/2012 [facility] White Blood 10.5 4.8-10.[address] Count 10^3/[place] [address] [phone] Red Blood Count 4.27 10^6/uL 4.0-5.4 Hemoglobin [...] Blood Cells % 0 Laboratory test 06/01/2012 [facility] Creatine Kinase 132 U/L 0-200 31 finding [address] [place] [address] [phone] Lipid Profile 06/01/2012 [facility] Triglycerides 56 mg/dL 40 -200 (Trig/Chol/HDL) [address] [place] [address] [phone] Cholesterol 126 mg/dL Less than 200 HDL Cholesterol 35 mg/dL Low 40-60 32 Cholesterol/HDL Ratio 3.6 Average 1-4.44 LDL Cholesterol 79.8 mg/dL Less Than 100 33 Comp Metabolic Panel 06/01/2012 [facility] Sodium 141 mmol/L 133-145 [address] [place] [address] [phone] Potassium 4.4 mmol/L 3.5-5.0 Chloride 107 mmol/L [...] [address]: Ernie Zavala MD Acct: [id number] Unit: [id number] AGE: 57 Location: ENDO Re03/06/18 SEX: M Status: DEP REF SPEC: [id number] GILBERT: 03/06/18- DR: Ernie Zavala MD REQ: [id number] RECD: 03/06/18 STATUS: CLEOPATRA DUNCAN DR: Kurtis [...] CONTINUED ON NEXT PAGE DEPARTMENT OF PATHOLOGY, [address] [place] [address] Erich Serna M.D. Director [facility] # [id number] RUN DATE: 03/10/18 [facility] LAB LIVE PAGE 2 Patient: Derrick BEJARANO [id number] (Continued) POST-OPERATIVE DIAGNOSIS (Continued) POST-OPERATIVE DIAGNOSIS Colonoscopy: [...] a 0.5 x 0.3 x 0.1 cm mckeon polypoid soft tissue fragment with scant adherent [...] 1026 END OF REPORT DEPARTMENT OF PATHOLOGY, [address] [place] [address] Erich Serna M.D. Director [facility] # [id number] 2 SEE RESULT BELOW Name: Derrick BEJARANO : [address]: Antoine Del Cid MD Acct: [id number] Unit: [id number] AGE: 57 Location: [place] [address] Re12/22/17 Dis: 12/24/17 SEX: M Status: DIS Chris SPEC: [id number] GILBERT: 12/23/17 [facility] DR: Ernie Zavala MD REQ: [id number] RECD: 12/23/17 STATUS: CLEOPATRA DUNCAN DR: Clarisse [...] 1040 END OF REPORT DEPARTMENT OF PATHOLOGY, [address] [place] [address] Erich Serna M.D. Director [facility] # [id number] 3 Because ethnic data is not always [...] dialysis) Procedures Date Code Description Status 03/10/2018 03510 EKG Tracing & Interpretation Completed 03/06/2018 74776787 Colonoscopy Completed 03/06/2018 93285 Colonoscopy Flexible Remove Tumor/Polyp/Lesion Snare Completed Technique 12/23/2017 52978 Endoscopy Upper GI Biopsy Completed 05/06/2017 44405 EKG Tracing & Interpretation Completed 12/18/2016 12282 Treadmill Interp/Report Only Completed 12/18/2016 89695 Stress Test Supervsn W/Out I/R Completed 07/09/2016 61228 EKG Tracing & Interpretation Completed 05/08/2016 73160 EKG, Interpretation Only Completed 05/08/2016 77386 Treadmill Interp/Report Only Completed 05/08/2016 81447 Stress Test Supervsn W/Out I/R Completed 08/07/2015 37105 EKG Tracing & Interpretation Completed 11/03/2014 93303 ECHO Transthoracic, Real-Time 2D With Doppler And Color Completed Flow 10/18/2014 41671 EKG Tracing & Interpretation Completed 07/04/2014 29250 Repair Hernia Inguinal > 5Yrs, Reducible Completed 07/04/2013 99694 Stress Test Supervsn W/Out I/R Completed 07/04/2013 38389 Treadmill Interp/Report Only Completed 06/03/2013 86592 EKG Tracing & Interpretation Completed 12/01/2012 18621 EKG, Interpretation Only Completed 09/07/2012 14610 EKG Tracing & Interpretation Completed 07/01/2012 58812 Treadmill Interp/Report Only Completed 07/01/2012 93090 Stress Test Supervsn W/Out I/R Completed 05/18/2012 16388 EKG Tracing & Interpretation Completed 05/12/2012 34463 Treadmill Interp/Report Only Completed 05/12/2012 65581 Stress Test Supervsn W/Out I/R Completed 04/22/2012 80845 EKG Tracing & Interpretation Completed 04/15/2012 95881 Left Heart Cath. Incl S/I Coronaries, Angio S/I V Gram Completed If Done 04/15/2012 56495 EKG, Interpretation Only Completed 04/14/2012 86596 Color Flow Doppler/Interp & Reprt Completed 04/14/2012 66181 Pulse Wave/Continuous-Interp.RPT Completed 04/14/2012 44556 ECHO Transthorasic Realtime 2D W Doppler & Color Flow Completed Hosp 04/14/2012 49010 EKG, Interpretation Only Completed 11/10/2011 01598 EKG, Interpretation Only Completed 11/10/2011 13380 EKG, Interpretation Only Completed 05/09/2010 94190 EKG Tracing & Interpretation Completed 10/06/2009 19497 EKG Tracing & Interpretation Completed 08/01/2009 38222 Stress ECHO Interpretation/Report Hospital Completed 08/01/2009 60689 Treadmill Interp/Report Only Completed 08/01/2009 52948 Stress Test Supervsn W/Out I/R Completed 09/06/2008 18003 Treadmill Interp/Report Only Completed 09/06/2008 76331 Stress Test Supervsn W/Out I/R Completed Encounters Type Date Location Provider Dx Diagnosis Office Visit 04/08/2018 [facility] Nurse Visit cc I10 Essential ( primary) 9:00a hypertension Office Visit 03/10/2018 [facility] Mayur Cruz R07.9 Chest pain, 9:20a Glynn Espinoza unspecified I25.10 Athscl heart disease of [place] coronary artery w/o ang pctrs I10 Essential (primary) hypertension E78.00 Pure hypercholesterolemia, unspecified Office 01/28/2018 [facility] Ernie Simpson K92.2 Gastrointestinal Visit 8:45a MD Lucas hemorrhage, unspecified K58.1 Irritable bowel syndrome with constipation Office Visit 12/24/2017 [facility] R10.9 Unspecified 8:16a Assoc,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, 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 abdominal pain Hospitalists D64.9 Anemia, unspecified R07.9 Chest pain, unspecified Office Visit 12/23/2017 [facility] Ernie Simpson R10.30 Lower abdominal 7:00a MD Lucas pain, unspecified K21.9 Gastro-esophageal reflux disease without esophagitis Office Visit 12/22/2017 [facility] R10.9 Unspecified 8:12a Assoc,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, 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 abdominal pain Hospitalists R07.9 Chest pain, unspecified D64.9 Anemia, unspecified I10 Essential (primary) hypertension Office Visit 05/06/2017 11:00a [facility] Mayur Cruz F95.2 Shericeette's Glynn Espinoza disorder R07.89 Other chest pain I10 Essential (primary) hypertension E78.2 Mixed hyperlipidemia I25.10 Athscl heart disease of [place] coronary artery w/o ang pctrs Office Visit 02/12/2017 8:45a [facility] Peewee Wharton F95.2 Tourette's Services [facility] Glynn Correa disorder F51.01 Primary insomnia [facility] R07.89 Other chest pain 2:56p gloria Maldonado M.D. Hospitalists [facility], R07.89 Other chest pain 2:56p gloria Maldonado M.D. Hospitalists Office Visit 09/03/2016 [facility] Jeanne Owusu, I10 Essential 10:00a [facility] [place] (primary) hypertension E78.2 Mixed hyperlipidemia I25.10 Athscl heart disease of [place] coronary artery w/o ang pctrs Office Visit 07/09/2016 9:20a [facility] Mayur Cruz R07.9 Chest painOlga M.D. unspecified F95.2 Tourette's disorder E78.2 Mixed hyperlipidemia I10 Essential (primary) hypertension I25.10 Athscl heart disease of [place] coronary artery w/o ang pctrs Office Visit 02/14/2016 [facility] Peewee Owesn95.2 Tourette's 9:45a Clinic Glynn Correa disorder Office Visit 12/27/2015 [facility] Z11.1 Encounter for 8:00a Jacqueline, screening for N.P. respiratory tuberculosis Z02.1 Encounter for pre-employment examination Office Visit 08/07/2015 1:00p [facility] Mayur Cruz R07.9 Chest painOlga M.D. unspecified E78.2 Mixed hyperlipidemia F95.2 Tourette's disorder I10 Essential (primary) hypertension I25.10 Athscl heart disease of [place] coronary artery w/o ang pctrs Office Visit 01/10/2015 [facility] F95.2 Tourette's disorder 8:45a Neurologic Glynn Correa Services [facility] Office Visit 10/18/2014 Horacio Cruz 272.2 Hyperlipidemia Mixed 9:00a Cardiology Glynn Espinoza 401.9 Hypertension Unspec 414.01 Coronary Atherosclerosis [place] 786.50 Pain Chest Unspec Office Visit 08/24/2014 10:00a Neurosurgery Peewee Person, 805.4 FX Lumbar Services [facility] Glynn Closed W/O Spinal Cord Injury Office Visit 01/12/2014 9:00a [facility] Peewee S. 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 Closed W/O Spinal Cord Injury Office Visit 07/04/2013 4:23p [facility] Vince Ch, 786.50 Pain Chest Assoc,gloria Maki Unspec Hospitalists 414.01 Coronary Atherosclerosis [place] 401.9 Hypertension Unspec 272.2 Hyperlipidemia Mixed Office Visit 07/03/2013 4:22p [facility] Vince Ch, 786.50 Pain Chest Assoc,gloria Maki Unspec Hospitalists 414.01 Coronary Atherosclerosis [place] 401.9 Hypertension Unspec 272.2 Hyperlipidemia Mixed Office Visit 06/03/2013 10:40a [facility] Mayur Cruz 786.59 Pain Chest Glynn Espinoza Other 307.23 Tourette's Disorder 414.01 Coronary Atherosclerosis [place] 305.1 Tobacco Use Disorder 272.0 Hypercholesterolemia Pure Office Visit 12/29/2012 8:30a [facility] Peewee Wharton 307.23 Tourette' s Services [facility] Glynn Correa Disorder Office Visit 12/01/2012 10:55a [facility] Peewee Bejarano 786.59 Pain Chest Other Assoc,gloria Ta M.D. Hospitalists 414.01 Coronary Atherosclerosis [place] 729.5 Pain In Limb 305.1 Tobacco Use Disorder Office Visit 11/30/2012 10:55a [facility] Rupal Hoskins, 729.5 Pain In Limb Assoc, Hospitalists N.P. 414.01 Coronary Atherosclerosis [place] 786.59 Pain Chest Other 305.1 Tobacco Use Disorder Office Visit 09/07/2012 3:20p [facility] Mayur Cruz 786.50 Pain Chest Glynn Espinoza Unspec 414.01 Coronary Atherosclerosis [place] 401.1 Hypertension Benign Office Visit 07/01/2012 12:30p [facility] Mayur Cruz 786.50 Pain Chest Glynn Espinoza Unspec 414.01 Coronary Atherosclerosis [place] Office Visit 05/18/2012 11:40a [facility] Mayur Cruz 401.1 Hypertension Glynn Espinoza Benign 786.05 Shortness Of Breath 414.01 Coronary Atherosclerosis [place] Office Visit 05/12/2012 [facility] May[facility] Cruz 414.01 Coronary 9:30a Cardiology Glynn Espinoza Atherosclerosis [place] 401.1 Hypertension Benign 786.50 Pain Chest Unspec Office Visit 04/29/2012 [facility] Luís Villegas, 414.9 Ischemic Heart 4:00p [facility] Disease Chronic Unspec Office Visit 04/22/2012 [facility] Luís Villegas, 414.9 Ischemic Heart 3:30p Of [facility] [facility], [facility], [facility] Disease Chronic Unspec Office Visit 04/16/2012 [facility] Kirby Prabhakar 786.51 Pain Precordial 11:06a gloria Maldonado II, M.D. Hospitalists 786.05 Shortness Of Breath 998.11 Complication Other Hemorrhage Complicating A Procedure 458.9 Hypotension Unspec Office Visit 04/15/2012 [facility] Kirby Prabhakar 786.51 Pain Precordial 11:06a gloria Maldonado II, M.D. Hospitalists 998.11 Complication Other Hemorrhage Complicating A Procedure 786.05 Shortness Of Breath 458.9 Hypotension Unspec Office Visit 04/14/2012 11:13a [facility] Mayur Cruz 786.05 Shortness Of Glynn Espinoza Breath 794.31 Electrocardiogram (ECG) (EKG) Abnormal 786.50 Pain Chest Unspec Office Visit 04/14/2012 11:05a [facility] Ciro 786.51 Pain Precordial Assocgloria M.D. Hospitalists 305.1 Tobacco Use Disorder Office Visit 11/11/2011 2:41p [facility] Clarisse 560.9 Intestinal Assoc,gloria Tanner M.D. Obstruction Hospitalists Unspec 305.1 Tobacco Use Disorder 786.51 Pain Precordial Office Visit 11/08/2011 [facility] Jayne Hohn, 560.9 Intestinal 2:40p Assoc,gloria Maki Obstruction Hospitalists Unspec 305.1 Tobacco Use Disorder Office Visit 05/09/2010 9:00a [facility] Mayur Cruz 786.50 Pain Chest Glynn Espinoza Unspec 780.2 Syncope & Collapse 794.31 Electrocardiogram (ECG) (EKG) Abnormal Office Visit 10/06/2009 10:20a [facility] Mayur Cruz 786.50 Pain Chest Glynn Espinoza Unspec 794.31 Electrocardiogram (ECG) (EKG) Abnormal Office Visit 08/01/2009 1:00a [facility] Az Hidalgo, 786.50 Pain Chest Assgloria braga M.D. Unspec Hospitalists 780.2 Syncope & Collapse Office Visit 07/31/2009 1:15a [facility] Jayne Burt 786.50 Pain Chest Assgloria braga M.D. Unspec Hospitalists Plan of Treatment Future Appointment(s):05/22/2018 10:30 am - Mayur Espinoza M.D. at [facility]05/04/2018 9:00 am - Peewee Correa M.D. at [facility]
--- OUTSIDE RECORDS SUMMARY | 2018-05-22 09:05 | XMS REPORT | Continuity of Care Document ---
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 Tobacco Use [...] Result H/L Range Note Laboratory test 03/06/2018 [facility] Surgical SEE RESULT [address] [place] [address] [phone] Laboratory test 12/23/2017 [facility] Surgical SEE RESULT [address] [place] [address] [phone] CBC Auto Diff 10/04/2017 [facility] White Blood 8.6 10^3/uL N 3.5-10.[address] [place] [address] [phone] Red Blood Count 4.31 10^6/uL N 4.00-5.40 [...] Cells % 0 Lipid Panel - 10/04/2017 [facility] Creatine 107 U/L N 10-[address] Kinase(CK) [place] [address] [phone] Comp Metabolic 10/04/2017 [facility] Sodium 142 N 135-[address] mmol/[place] [address] [phone] Chloride 106 mmol/L N 101-111 Co2 Carbon [...] 5 mmol/L N 2-11 Lipid Profile 10/04/2017 [facility] Triglycerides 156 mg/dL 4 (Trig/Chol/HDL) [address] [place] [address] [phone] Cholesterol 141 mg/dL 5 HDL Cholesterol 33.4 mg/dL 6 LDL Cholesterol 76 mg/dL 7 Lipid Panel - 10/29/2016 [facility] Creatine 95 U/L N 10-223 8, [address] Kinase(CK) [place] [address] [phone] Comp Metabolic 10/29/2016 [facility] Sodium 140 N 133-[address] mmol/[place] [address] [phone] Potassium 4.8 mmol/L N 3.5-5.0 Chloride 106 [...] 121.1 N >60 10 Lipid Profile 10/29/2016 [facility] Triglycerides 94 mg/dL N 11 (Trig/Chol/HDL) [address] [place] [address] [phone] Cholesterol 138 mg/dL N 12 HDL Cholesterol 36.4 mg/dL N 13 LDL Cholesterol 83 mg/dL N 14 CBC Auto Diff 08/12/2016 [facility] White Blood 7.3 10^3/uL N 3.5-10.[address] [place] [address] [phone] Red Blood Count 4.41 10^6/uL N 4.0-5.4 [...] % 0 N Lipid Panel - 08/12/2016 [facility] Creatine 447 U/L High 10- 223 [address] Kinase [place], [place] [id number] [phone] Comp Metabolic 08/12/2016 [facility] Sodium 139 N 133-[address] mmol/L [place], [place] [id number] [phone] Potassium 4.8 mmol/L N 3.5-5.0 Chloride 106 [...] 140.7 N >60 16 Lipid Profile 08/12/2016 [facility] Triglycerides 94 mg/dL N 17 (Trig/Chol/HDL) [address] [place] [address] [phone] Cholesterol 118 mg/dL N 18 HDL Cholesterol 34.4 mg/dL N 19 LDL Cholesterol 65 mg/dL N 20 Lipid Panel - 06/14/2013 [facility] Creatine Kinase 126 U/L N 10-223 [address] [place] [address] [phone] Comp Metabolic 06/14/2013 [facility] Sodium 139 N 133-[address] mmol/[place] [address] [phone] Potassium 4.5 mmol/L N 3.7-5.6 Chloride 106 [...] N >60 22 CBC Auto Diff 06/14/2013 [facility] White Blood 10.0 10^3/uL N 4.8-10.[address] [place] [address] [phone] Red Blood Count 4.32 10^6/uL N 4.0-5.4 [...] Cells % 0.1 N Lipid Profile 06/14/2013 [facility] Triglycerides 50 mg/dL N 23 (Trig/Chol/HDL) [address] [place] [address] [phone] Cholesterol 124 mg/dL N 24 HDL Cholesterol 36.8 mg/dL N 25 LDL Cholesterol 77 mg/dL N 26 Lipid Profile 08/03/2012 [facility] Triglycerides 67 mg/dL 40 -200 (Trig/Chol/HDL) [address] [place] [address] [phone] Cholesterol 109 mg/dL Less than 200 HDL Cholesterol 33 mg/dL Low 40-60 27 Cholesterol/HDL Ratio 3.3 Average 1-4.44 LDL Cholesterol 62.6 Less Than 100 28 Comp Metabolic Panel 08/03/2012 [facility] Sodium 139 mmol/L 133-145 [address] [place] [address] [phone] Potassium 4.6 mmol/L 3.5-5.0 Chloride 105 mmol/L [...] Egfr 130.6 >60 29 Lipid Panel 08/03/2012 [facility] Creatine Kinase 318 U/L High 0-200 30 - J[place] [address] [place] [address] [phone] CBC Auto 06/01/2012 [facility] White Blood 10.5 4.8-10.[address] Count 10^3/[place] [address] [phone] Red Blood Count 4.27 10^6/uL 4.0-5.4 Hemoglobin [...] Blood Cells % 0 Laboratory test 06/01/2012 [facility] Creatine Kinase 132 U/L 0-200 31 finding [address] [place] [address] [phone] Lipid Profile 06/01/2012 [facility] Triglycerides 56 mg/dL 40 -200 (Trig/Chol/HDL) [address] [place] [address] [phone] Cholesterol 126 mg/dL Less than 200 HDL Cholesterol 35 mg/dL Low 40-60 32 Cholesterol/HDL Ratio 3.6 Average 1-4.44 LDL Cholesterol 79.8 mg/dL Less Than 100 33 Comp Metabolic Panel 06/01/2012 [facility] Sodium 141 mmol/L 133-145 [address] [place] [address] [phone] Potassium 4.4 mmol/L 3.5-5.0 Chloride 107 mmol/L [...] [address]: Ernie Zavala MD Acct: [id number] Unit: [id number] AGE: 57 Location: ENDO Re03/06/18 SEX: M Status: DEP REF SPEC: [id number] GILBERT: 03/06/18- DR: Ernie Zavala MD REQ: [id number] RECD: 03/06/18 STATUS: CLEOPATRA DUNCAN DR: Kurtis [...] CONTINUED ON NEXT PAGE DEPARTMENT OF PATHOLOGY, [address] [place] [address] Erich Serna M.D. Director [facility] # [id number] RUN DATE: 03/10/18 [facility] LAB LIVE PAGE 2 Patient: Derrick BEJARANO [id number] (Continued) POST-OPERATIVE DIAGNOSIS (Continued) POST-OPERATIVE DIAGNOSIS Colonoscopy: [...] 1026 END OF REPORT DEPARTMENT OF PATHOLOGY, [address] [place] [address] Erich Serna M.D. Director [facility] # [id number] 2 SEE RESULT BELOW Name: Derrick BEJARANO : [address]: Antoine Del Cid MD Acct: [id number] Unit: [id number] AGE: 57 Location: [place] [address] Re12/22/17 Dis: 12/24/17 SEX: M Status: DIS Chris SPEC: [id number] GILBERT: 12/23/[address] [facility] [address]: Ernie Zavala MD REQ: [id number] RECD: 12/23/17 STATUS: CLEOPATRA DUNCAN DR: Clarisse [...] 1040 END OF REPORT DEPARTMENT OF PATHOLOGY, [address] [place] [address] Erich Serna M.D. Director [facility] # [id number] 3 Because ethnic data is not always [...] dialysis) Procedures Date Code Description Status 03/10/2018 97472 EKG Tracing & Interpretation Completed 03/06/2018 57023906 Colonoscopy Completed 03/06/2018 21774 Colonoscopy Flexible Remove Tumor/Polyp/Lesion Snare Completed Technique 12/23/2017 66024 Endoscopy Upper GI Biopsy Completed 05/06/2017 29545 EKG Tracing & Interpretation Completed 12/18/2016 32566 Treadmill Interp/Report Only Completed 12/18/2016 38994 Stress Test Supervsn W/Out I/R Completed 07/09/2016 58612 EKG Tracing & Interpretation Completed 05/08/2016 41952 EKG, Interpretation Only Completed 05/08/2016 52546 Treadmill Interp/Report Only Completed 05/08/2016 40713 Stress Test Supervsn W/Out I/R Completed 08/07/2015 93521 EKG Tracing & Interpretation Completed 11/03/2014 22038 ECHO Transthoracic, Real-Time 2D With Doppler And Color Completed Flow 10/18/2014 22065 EKG Tracing & Interpretation Completed 07/04/2014 54891 Repair Hernia Inguinal > 5Yrs, Reducible Completed 07/04/2013 93551 Stress Test Supervsn W/Out I/R Completed 07/04/2013 05524 Treadmill Interp/Report Only Completed 06/03/2013 40438 EKG Tracing & Interpretation Completed 12/01/2012 21495 EKG, Interpretation Only Completed 09/07/2012 88003 EKG Tracing & Interpretation Completed 07/01/2012 02448 Treadmill Interp/Report Only Completed 07/01/2012 03872 Stress Test Supervsn W/Out I/R Completed 05/18/2012 02068 EKG Tracing & Interpretation Completed 05/12/2012 66595 Treadmill Interp/Report Only Completed 05/12/2012 35028 Stress Test Supervsn W/Out I/R Completed 04/22/2012 46275 EKG Tracing & Interpretation Completed 04/15/2012 78576 Left Heart Cath. Incl S/I Coronaries, Angio S/I V Gram Completed If Done 04/15/2012 17403 EKG, Interpretation Only Completed 04/14/2012 98804 Color Flow Doppler/Interp & Reprt Completed 04/14/2012 72696 Pulse Wave/Continuous-Interp.RPT Completed 04/14/2012 34117 ECHO Transthorasic Realtime 2D W Doppler & Color Flow Completed Hosp 04/14/2012 29183 EKG, Interpretation Only Completed 11/10/2011 93576 EKG, Interpretation Only Completed 11/10/2011 44407 EKG, Interpretation Only Completed 05/09/2010 24726 EKG Tracing & Interpretation Completed 10/06/2009 09575 EKG Tracing & Interpretation Completed 08/01/2009 35900 Stress ECHO Interpretation/Report Hospital Completed 08/01/2009 73758 Treadmill Interp/Report Only Completed 08/01/2009 91450 Stress Test Supervsn W/Out I/R Completed 09/06/2008 70560 Treadmill Interp/Report Only Completed 09/06/2008 11421 Stress Test Supervsn W/Out I/R Completed Encounters Type Date Location Provider Dx Diagnosis Office Visit 04/08/2018 [facility] Nurse Visit cc I10 Essential ( primary) 9:00a hypertension Office Visit 03/10/2018 [facility] Mayur Cruz R07.9 Chest pain, 9:20a Glynn Espinoza unspecified I25.10 Athscl heart disease of [place] coronary artery w/o ang pctrs I10 Essential (primary) hypertension E78.00 Pure hypercholesterolemia, unspecified Office 01/28/2018 [facility] Ernie Simpson K92.2 Gastrointestinal Visit 8:45a MD Lucas hemorrhage, unspecified K58.1 Irritable bowel syndrome with constipation Office Visit 12/24/2017 [facility] R10.9 Unspecified 8:16a 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,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, 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 abdominal pain Hospitalists D64.9 Anemia, unspecified R07.9 Chest pain, unspecified Office Visit 12/23/2017 [facility] Gastroenterology Ernie Simpson R10.30 Lower abdominal 7:00a MD Lucas pain, unspecified K21.9 Gastro-esophageal reflux disease without esophagitis Office Visit 12/22/2017 [facility] R10.9 Unspecified 8:12a Assoc,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, 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 abdominal pain Hospitalists R07.9 Chest pain, unspecified D64.9 Anemia, unspecified I10 Essential (primary) hypertension Office Visit 05/06/2017 11:00a [facility] Mayur Cruz F95.2 Shericeette's Glynn Espinoza disorder R07.89 Other chest pain I10 Essential (primary) hypertension E78.2 Mixed hyperlipidemia I25.10 Athscl heart disease of [place] coronary artery w/o ang pctrs Office Visit 02/12/2017 8:45a [facility] Peewee Wharton F95.2 Tourette's Services [facility] Glynn Correa disorder F51.01 Primary insomnia [facility] R07.89 Other chest pain 2:56p gloria Maldonado M.D. Hospitalists [facility], R07.89 Other chest pain 2:56p gloria Maldonado M.D. Hospitalists Office Visit 09/03/2016 [facility] Jeanne Owusu, I10 Essential 10:00a [facility] PA (primary) hypertension E78.2 Mixed hyperlipidemia I25.10 Athscl heart disease of [place] coronary artery w/o ang pctrs Office Visit 07/09/2016 9:20a [facility] Mayur Cruz R07.9 Chest painOlga M.D. unspecified F95.2 Tourette's disorder E78.2 Mixed hyperlipidemia I10 Essential (primary) hypertension I25.10 Athscl heart disease of [place] coronary artery w/o ang pctrs Office Visit 02/14/2016 [facility] Peewee Owens95.2 Tourette's 9:45a Clinic Glynn Correa disorder Office Visit 12/27/2015 [facility] Z11.1 Encounter for 8:00a Jacqueline, screening for N.P. respiratory tuberculosis Z02.1 Encounter for pre-employment examination Office Visit 08/07/2015 1:00p [facility] Mayur Cruz R07.9 Chest painOlga M.D. unspecified E78.2 Mixed hyperlipidemia F95.2 Tourette's disorder I10 Essential (primary) hypertension I25.10 Athscl heart disease of [place] coronary artery w/o ang pctrs Office Visit 01/10/2015 [facility] F95.2 Tourette's disorder 8:45a Neurologic Glynn Correa Services [facility] Office Visit 10/18/2014 Horacio Cruz 272.2 Hyperlipidemia Mixed 9:00a Cardiology Glynn Espinoza 401.9 Hypertension Unspec 414.01 Coronary Atherosclerosis Tanana 786.50 Pain Chest Unspec Office Visit 08/24/2014 10:00a Neurosurgery Peewee Person, 805.4 FX Lumbar Services [facility] Glynn Closed W/O Spinal Cord Injury Office Visit 01/12/2014 9:00a [facility] Peewee S. 307.23 Tourette' s Services [facility] Glynn Correa Disorder Office Visit 12/01/2013 10:30a Neurosurgery Peewee Person, 805.4 FX Lumbar Services Of Business Case Analyst M.D. Closed W/O Spinal Cord Injury Office Visit 09/20/2013 10:00a Neurosurgery Peewee Person, 805.4 FX [facility] Of Business Case Analyst M.D. Closed W/O Spinal Cord Injury Office Visit 08/23/2013 10:15a Neurosurgery Peewee Person, 805.4 FX [facility] Of Business Case Analyst M.D. Closed W/O Spinal Cord Injury Office Visit 07/26/2013 10:45a Neurosurgery Peewee Person, 805.4 FX [facility] Of Business Case Analyst M.D. Closed W/O Spinal Cord Injury Office Visit 07/12/2013 3:15p Neurosurgery Peewee Person, 805.4 FX [facility]bar Services Of Business Case Analyst M.D. Closed W/O Spinal Cord Injury Office Visit 07/04/2013 4:23p [facility] Vince Ch, 786.50 Pain Chest Assoc,gloria Maki Unspec Hospitalists 414.01 Coronary Atherosclerosis Tanana 401.9 Hypertension Unspec 272.2 Hyperlipidemia Mixed Office Visit 07/03/2013 4:22p [facility] Vince Ch, 786.50 Pain Chest Assoc,gloria Maki Unspec Hospitalists 414.01 Coronary Atherosclerosis Tanana 401.9 Hypertension Unspec 272.2 Hyperlipidemia Mixed Office Visit 06/03/2013 10:40a [facility] Mayur Cruz 786.59 Pain Chest Glynn Espinoza Other 307.23 Tourette's Disorder 414.01 Coronary Atherosclerosis Tanana 305.1 Tobacco Use Disorder 272.0 Hypercholesterolemia Pure Office Visit 12/29/2012 8:30a [place] [facility] Peewee Wharton 307.23 Tourette' s Services [facility] Glynn Correa Disorder Office Visit 12/01/2012 10:55a [facility] Peewee Bejarano 786.59 Pain Chest Other Assoc,gloria Ta M.D. Hospitalists 414.01 Coronary Atherosclerosis Tanana 729.5 Pain In Limb 305.1 Tobacco Use Disorder Office Visit 11/30/2012 10:55a [facility] Rupal Hoskins, 729.5 Pain In Limb Assoc, Hospitalists N.P. 414.01 Coronary Atherosclerosis Tanana 786.59 Pain Chest Other 305.1 Tobacco Use Disorder Office Visit 09/07/2012 3:20p [facility] Mayur Cruz 786.50 Pain Chest Glynn Espinoza Unspec 414.01 Coronary Atherosclerosis Tanana 401.1 Hypertension Benign Office Visit 07/01/2012 12:30p [facility] Mayur Cruz 786.50 Pain Chest Glynn Espinoza Unspec 414.01 Coronary Atherosclerosis Tanana Office Visit 05/18/2012 11:40a [facility] Mayur Cruz 401.1 Hypertension Glynn Espinoza Benign 786.05 Shortness Of Breath 414.01 Coronary Atherosclerosis [place] Office Visit 05/12/2012 [place] Mayur Cruz 414.01 Coronary 9:30a Cardiology Glynn Espinoza Atherosclerosis Tanana 401.1 Hypertension Benign 786.50 Pain Chest Unspec Office Visit 04/29/2012 [facility] Luís Villegas, 414.9 Ischemic Heart 4:00p Of Business Case [facility]st [facility], [facility] Disease Chronic Unspec Office Visit 04/22/2012 [facility] Luís Villegas, 414.9 Ischemic Heart 3:30p Of Business Case Analyst [facility], [facility] Disease Chronic Unspec Office Visit 04/16/2012 [facility] Kirby Prabhakar 786.51 Pain Precordial 11:06a gloria Maldonado II, M.D. Hospitalists 786.05 Shortness Of Breath 998.11 Complication Other Hemorrhage Complicating A Procedure 458.9 Hypotension Unspec Office Visit 04/15/2012 [facility] Kirby Prabhakar 786.51 Pain Precordial 11:06a gloria Maldonado II, M.D. Hospitalists 998.11 Complication Other Hemorrhage Complicating A Procedure 786.05 Shortness Of Breath 458.9 Hypotension Unspec Office Visit 04/14/2012 11:13a [facility] Mayur Cruz 786.05 Shortness Of Glynn Espinoza Breath 794.31 Electrocardiogram (ECG) (EKG) Abnormal 786.50 Pain Chest Unspec Office Visit 04/14/2012 11:05a [facility] Ciro 786.51 Pain Precordial Assocgloria M.D. Hospitalists 305.1 Tobacco Use Disorder Office Visit 11/11/2011 2:41p [facility] Clarisse 560.9 Intestinal Assoc,gloria Tanner M.D. Obstruction Hospitalists Unspec 305.1 Tobacco Use Disorder 786.51 Pain Precordial Office Visit 11/08/2011 [facility] Jayne Carmel, 560.9 Intestinal 2:40p Assoc,gloria Maki Obstruction Hospitalists Unspec 305.1 Tobacco Use Disorder Office Visit 05/09/2010 9:00a [facility] Mayur Cruz 786.50 Pain Chest Glynn Espinoza Unspec 780.2 Syncope & Collapse 794.31 Electrocardiogram (ECG) (EKG) Abnormal Office Visit 10/06/2009 10:20a [facility] Mayur Cruz 786.50 Pain Chest Glynn Espinoza Unspec 794.31 Electrocardiogram (ECG) (EKG) Abnormal Office Visit 08/01/2009 1:00a [facility] Az Hidalgo, 786.50 Pain Chest Assgloria brgaa M.D. Unspec Hospitalists 780.2 Syncope & Collapse Office Visit 07/31/2009 1:15a [facility] Jayne Burt 786.50 Pain Chest Assocgloria M.D. Unspec Hospitalists Plan of Treatment Future Appointment(s):05/22/2018 10:30 am - Mayur Espinoza M.D. at [facility]05/06/2018 9:30 am - Rupal Hoskins N.P. at [facility]2018 9:00 am - [facility]
--- OUTSIDE RECORDS SUMMARY | 2018-05-22 09:06 | XMS REPORT | Continuity of Care Document ---
:1960 External Reference #:[id number] Author Name Kostas Hager Care Team Providers Name Role Phone Kurtis yIer MD Primary Care Physician Unavailable Payers Date Identification Numbers Payment Provider Subscriber Policy Number: [id number] [facility] Ppnomi Bejarano PayID: [id number] [address] [address] [place] [address] Advance Directives Description No Information Available Problems Date Description Provider Status Onset: 05/18/2012 Benign essential hypertension Mayur Espinoza M.D. Active Onset: 05/18/2012 Coronary arteriosclerosis Mayur Espinoza M.D. Active Onset: 05/18/2012 Dyspnea Mayur Espinoza M.D. Active Onset: 12/22/2017 Anemia Patricia Mcfarlane NP Active Onset: 12/22/2017 Abdominal pain Patricia Mcfarlane NP Active Onset: 07/12/2013 Closed fracture of lumbar vertebra Peewee Person M.D. Active without spinal cord injury Onset: 06/03/2013 Pure hypercholesterolemia Mayur Espinoza M.D. Active Onset: 06/03/2013 Tobacco user Mayur Espinoza M.D. Active Onset: 06/03/2013 Juan David de la Tourette's syndrome Mayur Espinoza M.D. Active Onset: 06/03/2013 Chest pain Mayur Espinoza M.D. Active Family History Date Family Member(s) Observation Comments General Breast Cancer General Heart Disease General Alcoholism Father due to r/t CAD at () 82 yo-had 3 stents, 5 NC's Mother due to Cancer, Breast () Mother [...] Unknown Marital Status Lives With Occupation 2019 [employer] At 3rd shift since mid Tobacco Use [...] smoker, smokes every day Smoking Status Reviewed: 04/22/18 Patient is a current 1/2 pack per [...] Rupal S. Besylate 19 s every day Gato N.P. Clonidine HCL 02/14/20 Active Tablets 0.1mg 90tab 2 by mouth F95.2 Peewee S. 16 s every morning [place], and 1 every M.D. evening Nitrostat 10/19/19 Active Tablets 0.4mg 25tab one sl q5 min Mayur 15 Sub s up to 3 doses F. as needed Glynn Espinoza Oxycodone-Shin 08/24/19 Active Tablets 5-325mg 60tab 1 po Q6h prn 805.4 Peewee taminophen 14 s pain Glynn Person Atorvastatin 06/04/19 Active Tablets 40mg 30tab 1 by mouth Mayur Calcium 13 s every day FYamini (decreased Olga, 08/26/16) M.DYamini Metoprolol 05/19/19 Active Tablets 25mg 90tab 1/2 by mouth Mayur Tartrate 13 s twice a day Nancy Espinoza M.D. Aspirin Adult 05/19/19 Active Chewtabs 81mg 1 tab po Mayur Low Strength 13 daily Nancy Espinoza M.D. Baclofen Active Tablets 10mg 60tab 1 by mouth Peewee S. 00 s twice a day Glynn Correa Omeprazole Active Capsules 40mg 30cap [address] s every day Ordering Provider Meclizine [...] Tablets 10mg 60tab 2 tab by Peewee SYamini HCL 11 - s mouth every Sunny, 02/24/19 day (pt is M.D. 19 taking 1-20mg tab daily 09/03/16) Aspirin Ec Hx Tablets 81mg 1 po qd Unknown 00 - DR 08/13/20 10 Nicotrol Hx Inhaler 10mg 42uni 1 [...] Peewee S. 00 - s Tablet By Sunny 02/14/20 Mouth Twice A M.DYamini 16 Day Minocycline Hx Capsules 50mg take [...] Available Vital Signs Date Vital Result Comment 04/22/2018 9:54am Heart Rate 60 /min BP [...] [address] [place] [address] [phone] Laboratory test 12/23/2017 [facility] Surgical SEE RESULT [address] Interface [place] [address] [phone] CBC Auto Diff 10/04/2017 [facility] White Blood 8.6 10^3/uL N 3.5-10.[address] [place] [address] [phone] Red Blood Count 4.31 10^6/uL N 4.00-5.40 [...] N 10-[address] Kinase(CK) [place] [address] [phone] Comp Metabolic 10/04/2017 [facility] Sodium 142 N 135-[address] mmol/[place] [address] [phone] Chloride 106 mmol/L N 101-111 Co2 Carbon [...] 156 mg/dL 4 (Trig/Chol/HDL) [address] [place] [address] [phone] Cholesterol 141 mg/dL 5 HDL Cholesterol 33.4 mg/dL 6 LDL Cholesterol 76 mg/dL 7 Lipid Panel - 10/29/2016 [facility] Creatine 95 U/L N 10-223 8, [address] Kinase(CK) [place] [address] [phone] Comp Metabolic 10/29/2016 [facility] Sodium 140 N 133-[address] mmol/[place] [address] [phone] Potassium 4.8 mmol/L N 3.5-5.0 Chloride 106 [...] mg/dL N 11 (Trig/Chol/HDL) [address] [place] [address] [phone] Cholesterol 138 mg/dL N 12 HDL Cholesterol 36.4 mg/dL N 13 LDL Cholesterol 83 mg/dL N 14 CBC Auto Diff 08/12/2016 [facility] White Blood 7.3 10^3/uL N 3.5-10.[address] [place] [address] [phone] Red Blood Count 4.41 10^6/uL N 4.0-5.4 [...] 223 [address] [place] [address] [phone] Comp Metabolic 08/12/2016 [facility] Sodium 139 N 133-[address] mmol/[place] [address] [phone] Potassium 4.8 mmol/L N 3.5-5.0 Chloride 106 [...] 94 mg/dL N 17 (Trig/Chol/HDL) [address] [place] [address] [phone] Cholesterol 118 mg/dL N 18 HDL Cholesterol 34.4 mg/dL N 19 LDL Cholesterol 65 mg/dL N 20 Lipid Panel - 06/14/2013 [facility] Creatine Kinase 126 U/L N 10-223 [address] [place] [address] [phone] Comp Metabolic 06/14/2013 [facility] Sodium 139 N 133-[address] mmol/[place] [address] [phone] Potassium 4.5 mmol/L N 3.7-5.6 Chloride 106 [...] 10^3/uL N 4.8-10.[address] [place] [address] [phone] Red Blood Count 4.32 10^6/uL N 4.0-5.4 [...] Triglycerides 50 mg/dL N 23 (Trig/Chol/HDL) [address] [place] [address] [phone] Cholesterol 124 mg/dL N 24 HDL Cholesterol 36.8 mg/dL N 25 LDL Cholesterol 77 mg/dL N 26 Lipid Profile 08/03/2012 [facility] Triglycerides 67 mg/dL 40 -200 (Trig/Chol/HDL) [address] [place] [address] [phone] Cholesterol 109 mg/dL Less than 200 HDL Cholesterol 33 mg/dL Low 40-60 27 Cholesterol/HDL Ratio 3.3 Average 1-4.44 LDL Cholesterol 62.6 Less Than 100 28 Comp Metabolic Panel 08/03/2012 [facility] Sodium 139 mmol/L 133-145 [address] [place] [address] [phone] Potassium 4.6 mmol/L 3.5-5.0 Chloride 105 mmol/L [...] U/L High 0-200 30 - JFM [address] [place] [address] [phone] CBC Auto 06/01/2012 [facility] White Blood 10.5 4.8-10.[address] Count 10^3/[place] [address] [phone] Red Blood Count 4.27 10^6/uL 4.0-5.4 Hemoglobin [...] Kinase 132 U/L 0-200 31 finding [address] [place] [address] [phone] Lipid Profile 06/01/2012 [facility] Triglycerides 56 mg/dL 40 -200 (Trig/Chol/HDL) [address] [place] [address] [phone] Cholesterol 126 mg/dL Less than 200 HDL Cholesterol 35 mg/dL Low 40-60 32 Cholesterol/HDL Ratio 3.6 Average 1-4.44 LDL Cholesterol 79.8 mg/dL Less Than 100 33 Comp Metabolic Panel 06/01/2012 [facility] Sodium 141 mmol/L 133-145 [address] [place] [address] [phone] Potassium 4.4 mmol/L 3.5-5.0 Chloride 107 mmol/L [...] [address]: Ernie Zavala MD Acct: [id number] Unit: [id number] AGE: 57 Location: ENDO Re03/06/18 SEX: M Status: DEP REF SPEC: [id number] GILBERT: 03/06/18 DR: Ernie Zavala MD REQ: [id number] RECD: 03/06/18 STATUS: CLEOPATRA DUNCAN DR: Kurtis [...] CONTINUED ON NEXT PAGE DEPARTMENT OF PATHOLOGY, [address] [place] [address] Erich Serna M.D. Director [facility] # [id number] RUN DATE: 03/10/18 [facility] LAB LIVE PAGE 2 Patient: Derrick BEJARANO [id number] (Continued) POST-OPERATIVE DIAGNOSIS (Continued) POST-OPERATIVE DIAGNOSIS Colonoscopy: [...] 1026 END OF REPORT DEPARTMENT OF PATHOLOGY, [address] [place] [address] Erich Serna M.D. Director [facility] # [id number] 2 SEE RESULT BELOW Name: Derrick BEJARANO DOB: [address]: Antoine Del Cid MD Acct: [id number] Unit: [id number] AGE: 57 Location: [place] [address] Re12/22/17 Dis: 12/24/17 SEX: M Status: DIS Chris SPEC: [id number] GILBERT: 12/23/[address]: Ernie Zavala MD REQ: [id number] RECD: 12/23/17 STATUS: CLEOPATRA DUNCAN DR: Clarisse [...] 1040 END OF REPORT DEPARTMENT OF PATHOLOGY, [address] [place] [address] Erich Serna M.D. Director [facility] # [id number] 3 Because ethnic data is not always [...] dialysis) Procedures Date Code Description Status 03/10/2018 95686 EKG Tracing & Interpretation Completed 03/06/2018 02783907 Colonoscopy Completed 03/06/2018 22456 Colonoscopy Flexible Remove Tumor/Polyp/Lesion Snare Completed Technique 12/23/2017 52856 Endoscopy Upper GI Biopsy Completed 05/06/2017 73668 EKG Tracing & Interpretation Completed 12/18/2016 98669 Treadmill Interp/Report Only Completed 12/18/2016 24672 Stress Test Supervsn W/Out I/R Completed 07/09/2016 65481 EKG Tracing & Interpretation Completed 05/08/2016 27474 EKG, Interpretation Only Completed 05/08/2016 06410 Treadmill Interp/Report Only Completed 05/08/2016 71502 Stress Test Supervsn W/Out I/R Completed 08/07/2015 87684 EKG Tracing & Interpretation Completed 11/03/2014 41029 ECHO Transthoracic, Real-Time 2D With Doppler And Color Completed Flow 10/18/2014 25042 EKG Tracing & Interpretation Completed 07/04/2014 42223 Repair Hernia Inguinal > 5Yrs, Reducible Completed 07/04/2013 65500 Stress Test Supervsn W/Out I/R Completed 07/04/2013 07587 Treadmill Interp/Report Only Completed 06/03/2013 01981 EKG Tracing & Interpretation Completed 12/01/2012 56091 EKG, Interpretation Only Completed 09/07/2012 20165 EKG Tracing & Interpretation Completed 07/01/2012 76367 Treadmill Interp/Report Only Completed 07/01/2012 88117 Stress Test Supervsn W/Out I/R Completed 05/18/2012 92751 EKG Tracing & Interpretation Completed 05/12/2012 00235 Treadmill Interp/Report Only Completed 05/12/2012 93998 Stress Test Supervsn W/Out I/R Completed 04/22/2012 54051 EKG Tracing & Interpretation Completed 04/15/2012 65784 Left Heart Cath. Incl S/I Coronaries, Angio S/I V Gram Completed If Done 04/15/2012 07591 EKG, Interpretation Only Completed 04/14/2012 63326 Color Flow Doppler/Interp & Reprt Completed 04/14/2012 22374 Pulse Wave/Continuous-Interp.RPT Completed 04/14/2012 21765 ECHO Transthorasic Realtime 2D W Doppler & Color Flow Completed Hosp 04/14/2012 20109 EKG, Interpretation Only Completed 11/10/2011 49894 EKG, Interpretation Only Completed 11/10/2011 93383 EKG, Interpretation Only Completed 05/09/2010 21354 EKG Tracing & Interpretation Completed 10/06/2009 95384 EKG Tracing & Interpretation Completed 08/01/2009 13715 Stress ECHO Interpretation/Report Hospital Completed 08/01/2009 97147 Treadmill Interp/Report Only Completed 08/01/2009 56407 Stress Test Supervsn W/Out I/R Completed 09/06/2008 12492 Treadmill Interp/Report Only Completed 09/06/2008 26629 Stress Test Supervsn W/Out I/R Completed Encounters Type Date Location Provider Dx Diagnosis Office Visit 04/08/2018 [facility] Nurse Visit cc I10 Essential ( primary) 9:00a hypertension Office Visit 03/10/2018 [facility] Mayur Cruz R07.9 Chest pain, 9:20a Glynn Espinoza unspecified I25.10 Athscl heart disease of [place] coronary artery w/o ang pctrs I10 Essential (primary) hypertension E78.00 Pure hypercholesterolemia, unspecified Office 01/28/2018 [facility] Ernie Simpson K92.2 Gastrointestinal Visit 8:45a MD Lucas hemorrhage, unspecified K58.1 Irritable bowel syndrome with constipation Office Visit 12/24/2017 [facility] R10.9 Unspecified 8:16a Assoc,pc Maeve, YACHT CAPTAIN abdominal pain Hospitalists D64.9 Anemia, unspecified R07.9 Chest pain, unspecified Office Visit 12/23/2017 [facility] Ernie Simpson R10.30 Lower abdominal 7:00a MD Lucas pain, unspecified K21.9 Gastro-esophageal reflux disease without esophagitis Office Visit 12/22/2017 [facility] R10.9 Unspecified 8:12a Assoc,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, YACHT CAPTAIN abdominal pain Hospitalists R07.9 Chest pain, unspecified D64.9 Anemia, unspecified I10 Essential (primary) hypertension Office Visit 05/06/2017 11:00a [facility] Mayur Cruz F95.2 Tyreses Glynn Espinoza disorder R07.89 Other chest pain I10 Essential (primary) hypertension E78.2 Mixed hyperlipidemia I25.10 Athscl heart disease of [place] coronary artery w/o ang pctrs Office Visit 02/12/2017 8:45a [facility] Peewee Wharton F95.2 [facility] Glynn Correa disorder F51.01 Primary insomnia Office Visit 12/18/2016 [facility] Vince Ch, R07.89 Other chest pain 2:56p gloria Maldonado M.D. Hospitalists Office Visit 12/17/2016 [facility] Vince Ch, R07.89 Other chest pain 2:56p gloria Maldonado M.D. Hospitalists Office Visit 09/03/2016 [facility] Jeanne Owusu, I10 Essential 10:00a [facility] PA (primary) hypertension E78.2 Mixed hyperlipidemia I25.10 Athscl heart disease of [place] coronary artery w/o ang pctrs Office Visit 07/09/2016 9:20a [facility] Mayur Cruz R07.9 Chest pain, Mauser, M.D. unspecified F95.2 Tourette's disorder E78.2 Mixed hyperlipidemia I10 Essential (primary) hypertension I25.10 Athscl heart disease of [place] coronary artery w/o [facility] pctrs Office Visit 02/14/2016 [facility] Peewee Wharton F95.2 Tourette's 9:45a Clinic Glynn Correa disorder Office Visit 12/27/2015 [facility] Z11.1 Encounter for 8:00a Jacqueline, screening for N.P. respiratory tuberculosis Z02.1 Encounter for pre-employment examination Office Visit 08/07/2015 1:00p [facility] Mayur Cruz R07.9 Chest pain, Glynn Espinoza unspecified E78.2 Mixed hyperlipidemia F95.2 Tourette's disorder I10 Essential (primary) hypertension I25.10 Athscl heart disease of [place] coronary artery [facility] 01/10/2015 [facility] Wharton F95.2 Tourette's disorder 8:45a Neurologic Glynn Correa [facility] Office Visit 10/18/2014 Horacio Cruz 272.2 Hyperlipidemia Mixed 9:00a Cardiology Glynn Espinoza 401.9 Hypertension Unspec 414.01 Coronary Atherosclerosis [place] 786.50 Pain Chest Unspec Office Visit 08/24/2014 10:00a Neurosurgery Peewee Person, 805.4 FX [facility]bar [facility] M.D. Closed W/O Spinal Cord Injury Office Visit 01/12/2014 9:00a [facility] Peewee Wharton 307.23 Tou[facility]' s [facility] Glynn Correa Disorder Office Visit 12/01/2013 10:30a Neurosurgery Peewee Person 805.4 [facility] M.D. Closed W/O Spinal Cord Injury Office Visit 09/20/2013 10:00a Neurosurgery Jose Antonio Ramsey5.4 [facility] M.D. Closed W/O Spinal Cord Injury Office Visit 08/23/2013 10:15a Neurosurgery Peewee Person 805.4 [facility] M.D. Closed W/O Spinal Cord Injury Office Visit 07/26/2013 10:45a Neurosurgery Peewee Naya, 805.4 [facility] Argenis.DYamini Closed W/O Spinal Cord Injury Office Visit 07/12/2013 3:15p Neurosurgery Peewee Person, 805.4 [facility] Argenis.DYamini Closed W/O Spinal Cord Injury Office Visit 07/04/2013 4:23p [facility] Vince Ch, 786.50 Pain Chest Assoc,gloria Maki Unspec Hospitalists 414.01 Coronary Atherosclerosis [place] 401.9 Hypertension Unspec 272.2 Hyperlipidemia Mixed Office Visit 07/03/2013 4:22p [facility], 786.50 Pain Chest Assoc,gloria Maki Unspec Hospitalists 414.01 Coronary Atherosclerosis [place] 401.9 Hypertension Unspec 272.2 Hyperlipidemia Mixed Office Visit 06/03/2013 10:40a [facility] Mayur Cruz 786.59 Pain Chest Glynn Espinoza Other 307.23 Tourette's Disorder 414.01 Coronary Atherosclerosis [place] 305.1 Tobacco Use Disorder 272.0 Hypercholesterolemia Pure Office Visit 12/29/2012 8:30a [facility] Peewee Wharton 307.23 [facility]' s [facility] Glynn Correa Disorder Office Visit 12/01/2012 10:55a [facility] Peewee Bejarano 786.59 Pain Chest Other Assoc, Glynn Ta Hospitalists 414.01 Coronary Atherosclerosis [place] 729.5 Pain In Limb 305.1 Tobacco Use Disorder Office Visit 11/30/2012 10:55a [facility] Rupal Hoskins, 729.5 Pain In Limb Assoc, Hospitalists N.P. 414.01 Coronary Atherosclerosis [place] 786.59 Pain Chest Other 305.1 Tobacco Use Disorder Office Visit 09/07/2012 3:20p [facility] Mayur Cruz 786.50 Pain Chest Glynn Espinoza Unspec 414.01 Coronary Atherosclerosis [place] 401.1 Hypertension Benign Office Visit 07/01/2012 12:30p [facility] Mayur Cruz 786.50 Pain Chest Glynn Espinoza Unspec 414.01 Coronary Atherosclerosis [place] Office Visit 05/18/2012 11:40a [facility] Mayur Cruz 401.1 Hypertension Glynn Espinoza Benign 786.05 Shortness Of Breath 414.01 Coronary Atherosclerosis [place] Office Visit 05/12/2012 [facility] Mayur Cruz 414.01 Coronary 9:30a Cardiology Glynn Espinoza Atherosclerosis [place] 401.1 Hypertension Benign 786.50 Pain Chest Unspec Office Visit 04/29/2012 [facility] Luís Villegas, 414.9 Ischemic Heart 4:00p [facility] Disease Chronic Unspec Office Visit 04/22/2012 [facility] Luís Villegas, 414.9 Ischemic Heart 3:30p [facility], [facility], [facility] Disease Chronic Unspec [facility] Kil[facility] 786.51 Pain Precordial 11:06a Assgloria braga II, M.D. Hospitalists 786.05 Shortness Of Breath 998.11 Complication Other Hemorrhage Complicating A Procedure 458.9 Hypotension Unspec [facility] 786.51 Pain Precordial 11:06a Assgloria braga II, M.D. Hospitalists 998.11 Complication Other Hemorrhage Complicating A Procedure 786.05 Shortness Of Breath 458.9 Hypotension Unspec Office Visit 04/14/2012 11:13a [facility] Mayur Cruz 786.05 Shortness Of Glynn Espinoza Breath 794.31 Electrocardiogram (ECG) (EKG) Abnormal 786.50 Pain Chest Unspec Office Visit 04/14/2012 11:05a [facility] Ciro 786.51 Pain Precordial Assgloria braga M.D. Hospitalists 305.1 Tobacco Use Disorder Office Visit 11/11/2011 2:41p [facility] Clarisse 560.9 Intestinal Assocgloria M.D. Obstruction Hospitalists Unspec 305.1 Tobacco Use Disorder 786.51 Pain Precordial Office Visit 11/08/2011 [facility] Jayne Burt, 560.9 Intestinal 2:40p gloria Maldonado M.D. Obstruction Hospitalists Unspec 305.1 Tobacco Use Disorder Office Visit 05/09/2010 9:00a [facility] Mayur Cruz 786.50 Pain Chest Glynn Espinoza Unspec 780.2 Syncope & Collapse 794.31 Electrocardiogram (ECG) (EKG) Abnormal Office Visit 10/06/2009 10:20a [facility] Mayur Cruz 786.50 Pain Chest Glynn Espinoza Unspec 794.31 Electrocardiogram (ECG) (EKG) Abnormal Office Visit 08/01/2009 1:00a [facility] Az Hidalgo, 786.50 Pain Chest Assoc,gloria Maki Unspec Hospitalists 780.2 Syncope & Collapse Office Visit 07/31/2009 1:15a [facility] Jayne Burt, 786.50 Pain Chest Assoc,gloria Maki Unspec Hospitalists Plan of Treatment Future Appointment(s):05/22/2018 10:30 am - Mayur Espinoza M.D. at [facility] Voatuhgcnx73/13/2019 9:30 am - Rupal Hoskins, N.P. at [facility] Fdqazvbgmf03/28/ 2019 9:15 am - Ernie Zavala MD at [facility] Aieudybdcmqrlbdp25/11/2019 9:00 am - Peewee Correa M.D. at [facility] Tvcoso2504/22/2018 - Rupal Hoskins N.P.I10 Essential (primary) hypertensionNew Medication:Amlodipine Besylate 5 mg - 1 by mouth every dayFollow up:2 weeks check BP OV Rupal 02/2019 OV JFMRecommendations:Go home and take 5mg of amlodipine Tomorrow start taking 5mg amlodipine daily Call tomorrow afternoon with BP readings.R07.9 Chest pain, unspecifiedNew Orders:Stress Test, Pharmacologic Nuclear (Lexiscan), Scheduled: 05/22/18I25.10 Atherosclerotic heart disease of [place] coronary artery withRecommendations:check lipids in 07/20181558Q39.00 Pure hypercholesterolemia, unspecified
[2018-05-22 09:09] LABS: ABS Basophils 0 10^3/ul (0-0.2); ABS Eosinophils 0.2 10^3/ul (0-0.6); ABS Lymphocytes 1.6 10^3/ul (1.0-4.8); ABS Monocytes 0.6 10^3/ul (0-0.8); ABS Neutrophils 5.5 10^3/ul (1.5-7.7); ABS Nucleated RBC 0 10^3/ul; Eosinophil % 2.6 %; Hematocrit 41 % (36-46); Hemoglobin 13.9 g/dL (14.0-18.0); Lymphocyte % 19.7 %; Mean Corpuscular HGB Conc 34 g/dL (31-36); Mean Corpuscular Hemoglobin 30 pg (27-31); Mean Corpuscular Volume 89 fL (80-94); Mean Platelet Volume 7.2 fL (7.4-10.4); Nucleated Red Blood Cells % 0.1; Platelet Count 299 10^3/uL (150-450); Red Blood Count 4.63 10^6 /uL (4.18-5.48); Red Cell Distribution Width 14 % (10.5-15); White Blood Count 7.9 10^3/uL (3.5-10.8)
[2018-05-22 09:31] LABS: Albumin/Globulin Ratio 1.3 (1-3); BUN/Creatinine Ratio 17.1 (8-20); Calcium 9.6 mg/dL (8.6-10.3); EGFR African American 116.8 (>60); EGFR Non-African American 96.5 (>60); Globulin 3.1 g/dL (2-4); Potassium 4.5 mmol/L (3.5-5.0); Total Bilirubin 0.5 mg/dL (0.2-1.0); Total Protein 7.1 g/dL (6.4-8.9)
[2018-05-22 09:35] LABS: CKMB ng/mL 3.8 ng/mL (0.6-6.3)
--- NOTE | 2018-05-22 09:37 | ED ---
HPI Chest Pain - HPI Summary HPI Summary: Pt is a 57 y/o M presenting to the ED with a chief complaint of chest pain onset this morning around 0700. He was in [facility] [place] cardiac stress test which he has had done before when the chest pain came on suddenly, and it has been intermittent since. It bounces between a 2 and 5 out of 10, and the pain does not radiate. He has baseline back pain, and reports associated sob. Pt denies any fever, chills, erythema of eyes, sore throat, cough, abdominal pain, N/V, dysuria, hematuria, myalgia, edema, rash, or dizziness. - History of Current Complaint Chief Complaint: EDChestPainROMI Time Seen by Provider: 05/22/18 08:53 Hx Obtained From: Patient Onset/Duration: Started Hours Ago, Still Present Timing: Constant, Lasting Hours Initial Severity: Moderate Current Severity: Moderate Pain Intensity: 5 Pain Scale Used: 0-10 Numeric Chest Pain Location: Left Lateral Chest Pain Radiates: No Character: Other: - pt did not give descriptors Aggravating Factor(s): Nothing Alleviating Factor(s): Spontaneous Resolution Associated Signs and Symptoms: Positive: Chest Pain. Negative: Dizziness, Shortness of Breath, Fever, Chills, Nausea, Cough, Abdominal Pain, Vomiting, Other: - urinary symptoms - Additional Pertinent History Primary Care Physician: NICOLE - Allergy/Home Medications Allergies/Adverse Reactions: Allergies Allergy/AdvReac Type Severity Reaction Status Date / Time orange juice Allergy Severe Anaphylatic Verified 05/22/18 08:49 Shock aspirin Allergy Intermediate GI Upset Verified 05/22/18 08:49 ibuprofen Allergy Intermediate GI Upset Verified 05/22/18 08:49 latex Allergy Intermediate Rash Verified 05/22/18 08:49 ciprofloxacin [From Cipro] Allergy Unknown Verified 05/22/18 08:49 Reaction Details codeine Allergy Unknown Verified 05/22/18 08:49 Reaction Details metronidazole [From Flagyl] Allergy Unknown Verified 05/22/18 08:49 Reaction Details apple juice Allergy Severe Anaphylatic Uncoded 01/30/18 13:08 Shock raw fruits Allergy Severe Anaphylatic Uncoded 01/30/18 13:08 Shock 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, prefers not to take PMH/Surg Hx/FS Hx/Imm Hx Previously Healthy: No Endocrine/Hematology History: Reports: Hx Anticoagulant Therapy - ASA, Other Endocrine/Hematological Disorders - Hypoglycemia Denies: Hx Blood Disorders, Hx Bone Marrow Disease, Hx Diabetes, Hx Systemic Lupus Erythematosus, Hx Sickle Cell Disease, Hx Thyroid Disease, Hx Anemia, Hx Unexplained Bleeding Cardiovascular History: Reports: Hx Angina, Hx Coronary Artery Disease - stents placed - 2011, Hx Hypercholesterolemia, Hx Hypertension, Hx Myocardial Infarction Denies: Hx Aneurysm, Hx Angioplasty, Hx Auto Implanted Cardiovert Defib, Hx Cardiac Arrest, Hx Cardiomegaly, Hx Congenital Heart Disease, Hx Congestive Heart Failure, Hx Deep Vein Thrombosis, Hx Hypotension, Hx Pacemaker/ICD, Hx Peripheral Vascular Disease, Hx Rheumatic Fever, Hx Syncope, Hx Valvular Heart Disease Comment Only: Other Cardiovascular Problems/Disorders - FOLLOWED BY DR MANDEL Respiratory History: Reports: Hx Chronic Bronchitis, Hx Chronic Obstructive Pulmonary Disease (COPD), Other Respiratory Problems/Disorders - current smoker Denies: Hx Asthma, Hx Cystic Fibrosis, Hx Lung Cancer, Hx Pleural Effusion, Hx Pneumonia, Hx Pulmonary Edema, Hx Pulmonary Embolism, Hx Seasonal Allergies, Hx Sleep Apnea GI History: Reports: Hx Gastroesophageal Reflux Disease - ON DAILY OMEPRAZOLE, Hx Gastrointestinal Bleed, Other GI Disorders - Hx OF ULCERATIVE COLITIS Denies: Hx Cirrhosis, Hx Crohn's Disease, Hx Diverticulosis, Hx Gall Bladder Disease, Hx Hiatal Hernia, Hx Irritable Bowel, Hx Jaundice, Hx Obstructive Bowel , Hx Ileostomy, Hx Pyloric Stenosis, Hx Ulcer History: Denies: Hx Renal Disease Musculoskeletal History: Reports: Hx Arthritis - RIGHT HAND, Hx Orthopedic Injury - R hand, L foot, Hx Tendonitis - BOTH ARMS, Other Musculoskeletal History - L foot drop toe surgery; carpal tunnel relase R hand Sensory History: Reports: Hx Contacts or Glasses, Hx Vision Problem Denies: Hx Hearing Aid Opthamlomology History: Reports: Hx Contacts or Glasses, Hx Vision Problem Neurological History: Reports: Other Neuro Impairments/Disorders - TOURETTE'S SYNDROME, ON DAILY MEDS Denies: Hx Seizures Psychiatric History: Reports: Other Psychiatric Issues/Disorders - Tourette's Denies: Hx Substance Abuse - Surgical History Surgery Procedure, Year, and Place: 1998 LEFT FOOT [facility]. 2012 CARDIAC CATH [facility] [place] Hx Anesthesia Reactions: No - Immunization History Date of Tetanus Vaccine: Unknown Date of Influenza Vaccine: None, doesn't get the flu vaccine Infectious Disease History: No Infectious Disease History: Denies: Hx Clostridium Difficile, Hx Hepatitis, Hx Human Immunodeficiency Virus (HIV), Hx of Known/Suspected MRSA, Hx Shingles, Hx Tuberculosis, History Other Infectious Disease, Traveled Outside the [place] in Last 30 Days - Family History Known Family History: Positive: Cardiac Disease - paternal, Other - [place] - maternal - Social History Alcohol Use: None Alcohol Amount: former alcoholic Hx Substance Use: Yes - not currently Substance Use Type: Reports: None Substance Use Comment - Amount & Last Used: Former drug user Hx Tobacco Use: Yes Smoking Status (MU): Heavy Every Day Tobacco Smoker Type: Cigarettes Amount Used/How Often: CURRENT 1/2PPD; PAST 3PPD; HAS SMOKED 42 YRS Length of Time of Smoking/Using Tobacco: 42 YEARS Have You Smoked in the Last Year: Yes Review of Systems Negative: Fever, Chills Negative: Erythema Negative: Sore Throat Positive: Chest Pain Positive: Shortness Of Breath. Negative: Cough Negative: Abdominal Pain, Vomiting, Nausea Negative: dysuria, hematuria Negative: Myalgia, Edema Negative: Rash Neurological: Negative - dizziness All Other Systems Reviewed And Are Negative: Yes Physical Exam - Summary Physical Exam Summary: Constitutional: Well-developed, Well-nourished, Alert. (-) Distressed Skin: Warm, Dry HENT: Normocephalic; Atraumatic. Edentulous Eyes: Conjunctiva normal Neck: Musculoskeletal ROM normal neck. (-) JVD, (-) Stridor, (-) Tracheal deviation Cardio: Rhythm regular, rate normal, Heart sounds normal; Intact distal pulses; The pedal pulses are 2+ and symmetric. Radial pulses are 2+ and symmetric. (-) Murmur Pulmonary/Chest wall: Effort normal. (-) Respiratory distress, (-) Wheezes, (-) Rales Abd: Soft, (-) tenderness, (-) Distension, (-) Guarding, (-) Rebound Musculoskeletal: (-) Edema Lymph: (-) Cervical adenopathy Neuro: Alert, Oriented x3 Psych: Mood and affect Normal Triage Information Reviewed: Yes Vital Signs On Initial Exam: Initial Vitals Temp Pulse Resp BP Pulse Ox 97.1 F 61 20 162/88 100 05/22/18 08:44 05/22/18 08:44 05/22/18 08:44 05/22/18 08:44 05/22/18 08:44 Vital Signs Reviewed: Yes Diagnostics - Vital Signs Vital Signs Temp Pulse Resp BP Pulse Ox 05/22/18 09:05 99 05/22/18 09:00 61 100 05/22/18 08:51 63 148/99 100 05/22/18 08:50 65 100 05/22/18 08:44 97.1 F 61 20 162/88 100 - Laboratory Lab Results: Lab Results 05/22/18 05/22/18 05/22/18 Range/Units 08:54 08:54 08:54 WBC 7.9 (3.5-10.8) 10^3/uL RBC 4.63 (4.18-5.48) 10^6 /uL Hgb 13.9 L (14.0-18.0) g/dL Hct 41 (36-46) % MCV 89 (80-94) fL MCH 30 (27-31) pg MCHC 34 (31-36) g/dL RDW 14 (10.5-15) % Plt Count 299 (150-450) 10^3/uL MPV 7.2 L (7.4-10.4) fL Neut % (Auto) 69.5 % Lymph % (Auto) 19.7 % [place] % (Auto) 7.9 % Eos % (Auto) 2.6 % Baso % (Auto) 0.3 % Absolute Neuts (auto) 5.5 (1.5-7.7) 10^3/ul Absolute Lymphs (auto) 1.6 (1.0-4.8) 10^3/ul Absolute Monos (auto) 0.6 (0-0.8) 10^3/ul Absolute Eos (auto) 0.2 (0-0.6) 10^3/ul Absolute Basos (auto) 0 (0-0.2) 10^3/ul Absolute Nucleated RBC 0 10^3/ul Nucleated RBC % 0.1 APTT 31.0 (26.0-36.3) seconds Sodium 138 (135-145) mmol/L Potassium 4.5 (3.5-5.0) mmol/L Chloride 105 (101-111) mmol/L Carbon Dioxide 28 (22-32) mmol/L Anion Gap 5 (2-11) mmol/L BUN 14 (6-24) mg/dL Creatinine 0.82 (0.67-1.17) mg/dL Est GFR ( Amer) 116.8 (>60) Est GFR (Non-Af Amer) 96.5 (>60) BUN/Creatinine Ratio 17.1 (8-20) Glucose 86 (70-100) mg/dL Lactic Acid (0.5-2.0) mmol/L Calcium 9.6 (8.6-10.3) mg/dL Total Bilirubin 0.50 (0.2-1.0) mg/dL AST 15 (13-39) U/L ALT 12 (7-52) U/L Alkaline Phosphatase 81 (34-104) U/L Total Creatine Kinase 93 (10-223) U/L CK-MB (CK-2) Pending Troponin I Pending Total Protein 7.1 (6.4-8.9) g/dL Albumin 4.0 (3.2-5.2) g/dL Globulin 3.1 (2-4) g/dL Albumin/Globulin Ratio 1.3 (1-3) 05/22/18 Range/Units 08:54 WBC (3.5-10.8) 10^3/uL RBC (4.18-5.48) 10^6 /uL Hgb (14.0-18.0) g/dL Hct (36-46) % MCV (80-94) fL MCH (27-31) pg MCHC (31-36) g/dL RDW (10.5-15) % Plt Count (150-450) 10^3/uL MPV (7.4-10.4) fL Neut % (Auto) % Lymph % (Auto) % [place] % (Auto) % Eos % (Auto) % Baso % (Auto) % Absolute Neuts (auto) (1.5-7.7) 10^3/ul Absolute Lymphs (auto) (1.0-4.8) 10^3/ul Absolute Monos (auto) (0-0.8) 10^3/ul Absolute Eos (auto) (0-0.6) 10^3/ul Absolute Basos (auto) (0-0.2) 10^3/ul Absolute Nucleated RBC 10^3/ul Nucleated RBC % APTT (26.0-36.3) seconds Sodium (135-145) mmol/L Potassium (3.5-5.0) mmol/L Chloride (101-111) mmol/L Carbon Dioxide (22-32) mmol/L Anion Gap (2-11) mmol/L BUN (6-24) mg/dL Creatinine (0.67-1.17) mg/dL Est GFR ( Amer) (>60) Est GFR (Non-Af Amer) (>60) BUN/Creatinine Ratio (8-20) Glucose (70-100) mg/dL Lactic Acid 0.8 (0.5-2.0) mmol/L Calcium (8.6-10.3) mg/dL Total Bilirubin (0.2-1.0) mg/dL AST (13-39) U/L ALT (7-52) U/L Alkaline Phosphatase (34-104) U/L Total Creatine Kinase (10-223) U/L CK-MB (CK-2) Troponin I Total Protein (6.4-8.9) g/dL Albumin (3.2-5.2) g/dL Globulin (2-4) g/dL Albumin/Globulin Ratio (1-3) Result Diagrams: 05/22/18 08:54 05/22/18 08:54 Lab Statement: Any lab studies that have been ordered have been reviewed, and results considered in the medical decision making process. - Radiology CXR Radiology Interpretation Completed By: Radiologist Summary of Radiographic Findings: LIKELY POOR INSPIRATORY EFFORT WITH CROWDING OF THE VASCULAR MARKINGS. NO PNEUMONIA IS DEFINITIVELY IDENTIFIED. ED physician has reviewed this report. - EKG 0859 Cardiac Rate: NL - 66bpm EKG Rhythm: Sinus Rhythm ST Segment: Non-Specific Ectopy: None EKG Comparison: No Significant Change - from 04/16/18 Summary of EKG Findings: Diffuse minimal ST elevation <1mm. No significant change from prior EKg on 04/16/18. Chest Pain Course/Dx - Course Course Of Treatment: Pt is a 57 y/o M presenting to the ED with a chief complaint of chest pain onset this morning around 0700. It bounces between a 2 and 5 out of 10, and the pain does not radiate. He has baseline back pain, and reports associated sob. Pt denies any fever, chills, erythema of eyes, sore throat, cough, abdominal pain, N/V, dysuria, hematuria, myalgia, edema, rash, or dizziness. An EKG at 0859 shows NSR at 66bpm, and diffuse minimal ST elevation <1mm. No significant change from prior EKG on 04/16/18. CXR shows LIKELY POOR INSPIRATORY EFFORT WITH CROWDING OF THE VASCULAR MARKINGS. NO PNEUMONIA IS DEFINITIVELY IDENTIFIED. Dr. Villalobos accepted the pt to [facility]. The pt is now refusing treatment and would like to be sent home AMA. I advised the pt against leaving, warned him of the risk of an RI and the risk of . I offered him a sandwich, he declined all treatment and sandwich. He also left prior to discharge instructions being given. - Diagnoses Provider Diagnoses: Chest pain Discharge - Sign-Out/Discharge Documenting (check all that apply): Patient Departure Patient Received Moderate/Deep Sedation with Procedure: No - Discharge Plan Condition: Stable Disposition: AGAINST MEDICAL ADVICE Referrals: Kurtis Iyer MD [Primary Care Provider] - Additional Instructions: Return to the emergency department with any new or worsening symptoms. - Billing Disposition and Condition Condition: STABLE Disposition: Against Medical Advice - Attestation Statements Document Initiated by Scribe: Yes Documenting Scribe: Génesis Benitez Provider For Whom Scribe is Documenting (Include Credential): Luis Enrique Pal MD. Scribe Attestation: Génesis Garcia, scribed for Luis Enrique Pal MD. on 05/25/18 at 1044. Scribe Documentation Reviewed: Yes Provider Attestation: The documentation as recorded by the scribe, Génesis Benitez accurately reflects the service I personally performed and the decisions made by me, Luis Enrique Pal MD. Status of Scribe Document: Viewed Consult Consult: 8070 - Spoke with Dr. Villalobos about the pt's present condition who will be the accepting physician to [facility].
[2018-05-22 12:08] VITALS: BP 172/94
--- NOTE | 2018-05-23 00:40 | CONSULT ---
Consult Consult: Evaluated requested for admission. This casualty underwriter met with patient and reviewed events leading up to presentation to the Emergency Department. When discussing plan for patient's admission patient became noticeably agitated as evidence by pressured speech and constant movement in bed. Patient stated he was agitated because he did not want to be admitted. Encouraged patient to be admitted. Encouraged patient to stay for repeat troponins. Patient admittedly refused. Discussed AMA and patient stated he wanted to leave AMA. Dr Pal made aware and was in to see patient.
== END 2018-05-22 12:09 | disposition left against medical advice (07) ==
LOC: ED 08:42
DX: R07.9 Chest pain, unspecified (principal); Z53.21 Procedure and treatment not carried out due to patient leaving prior to being seen by health care provider; F95.2 Tourette's disorder; F17.210 Nicotine dependence, cigarettes, uncomplicated; R06.02 Shortness of breath
CPT/HCPCS: 36415; 71045; 80053; 82550; 82553; 83605; 83880; 84484; 85025; 85730; 93005; 99282; A9270-GY

== ENCOUNTER 2018-07-14 08:52 | Emergency (ER) | payer BC ==
[2018-07-14 09:23] LABS: ABS Basophils 0.1 10^3/ul (0-0.2); ABS Eosinophils 0.2 10^3/ul (0-0.6); ABS Lymphocytes 2.1 10^3/ul (1.0-4.8); ABS Monocytes 0.5 10^3/ul (0-0.8); ABS Neutrophils 4.1 10^3/ul (1.5-7.7); Hematocrit 37 % (42-52); Hemoglobin 12.4 g/dL (14.0-18.0); Lymphocyte % 29.8 %; Mean Corpuscular HGB Conc 34 g/dL (31-36); Mean Corpuscular Hemoglobin 30 pg (27-31); Mean Corpuscular Volume 90 fL (80-94); Mean Platelet Volume 7.5 fL (7.4-10.4); Nucleated Red Blood Cells % 0.1; Platelet Count 303 10^3/uL (150-450); Red Cell Distribution Width 14 % (10.5-15)
[2018-07-14 09:32] LABS: Activated Partial Thrombo Time 27.3 seconds (26.0-36.3); INR 0.97 (0.82-1.09)
[2018-07-14 09:45] LABS: Albumin 4.1 g/dL (3.2-5.2); Albumin/Globulin Ratio 1.5 (1-3); BUN/Creatinine Ratio 17.9 (8-20); CKMB ng/mL 6.2 ng/mL (0.6-6.3); Calcium 9.2 mg/dL (8.6-10.3); EGFR African American 113.6 (>60); EGFR Non-African American 93.9 (>60); Globulin 2.8 g/dL (2-4); Magnesium 2.3 mg/dL (1.9-2.7); Potassium 4.4 mmol/L (3.5-5.0); Total Bilirubin 0.3 mg/dL (0.2-1.0); Total Protein 6.9 g/dL (6.4-8.9)
[2018-07-14 10:04] LABS: TSH (Thyroid Stimulating Horm) 2.2 mcIU/mL (0.34-5.60)
--- NOTE | 2018-07-14 10:07 | ED ---
HPI Chest Pain - HPI Summary HPI Summary: This patient is a 57 year old M brought in by EMS presenting to [facility] with a chief complaint of L anterior chest pain described as pressure since 07/09/18 after removing a pump from a well. Per EMS the patient had extreme chest pain last night during his work shift rated an 8/10 before taking nitro which alleviated the pain. This morning the pain returned and was rated a 10/10 prior to EMS being called. The pain is non-radiating and is aggravated with movement. Per EMS the patient was negative for a STEMI and was stable upon pick-up from the patients house. The patient reports SOB. The patient denies nausea, vomiting, and dizziness. The patient has a Hx of cardiac cath and CAD. Patient has a SHx of smoking and previous alcoholism. - History of Current Complaint Chief Complaint: EDChestPainROMI Time Seen by Provider: 07/14/18 08:56 Hx Obtained From: Patient, EMS Onset/Duration: Started Days Ago - 5, Still Present, Worse Since Timing: Intermittent Initial Severity: Severe Current Severity: Moderate Pain Intensity: 6 Pain Scale Used: 0-10 Numeric Chest Pain Location: Left Anterior Chest Pain Radiates: No Character: Pressure/Squeezing Aggravating Factor(s): Movement Alleviating Factor(s): NTG 123 Associated Signs and Symptoms: Positive: Chest Pain, Shortness of Breath. Negative: Dizziness, Nausea, Vomiting - Additional Pertinent History Primary Care Physician: [id number] - Allergy/Home Medications Allergies/Adverse Reactions: Allergies Allergy/AdvReac Type Severity Reaction Status Date / Time orange juice Allergy Severe Anaphylatic Verified 05/22/18 08:49 Shock aspirin Allergy Intermediate GI Upset Verified 05/22/18 08:49 ibuprofen Allergy Intermediate GI Upset Verified 05/22/18 08:49 latex Allergy Intermediate Rash Verified 05/22/18 08:49 ciprofloxacin [From Cipro] Allergy Unknown Verified 05/22/18 08:49 Reaction Details codeine Allergy Unknown Verified 05/22/18 08:49 Reaction Details metronidazole [From Flagyl] Allergy Unknown Verified 05/22/18 08:49 Reaction Details apple juice Allergy Severe Anaphylatic Uncoded 01/30/18 13:08 Shock raw fruits Allergy Severe Anaphylatic Uncoded 01/30/18 13:08 Shock 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, prefers not to take PMH/Surg Hx/FS Hx/Imm Hx Previously Healthy: No Endocrine/Hematology History: Reports: Hx Anticoagulant Therapy - ASA, Other Endocrine/Hematological Disorders - Hypoglycemia Denies: Hx Blood Disorders, Hx Bone Marrow Disease, Hx Diabetes, Hx Systemic Lupus Erythematosus, Hx Sickle Cell Disease, Hx Thyroid Disease, Hx Anemia, Hx Unexplained Bleeding Cardiovascular History: Reports: Hx Angina, Hx Coronary Artery Disease - stents placed - 2011, Hx Hypercholesterolemia, Hx Hypertension - CONTROLLED WITH MEDICATION, Hx Myocardial Infarction, Other Cardiovascular Problems/Disorders - FOLLOWED BY DR MANDEL, CORONARY ARTERY DISEASE Denies: Hx Aneurysm, Hx Angioplasty, Hx Auto Implanted Cardiovert Defib, Hx Cardiac Arrest, Hx Cardiomegaly, Hx Congenital Heart Disease, Hx Congestive Heart Failure, Hx Deep Vein Thrombosis, Hx Hypotension, Hx Pacemaker/ICD, Hx Peripheral Vascular Disease, Hx Rheumatic Fever, Hx Syncope, Hx Valvular Heart Disease Respiratory History: Reports: Hx Chronic Bronchitis, Hx Chronic Obstructive Pulmonary Disease (COPD), Other Respiratory Problems/Disorders - current smoker Denies: Hx Asthma, Hx Cystic Fibrosis, Hx Lung Cancer, Hx Pleural Effusion, Hx Pneumonia, Hx Pulmonary Edema, Hx Pulmonary Embolism, Hx Seasonal Allergies, Hx Sleep Apnea GI History: Reports: Hx Gastroesophageal Reflux Disease - ON DAILY OMEPRAZOLE, Hx Gastrointestinal Bleed, Other GI Disorders - Hx OF ULCERATIVE COLITIS Denies: Hx Cirrhosis, Hx Crohn's Disease, Hx Diverticulosis, Hx Gall Bladder Disease, Hx Hiatal Hernia, Hx Irritable Bowel, Hx Jaundice, Hx Obstructive Bowel , Hx Ileostomy, Hx Pyloric Stenosis, Hx Ulcer History: Denies: Hx Renal Disease Musculoskeletal History: Reports: Hx Arthritis - RIGHT HAND, Hx Orthopedic Injury - R hand, L foot, Hx Tendonitis - BOTH ARMS, Other Musculoskeletal History - L foot drop toe surgery; carpal tunnel relase R hand Sensory History: Reports: Hx Contacts or Glasses, Hx Vision Problem Denies: Hx Hearing Aid Opthamlomology History: Reports: Hx Contacts or Glasses, Hx Vision Problem Neurological History: Reports: Other Neuro Impairments/Disorders - TOURETTE'S SYNDROME, ON DAILY MEDS Denies: Hx Seizures Psychiatric History: Reports: Other Psychiatric Issues/Disorders - Tourette's Denies: Hx Substance Abuse - Surgical History Surgery Procedure, Year, and Place: 1998 LEFT FOOT [facility]. [place] [facility] [place] Anesthesia Reactions: No - Immunization History Date of Tetanus Vaccine: Unknown Date of Influenza Vaccine: None, doesn't get the flu vaccine Infectious Disease History: No Infectious Disease History: Denies: Hx Clostridium Difficile, Hx Hepatitis, Hx Human Immunodeficiency Virus (HIV), Hx of Known/Suspected MRSA, Hx Shingles, Hx Tuberculosis, History Other Infectious Disease, Traveled Outside the [place] in Last 30 Days - Family History Known Family History: Positive: Cardiac Disease - paternal, Other - [place] - maternal - Social History Alcohol Use: Rare Alcohol Amount: former alcoholic Hx Substance Use: Yes - not currently Substance Use Type: Reports: None Substance Use Comment - Amount & Last Used: Former drug user Hx Tobacco Use: Yes Smoking Status (MU): Heavy Every Day Tobacco Smoker Type: Cigarettes Amount Used/How Often: CURRENT 1/2PPD; PAST 3PPD; HAS SMOKED 42 YRS Length of Time of Smoking/Using Tobacco: 42 YEARS Have You Smoked in the Last Year: Yes Review of Systems Positive: Other - NEGATIVE - dizziness Positive: Chest Pain Positive: Shortness Of Breath Negative: Vomiting, Nausea All Other Systems Reviewed And Are Negative: Yes Physical Exam - Summary Physical Exam Summary: VITAL SIGNS: Reviewed. GENERAL: Patient is a well-developed and nourished MALE who is lying comfortable in the stretcher. Patient is not in any acute respiratory distress. HEAD AND FACE: No signs of trauma. No ecchymosis, hematomas or skull depressions. No sinus tenderness. EYES: PERRLA, EOMI x 2, No injected conjunctiva, no nystagmus. EARS: Hearing grossly intact. Ear canals and tympanic membranes are within normal limits. MOUTH: Oropharynx within normal limits. NECK: Supple, trachea is midline, no adenopathy, no JVD, no carotid bruit, no c- spine tenderness, neck with full ROM. CHEST: Symmetric, reproducible tenderness LUNGS: Clear to auscultation bilaterally. No wheezing or crackles. CVS: Regular rate and rhythm, S1 and S2 present, no murmurs or gallops appreciated. ABDOMEN: Soft, non-tender. No signs of distention. No rebound no guarding, and no masses palpated. Bowel sounds are normal. EXTREMITIES: FROM in all major joints, no edema, no cyanosis or clubbing. NEURO: Alert and oriented x 3. No acute neurological deficits. Speech is normal and follows commands. SKIN: Dry and warm Triage Information Reviewed: Yes Vital Signs On Initial Exam: Initial Vitals Temp Pulse Resp BP Pulse Ox 98.5 F 66 21 144/91 100 07/14/18 08:57 07/14/18 08:57 07/14/18 08:57 07/14/18 08:57 07/14/18 08:57 Vital Signs Reviewed: Yes Diagnostics - Vital Signs Vital Signs Temp Pulse Resp BP Pulse Ox 07/14/18 09:31 12 154/83 07/14/18 09:12 64 18 100 07/14/18 09:00 63 19 144/91 100 07/14/18 08:57 98.5 F 66 21 144/91 100 - Laboratory Lab Results: Lab Results 07/14/18 07/14/18 07/14/18 Range/Units 09:08 09:08 09:08 WBC 7.0 (3.5-10.8) 10^3/uL RBC 4.10 L (4.18-5.48) 10^6 /uL Hgb 12.4 L (14.0-18.0) g/dL Hct 37 L (42-52) % MCV 90 (80-94) fL MCH 30 (27-31) pg MCHC 34 (31-36) g/dL RDW 14 (10.5-15) % Plt Count 303 (150-450) 10^3/uL MPV 7.5 (7.4-10.4) fL Neut % (Auto) 58.8 % Lymph % (Auto) 29.8 % Ransom % (Auto) 6.9 % Eos % (Auto) 3.0 % Baso % (Auto) 1.5 % Absolute Neuts (auto) 4.1 (1.5-7.7) 10^3/ul Absolute Lymphs (auto) 2.1 (1.0-4.8) 10^3/ul Absolute Monos (auto) 0.5 (0-0.8) 10^3/ul Absolute Eos (auto) 0.2 (0-0.6) 10^3/ul Absolute Basos (auto) 0.1 (0-0.2) 10^3/ul Absolute Nucleated RBC 0.0 10^3/ul Nucleated RBC % 0.1 INR (Anticoag Therapy) 0.97 (0.82-1.09) APTT 27.3 (26.0-36.3) seconds Sodium 138 (135-145) mmol/L Potassium 4.4 (3.5-5.0) mmol/L Chloride 105 (101-111) mmol/L Carbon Dioxide 26 (22-32) mmol/L Anion Gap 7 (2-11) mmol/L BUN 15 (6-24) mg/dL Creatinine 0.84 (0.67-1.17) mg/dL Est GFR ( Amer) 113.6 (>60) Est GFR (Non-Af Amer) 93.9 (>60) BUN/Creatinine Ratio 17.9 (8-20) Glucose 97 (70-100) mg/dL Lactic Acid (0.5-2.0) mmol/L Calcium 9.2 (8.6-10.3) mg/dL Magnesium 2.3 (1.9-2.7) mg/dL Total Bilirubin 0.30 (0.2-1.0) mg/dL AST 22 (13-39) U/L ALT 15 (7-52) U/L Alkaline Phosphatase 68 (34-104) U/L Total Creatine Kinase 256 H (10-223) U/L CK-MB (CK-2) 6.2 (0.6-6.3) ng/mL Troponin I 0.00 (<0.04) ng/mL B-Natriuretic Peptide (<=100) pg/mL Total Protein 6.9 (6.4-8.9) g/dL Albumin 4.1 (3.2-5.2) g/dL Globulin 2.8 (2-4) g/dL Albumin/Globulin Ratio 1.5 (1-3) TSH Pending 07/14/18 07/14/18 Range/Units 09:08 09:08 WBC (3.5-10.8) 10^3/uL RBC (4.18-5.48) 10^6 /uL Hgb (14.0-18.0) g/dL Hct (42-52) % MCV (80-94) fL MCH (27-31) pg MCHC (31-36) g/dL RDW (10.5-15) % Plt Count (150-450) 10^3/uL MPV (7.4-10.4) fL Neut % (Auto) % Lymph % (Auto) % Ransom % (Auto) % Eos % (Auto) % Baso % (Auto) % Absolute Neuts (auto) (1.5-7.7) 10^3/ul Absolute Lymphs (auto) (1.0-4.8) 10^3/ul Absolute Monos (auto) (0-0.8) 10^3/ul Absolute Eos (auto) (0-0.6) 10^3/ul Absolute Basos (auto) (0-0.2) 10^3/ul Absolute Nucleated RBC 10^3/ul Nucleated RBC % INR (Anticoag Therapy) (0.82-1.09) APTT (26.0-36.3) seconds Sodium (135-145) mmol/L Potassium (3.5-5.0) mmol/L Chloride (101-111) mmol/L Carbon Dioxide (22-32) mmol/L Anion Gap (2-11) mmol/L BUN (6-24) mg/dL Creatinine (0.67-1.17) mg/dL Est GFR ( Amer) (>60) Est GFR (Non-Af Amer) (>60) BUN/Creatinine Ratio (8-20) Glucose (70-100) mg/dL Lactic Acid 0.7 (0.5-2.0) mmol/L Calcium (8.6-10.3) mg/dL Magnesium (1.9-2.7) mg/dL Total Bilirubin (0.2-1.0) mg/dL AST (13-39) U/L ALT (7-52) U/L Alkaline Phosphatase (34-104) U/L Total Creatine Kinase (10-223) U/L CK-MB (CK-2) (0.6-6.3) ng/mL Troponin I (<0.04) ng/mL B-Natriuretic Peptide 33 (<=100) pg/mL Total Protein (6.4-8.9) g/dL Albumin (3.2-5.2) g/dL Globulin (2-4) g/dL Albumin/Globulin Ratio (1-3) TSH Result Diagrams: 07/14/18 09:08 07/14/18 09:08 Lab Statement: Any lab studies that have been ordered have been reviewed, and results considered in the medical decision making process. - Radiology CXR Radiology Interpretation Completed By: Radiologist Summary of Radiographic Findings: Probable chronic obstructive pulmonary disease. No acute cardiopulmonary process is evident. ED physician has reviewed this report. - EKG 0906 Cardiac Rate: Bradycardia - 59 BPM EKG Rhythm: Sinus Bradycardia ST Segment: Normal Summary of EKG Findings: Sinus bradycardia with a rate of [address] elevations. Similar to previous EKG on 05/22/18. Re-Evaluation - Re-Evaluation First Eval Re-Evaluation Time: 12:55 Change: Improved Comment: Patient was informed of the discharge plan an is agreeable. Chest Pain Course/Dx - Course Assessment/Plan: This patient is a 57-year-old male who presents to the emergency department with a chief complaint of having chest pain in the left side of the chest which is reproducible to palpation and increases with movement of the left upper extremity. Patient has past medical history significant for hypertension, coronary artery disease status post catheterization with no stents, hypertension, dyslipidemia. EKG shows a normal sinus rhythm with ST elevation less than 1 mm in V3 V4 and V5 V6. The EKG is similar to his EKG done on 05/22/18. Blood work without any significant abnormality. 2 troponins 4 hours apart as 0.00. Urinalysis is negative. At this point, the patient is chest pain-free. Therefore the patient doesnt have any acute coronary syndrome likely is more muscular skeletal pain. Therefore I discussed all my findings and test results with the patient and the need to follow-up with primary care physician. Patient is hemodynamically stable alert and oriented 3. - Chest Pain Differential Diagnosis/HQI/PQRI: Acute IL, ACS, Angina, CHF, Chest Wall, GI Disease - Diagnoses Provider Diagnoses: Atypical chest pain Discharge - Sign-Out/Discharge Documenting (check all that apply): Patient Departure - discharge Patient Received Moderate/Deep Sedation with Procedure: No - Discharge Plan Condition: Stable Disposition: HOME Patient Education Materials: Chest Pain (ED) Referrals: Kurtis Iyer MD [Primary Care Provider] - 3 Days Additional Instructions: FOLLOW UP WITH YOUR PRIMARY CARE PROVIDER WITHIN 3 DAYS. RETURN TO THE ED FOR ANY WORSENING OR NEW SYMPTOMS. - Billing Disposition and Condition Condition: STABLE Disposition: Home - Attestation Statements Document Initiated by Scribe: Yes Documenting Scribe: Young Pearl and Aj Julian Provider For Whom Scribe is Documenting (Include Credential): Aldair David MD Scribe Attestation: I, Young Pearl and Aj Julian, scribed for Aldair David MD on 07/16/18 at 1136. Scribe Documentation Reviewed: Yes Provider Attestation: The documentation as recorded by the [email or web address], Young Pearl and Aj Julian accurately reflects the service I personally performed and the decisions made by me, Aldair David MD Status of Scribe Document: Viewed
[2018-07-14 12:30] LABS: Urine Appearance Clear; Urine Bilirubin Negative (Negative); Urine Blood Negative (Negative); Urine Color Straw; Urine Glucose Negative (Negative); Urine Ketones Negative (Negative); Urine Nitrite Negative (Negative); Urine Protein Negative (Negative); Urine Specific Gravity 1.004 (1.010-1.030); Urine Urobilinogen Negative (Negative)
[2018-07-14 13:10] VITALS: BP 134/75
== END 2018-07-14 13:27 | disposition home or self-care (01) ==
LOC: ED 08:52
DX: R07.89 Other chest pain (principal); R06.02 Shortness of breath; R00.1 Bradycardia, unspecified; I25.10 Atherosclerotic heart disease of native coronary artery without angina pectoris; I10 Essential (primary) hypertension; K21.9 Gastro-esophageal reflux disease without esophagitis; F95.2 Tourette's disorder; Z88.6 Allergy status to analgesic agent; Z88.1 Allergy status to other antibiotic agents; Z91.040 Latex allergy status; Z88.5 Allergy status to narcotic agent; Z91.018 Allergy to other foods; F17.210 Nicotine dependence, cigarettes, uncomplicated
CPT/HCPCS: 36415; 71045; 80053; 81003; 82550; 82553; 83605; 83735; 83880; 84443; 84484; 85025; 85610; 85730; 93005; 99283

== ENCOUNTER 2019-01-01 07:33 | Emergency (ER) | payer BC ==
[2019-01-01] MEDS ORDERED: NS 0.9% 1000 ML** 1,000 ML IV ONE (07:53)
--- NOTE | 2019-01-01 07:58 | ED ---
Abdominal Pain/Male - HPI Summary HPI Summary: Patient is a 58-year-old male who presents emergency department for left lower quadrant abdominal pain that started last night. Pain is constant and sharp in nature. Movement makes symptoms worse. Nothing makes symptoms better. Denies associated symptoms of fever, chest pain, shortness of breath, dysuria, hematuria, vomiting or diarrhea. Patient denies past medical history. Symptoms are moderate in severity. No current modifying factors. Surgical history of hernia repair. - History of Current Complaint Chief Complaint: EDAbdPain Stated Complaint: POSS HERNIA PER PT Time Seen by Provider: 01/01/19 07:45 Hx Obtained From: Patient Pain Intensity: 8 - Allergies/Home Medications Allergies/Adverse Reactions: Allergies Allergy/AdvReac Type Severity Reaction Status Date / Time orange juice Allergy Severe Anaphylatic Verified 01/01/19 07:34 Shock aspirin Allergy Intermediate GI Upset Verified 01/01/19 07:34 ibuprofen Allergy Intermediate GI Upset Verified 01/01/19 07:34 latex Allergy Intermediate Rash Verified 01/01/19 07:34 ciprofloxacin [From Cipro] Allergy Unknown Verified 01/01/19 07:34 Reaction Details codeine Allergy Unknown Verified 01/01/19 07:34 Reaction Details metronidazole [From Flagyl] Allergy Unknown Verified 01/01/19 07:34 Reaction Details apple juice Allergy Severe Anaphylatic Uncoded 01/01/19 07:34 Shock raw fruits Allergy Severe Anaphylatic Uncoded 01/01/19 07:34 Shock narcotics AdvReac 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/01/19 07:34 abuser, prefers not to take Home Medications: Home Medications cloNIDine TAB* [Catapres 0.1 MG TAB*] 0.2 mg PO BEDTIME 01/01/19 [History Confirmed 01/01/19] PMH/Surg Hx/FS Hx/Imm Hx Previously Healthy: Yes Endocrine/Hematology History: Reports: Hx Anticoagulant Therapy - ASA, Other Endocrine/Hematological Disorders - Hypoglycemia Denies: Hx Blood Disorders, Hx Bone Marrow Disease, Hx Diabetes, Hx Systemic Lupus Erythematosus, Hx Sickle Cell Disease, Hx Thyroid Disease, Hx Anemia, Hx Unexplained Bleeding Cardiovascular History: Reports: Hx Angina, Hx Coronary Artery Disease - stents placed - 2011, Hx Hypercholesterolemia, Hx Hypertension - CONTROLLED WITH MEDICATION, Hx Myocardial Infarction, Other Cardiovascular Problems/Disorders - FOLLOWED BY DR MANDEL, CORONARY ARTERY DISEASE Denies: Hx Aneurysm, Hx Angioplasty, Hx Auto Implanted Cardiovert Defib, Hx Cardiac Arrest, Hx Cardiomegaly, Hx Congenital Heart Disease, Hx Congestive Heart Failure, Hx Deep Vein Thrombosis, Hx Hypotension, Hx Pacemaker/ICD, Hx Peripheral Vascular Disease, Hx Rheumatic Fever, Hx Syncope, Hx Valvular Heart Disease Respiratory History: Reports: Hx Chronic Bronchitis, Hx Chronic Obstructive Pulmonary Disease (COPD), Other Respiratory Problems/Disorders - current smoker Denies: Hx Asthma, Hx Cystic Fibrosis, Hx Lung Cancer, Hx Pleural Effusion, Hx Pneumonia, Hx Pulmonary Edema, Hx Pulmonary Embolism, Hx Seasonal Allergies, Hx Sleep Apnea GI History: Reports: Hx Gastroesophageal Reflux Disease - ON DAILY OMEPRAZOLE, Hx Gastrointestinal Bleed, Other GI Disorders - Hx OF ULCERATIVE COLITIS Denies: Hx Cirrhosis, Hx Crohn's Disease, Hx Diverticulosis, Hx Gall Bladder Disease, Hx Hiatal Hernia, Hx Irritable Bowel, Hx Jaundice, Hx Obstructive Bowel , Hx Ileostomy, Hx Pyloric Stenosis, Hx Ulcer History: Denies: Hx Renal Disease Musculoskeletal History: Reports: Hx Arthritis - RIGHT HAND, Hx Orthopedic Injury - R hand, L foot, Hx Tendonitis - BOTH ARMS, Other Musculoskeletal History - L foot drop toe surgery; carpal tunnel relase R hand Sensory History: Reports: Hx Contacts or Glasses, Hx Vision Problem Denies: Hx Hearing Aid Opthamlomology History: Reports: Hx Contacts or Glasses, Hx Vision Problem Neurological History: Reports: Other Neuro Impairments/Disorders - TOURETTE'S SYNDROME, ON DAILY MEDS Denies: Hx Seizures Psychiatric History: Reports: Other Psychiatric Issues/Disorders - Tourette's Denies: Hx Substance Abuse - Surgical History Surgery Procedure, Year, and Place: 1998 LEFT FOOT [facility]. [place] [facility] [place] Hx Anesthesia Reactions: No - Immunization History Date of Tetanus Vaccine: Unknown Date of Influenza Vaccine: None, doesn't get the flu vaccine Infectious Disease History: No Infectious Disease History: Denies: Hx Clostridium Difficile, Hx Hepatitis, Hx Human Immunodeficiency Virus (HIV), Hx of Known/Suspected MRSA, Hx Shingles, Hx Tuberculosis, History Other Infectious Disease, Traveled Outside the [place] in Last 30 Days - Family History Known Family History: Positive: Cardiac Disease - paternal, Other - [place] - maternal - Social History Occupation: Retired Lives: With Family Alcohol Use: None Alcohol Amount: former alcoholic Hx Substance Use: Yes - not currently Substance Use Type: Reports: None Substance Use Comment - Amount & Last Used: Former drug user Hx Tobacco Use: Yes Smoking Status (MU): Heavy Every Day Tobacco Smoker Type: Cigarettes Amount Used/How Often: CURRENT 1/2PPD; PAST 3PPD; HAS SMOKED 42 YRS Length of Time of Smoking/Using Tobacco: 42 YEARS Have You Smoked in the Last Year: Yes Review of Systems Constitutional: Negative Negative: Fever Cardiovascular: Negative Negative: Palpitations, Chest Pain Respiratory: Negative Negative: Shortness Of Breath, Cough Positive: Abdominal Pain. Negative: Vomiting, Diarrhea Genitourinary: Negative Negative: dysuria, flank pain, hematuria Neurological: Negative All Other Systems Reviewed And Are Negative: Yes Physical Exam Triage Information Reviewed: Yes Vital Signs On Initial Exam: Initial Vitals Temp Pulse Resp BP Pulse Ox 98.9 F 81 20 135/84 100 01/01/19 07:34 01/01/19 07:34 01/01/19 07:34 01/01/19 07:34 01/01/19 07:34 Vital Signs Reviewed: Yes Appearance: Positive: Well-Appearing - Pt. sitting up in bed in NAD. Skin: Positive: Warm, Dry Head/Face: Positive: Normal Head/Face Inspection Eyes: Positive: Normal, EOMI Neck: Positive: Supple Respiratory/Lung Sounds: Positive: Clear to Auscultation, Breath Sounds Present Cardiovascular: Positive: Normal, RRR Abdomen Description: Positive: Other: - Abd. is soft with marked tenderness to LLQ with guarding. Left CVA tenderness. Neurological: Positive: Normal, CN Intact II-III Psychiatric: Positive: Affect/Mood Appropriate Procedures - Sedation Patient Received Moderate/Deep Sedation with Procedure: No Diagnostics - Vital Signs Vital Signs Temp Pulse Resp BP Pulse Ox 01/01/19 07:34 98.9 F 81 20 135/84 100 - Laboratory Result Diagrams: 01/01/19 08:09 01/01/19 08:09 Lab Statement: Any lab studies that have been ordered have been reviewed, and results considered in the medical decision making process. Abdominal Pain Male Course/Dx - Course Course Of Treatment: Pt. with LLQ pain. VS stable. Pt. declines pain medication. Labs and ct scan ordered for further evaluation. Labs unremarkable other than chronic anemia and mild elevation in CRP. CT per radiology: IMPRESSION: 1. FINDINGS MOST CONSISTENT WITH DIVERTICULITIS INVOLVING THE PROXIMAL SIGMOID COLON. THERE IS NO EVIDENCE FOR ABSCESS OR FREE INTRAPERITONEAL AIR. 2. MULTIPLE HEPATIC LESIONS WHICH ARE UNCHANGED. 3. MILD CHRONIC COMPRESSION FRACTURE OF THE L1 VERTEBRAL BODY, UNCHANGED. On re-exam pt. resting comfortably. Results discussed. Pt. with allergy to cipro. Will treat with augmentin and clear liquid diet. To f.u with pcp within one week. Tylenol for pain as directed. Return to er for increased pain, vomiting, fever, or if concerned. Pt. understands and agrees with plan. This report is only to be considered final once signed by the Provider(s) as displayed in the "< Electronically Signed by >" field (s). Absence of a. signature indicates the report is in a draft status and still needs to be finalized. In the event this document was created by someone other than the. signing Provider, the individual initiating the document will be listed in the "Entered by:" or "Dictated by:" coleman. 2 of 2 - Diagnoses Differential Diagnosis/HQI/PQRI: Appendicitis, Bowel Obstruction, Constipation, Diverticulitis, Renal Colic, Ureteral Stone Provider Diagnoses: Diverticulitis Discharge ED - Sign-Out/Discharge Documenting (check all that apply): Patient Departure - Discharge Plan Condition: Good Disposition: HOME Prescriptions: Amoxicillin/Clavulanate TAB* [Augmentin TAB 875*] 875 mg PO BID #20 tab Patient Education Materials: Diverticulitis (ED), Diverticulitis Diet (ED) Forms: *Work Release Referrals: Kurtis Iyer MD [Primary Care Provider] - Additional Instructions: Follow up with your PCP for recheck in within one week Take medication as directed Clear liquid diet x 3-5 days Tylenol for pain as directed Return to ER for increased pain, fever, vomiting or if concerned - Billing Disposition and Condition Condition: GOOD Disposition: Home - Attestation Statements Provider Attestation: I was available for consult. This patient was seen by the SMITHA. The patient was not presented to, seen by, or examined by me. Prem Greene MD
[2019-01-01 08:24] LABS: ABS Basophils 0.1 10^3/ul (0-0.2); ABS Eosinophils 0.2 10^3/ul (0-0.6); ABS Monocytes 0.9 10^3/ul (0-0.8); Hematocrit 35 % (42-52); Hemoglobin 12.2 g/dL (14.0-18.0); Lymphocyte % 20.1 %; Mean Corpuscular HGB Conc 35 g/dL (31-36); Mean Corpuscular Hemoglobin 31 pg (27-31); Mean Corpuscular Volume 89 fL (80-94); Mean Platelet Volume 6.9 fL (7.4-10.4); Platelet Count 301 10^3/uL (150-450); Red Blood Count 3.95 10^6 /uL (4.18-5.48); Red Cell Distribution Width 14 % (10-15); White Blood Count 10.1 10^3/uL (3.5-10.8)
[2019-01-01 08:33] LABS: Albumin 3.8 g/dL (3.2-5.2); Albumin/Globulin Ratio 1.6 (1-3); BUN/Creatinine Ratio 20.7 (8-20); C Reactive Protein 21.07 mg/L (<8.01); Calcium 8.9 mg/dL (8.6-10.3); EGFR African American 101.9 (>60); EGFR Non-African American 84.2 (>60); Globulin 2.4 g/dL (2-4); Potassium 3.9 mmol/L (3.5-5.0); Total Bilirubin 0.3 mg/dL (0.2-1.0); Total Protein 6.2 g/dL (6.4-8.9)
[2019-01-01] MEDS ORDERED: Iohexol 300* (CONTRAST) 10 ML SDV IV ONE (08:54)
[2019-01-01 09:56] VITALS: BP 126/80
[2019-01-01 10:24] LABS: Urine Appearance Clear; Urine Bilirubin Negative (Negative); Urine Blood Negative (Negative); Urine Color Yellow; Urine Glucose Negative (Negative); Urine Ketones Negative (Negative); Urine Nitrite Negative (Negative); Urine Protein Negative (Negative); Urine Urobilinogen Negative (Negative)
== END 2019-01-01 09:54 | disposition home or self-care (01) ==
LOC: ED 07:33
DX: K57.92 Diverticulitis of intestine, part unspecified, without perforation or abscess without bleeding (principal); K76.9 Liver disease, unspecified; M48.56XA Collapsed vertebra, not elsewhere classified, lumbar region, initial encounter for fracture; I25.10 Atherosclerotic heart disease of native coronary artery without angina pectoris; E78.00 Pure hypercholesterolemia, unspecified; I10 Essential (primary) hypertension; I25.2 Old myocardial infarction; J44.9 Chronic obstructive pulmonary disease, unspecified; K21.9 Gastro-esophageal reflux disease without esophagitis; F95.2 Tourette's disorder; F17.210 Nicotine dependence, cigarettes, uncomplicated; Z95.5 Presence of coronary angioplasty implant and graft; Z79.82 Long term (current) use of aspirin; Z79.899 Other long term (current) drug therapy; Z88.5 Allergy status to narcotic agent; Z88.8 Allergy status to other drugs, medicaments and biological substances; Z88.6 Allergy status to analgesic agent; Z88.1 Allergy status to other antibiotic agents; Z91.040 Latex allergy status
CPT/HCPCS: 36415; 74177; 80053; 81003; 83605; 83690; 85025; 86140; 96360; 99283; Q9967

== ENCOUNTER 2019-05-27 04:03 | Emergency (ER) | payer BC ==
--- OUTSIDE RECORDS SUMMARY | 2019-05-27 04:14 | XMS REPORT | Continuity of Care Document ---
:1960 External Reference #:[id number] Author Name Larisa Jimenez M.D. (transmitted by agent of provider Isa Rivero) Address [address] [place] [address] Care Team Providers Name Role Phone Kurtis Iyer MD - Family Care Team Information Bacon Slicer [phone] Medicine Kurtis Iyer MD - Family Care Team Information Bacon Slicer Medicine Problems Active Problems Provider Date Benign essential hypertension Mayur Espinoza M.D. Onset: 05/18/2012 Coronary arteriosclerosis Mayur Espinoza M.D. Onset: 05/18/2012 Chest pain Mayur Espinoza M.D. Onset: 06/03/2013 Note: many workups - ETT planned April 2018 Juan David de la Tourette's syndrome Mayur Espinoza M.D. Onset: 06/03/2013 Tobacco user Mayur Espinoza M.D. Onset: 06/03/2013 Pure hypercholesterolemia Mayur Espinoza M.D. Onset: 06/03/2013 Closed fracture of lumbar vertebra without Peewee Person M.D. Onset: 2013 spinal cord injury Abdominal pain Patricia Mcfarlane NP Onset: 12/22/2017 Anemia Patricia Mcfarlane NP Onset: 12/22/2017 Chronic obstructive lung disease Ernie Zavala MD Onset: 04/23/2010 Note: 19 CXRs done from fall 2011 to 04/16/18 with last CXR showing LLL atelectasis and underinflation; Social History Type Date Description Comments Sex Unknown Tobacco Use Start: Unknown current cigarette smoked 35 yrs 1/2 smoker pk daily 01/2019 ETOH Use Etoh abuse in the past stopped in 1989 ETOH Use Occasionally consumes 02/11-admits to alcohol alcohol to once a month takes a double shot of whiskey or a beer Recreational Drug Use 1982 Former Drug User coke ,pot , speed Tobacco Use Start: Unknown Patient is a current 1/2 pack per day smoker, smokes every day Smoking Status Reviewed: 04/14/19 Patient is a current 1/2 pack per day smoker, smokes every day Enjoy Exercising Does not enjoy exercising Exercise Type/Frequency Exercises regularly Work activities Approx 6.5 miles in walking daily. Allergies, Adverse Reactions, Alerts Active Allergies Reaction Severity Comments Date Aspirin GI intolerence 10/03/2009 Codeine 10/03/2009 Latex 07/12/2013 Cipro 01/28/2018 Flagyl 01/28/2018 Medications Active Medications SIG Qnty Indications Ordering Provider Date Mirtazapine 1 by mouth Unknown 02/22/2019 7.5mg everyday at Tablets bedtime Clonidine HCL take 2 by mouth 90tabs F95.2 Peewee Correa, 02/14/2016 0.1mg in the evening M.DYamini Tablets Nitrostat one sl q5 min up 25tabs Mayur Cruz 10/18/2014 0.4mg Tablets to 3 doses as Glynn Espinoza Sub needed Oxycodone-Acetaminoph 1 po Q6h prn pain 60tabs 805.4 Peewee Person, 2013 en Glynn 5-325mg Tablets Atorvastatin Calcium Take One Tablet 90tabs Rupal Hoskins, 06/03/2012 By Mouth Every N.P. 40mg Tablets Day Metoprolol Tartrate 1/2 by mouth 90tabs Rupal Hoskins, 05/18/2012 twice a day N.P. 25mg Tablets Aspirin Adult Low 1 tab po daily Mayur Cruz 05/18/2012 Strength Glynn Espinoza 81mg Chewtabs Baclofen 1 by mouth twice 60tabs Peewee Correa, 10mg Tablets a day M.DYamini Omeprazole 1 by mouth every 30caps Other Ordering 40mg day Provider Capsules Meclizine HCL 1 tablet daily as Unknown 50mg needed Tablets Paroxetine HCL 1 by mouth every Unknown 20mg day Tablets Immunizations Description No Information Available Vital Signs Date Vital Result Comment 04/14/2019 10:37am Height 62.5 inches 5'2.50" Weight 153.00 lb Heart Rate 68 /min BP Systolic 164 mmHg BP Diastolic 100 mmHg Respiratory Rate 16 /min Body Temperature 98.0 F Pain Level 3 BMI (Body Mass Index) 27.5 kg/m2 02/23/2019 8:39am Height 62.5 inches 5'2.50" Weight 154.12 lb with steel toe boots/sweatshirt Heart Rate 68 /min left radial BP Systolic Sitting 132 mmHg Lue, reg cuff BP Diastolic Sitting 80 mmHg Lue, reg cuff BP Systolic Standing 124 mmHg Lue, reg cuff BP Diastolic Standing 76 mmHg Lue, reg cuff BMI (Body Mass Index) 27.7 kg/m2 Ejection Fraction 60%-65% echo 11/03/14 Results Test Acquired Date Facility Test Result H/L Range Note CBC Auto 01/11/2019 [facility] White Blood 6.5 10^3/uL Normal 3.5-10.[address] [place], [place] [id number] [phone] Red Blood Count 4.35 10^6/uL Normal 4.18-5.48 Hemoglobin 13.2 g/dL Low 14.0-18.0 Hematocrit 40 % Low 42-52 Mean Corpuscular Volume 91 fL Normal 80-94 Mean Corpuscular Hemoglobin 30 pg Normal 27-31 Mean Corpuscular HGB Conc 33 g/dL Normal 31-36 Red Cell Distribution Width 14 % Normal 10-15 Platelet Count 351 10^3/uL Normal 150-450 Mean Platelet Volume 7.7 fL Normal 7.4-10.4 Abs Neutrophils 3.6 10^3/uL Normal 1.5-7.7 Abs Lymphocytes 1.8 10^3/uL Normal 1.0-4.8 Abs Monocytes 0.7 10^3/uL Normal 0-0.8 Abs Eosinophils 0.3 10^3/uL Normal 0-0.6 Abs Basophils 0.1 10^3/uL Normal 0-0.2 Abs Nucleated RBC 0.0 10^3/uL Granulocyte % 56.1 % Lymphocyte % 28.1 % Monocyte % 10.6 % Eosinophil % 4.1 % Basophil % 1.1 % Nucleated Red Blood Cells % 0.1 Comp Metabolic 01/11/2019 [facility] Sodium 141 mmol/L Normal 135-145 Panel [address] [place] [address] [phone] Potassium 5.0 mmol/L Normal 3.5-5.0 Chloride 108 mmol/L Normal 101-111 Co2 Carbon Dioxide 29 mmol/L Normal 22-32 Anion Gap 4 mmol/L Normal 2-11 Glucose 81 mg/dL Normal 70-100 Blood Urea Nitrogen 16 mg/dL Normal 6-24 Creatinine 0.71 mg/dL Normal 0.67-1.17 BUN/Creatinine Ratio 22.5 High 8-20 Calcium 9.2 mg/dL Normal 8.6-10.3 Total Protein 6.5 g/dL Normal 6.4-8.9 Albumin 3.9 g/dL Normal 3.2-5.2 Globulin 2.6 g/dL Normal 2-4 Albumin/Globulin Ratio 1.5 Normal 1-3 Total Bilirubin 0.40 mg/dL Normal 0.2-1.0 Alkaline Phosphatase 88 U/L Normal 34-104 Alt 18 U/L Normal 7-52 Ast 17 U/L Normal 13-39 Egfr Non- 113.6 >60 Egfr 137.4 >60 2 Lipid Profile 01/11/2019 [facility] Triglycerides 84 mg/dL 3 (Trig/Chol/HDL) [address] [place] [address] [phone] Cholesterol 138 mg/dL 4 HDL Cholesterol 34.6 mg/dL 5 LDL Cholesterol 87 mg/dL 6 1 [id number] 2 Because ethnic data is not always readily [...] 15-29 5 Kidney failure <15 (or dialysis) 3 Desirable: <150 Borderline High: 150-199 High: 200-499 Very High: >500 4 Desirable: <200 Borderline High: 200-239 High: >239 5 Low: <40 Desirable: 40-60 High: >60 6 Desirable: <100 Near Optimal: 100-129 Borderline High: 130-159 High: 160-189 Very High: >189 Procedures Date Code Description Status 02/23/2019 21778 EKG Tracing & Interpretation Completed 03/06/2018 [id number] Colonoscopy Completed Medical Devices Description No Information Available Encounters Type Date Location Provider Dx Diagnosis Office Visit 02/23/2019 [facility] Mayur Cruz R07.9 Chest pain, 9:00a Glynn Espinoza unspecified I10 Essential (primary) hypertension I25.10 Athscl heart disease of [place] coronary artery w/o ang pctrs E78.00 Pure hypercholesterolemia, unspecified D64.9 Anemia, unspecified Assessments Date Code Description Provider 04/14/2019 M19.041 Primary osteoarthritis, right hand Larisa Jimenez M.D. 02/23/2019 R07.9 Chest pain, unspecified Mayur Espinoza M.D. 02/23/2019 I10 Essential (primary) hypertension Mayur Espinoza M.D. 02/23/2019 I25.10 Atherosclerotic heart disease of [place] Mayur Espinoza M.D. coronary artery with 02/23/2019 E78.00 Pure hypercholesterolemia, unspecified Mayur Espinoza M.D. 02/23/2019 D64.9 Anemia Mayur Espinoza M.D. Plan of Treatment Future Appointment(s):05/21/2019 9:45 am - Peewee Correa M.D. at [id number]/14/2019 - Larisa Jimenez M.D.M19.041 Primary osteoarthritis, right handFollow up:Follow up: As needed Functional Status Description No Information Available Mental Status Description No Information Available Referrals Refer to Dr Reason for Referral Status Appt Date Kurtis Iyer MD mild anemia . pt instructed to followup Sent with Dr. Iyer [address] [id number] [phone]
--- OUTSIDE RECORDS SUMMARY | 2019-05-27 04:14 | XMS REPORT | Continuity of Care Document ---
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 Onset: 06/18/2010 Tobacco user Nikkie Templeton M.D. Onset: 06/18/2010 Juan David de la Tourette's syndrome Nikkie Templeton M.D. Onset: 2010 Coronary arteriosclerosis Olimpia Perry M.D. Onset: 04/23/2012 Mixed hyperlipidemia Olimpia Perry M.D. Onset: 04/23/2012 Essential hypertension Janet Sy, [facility] Onset: 04/26/2015 Social History Type Date Description Comments Sex Unknown Tobacco Use Start: Unknown Current cigarette Back up to 1 PPD as End: Unknown smoker, has smoked 1/2 of 01/11. pack daily, Did Quit For ETOH Use Negative For Currently consumes alcohol ETOH Use Has consumed alcohol in the past Recreational Drug Use Denies Drug Use Recreational Drug Use Former Drug User Recreational Drug Use Former illegal amphetamines Regularly Recreational Drug Use Formerly used Cocaine regularly Recreational Drug Use Formerly used Marijuana regularly Tobacco Use Start: Unknown Patient is a current smoker, smokes every day Tobacco Use Start: Unknown . Pt states he has tried to cut back, however he denies interest in smoking cessation at this time. Exercise Type/Frequency Does not exercise Allergies, Adverse Reactions, Alerts Active Allergies Reaction Severity Comments Date Aspirin upset stomach 06/24/2006 Codeine hx overdose 1979. former drug addict, 06/24/2006 does not use opiates Medications Active Medications SIG Qnty Indications Ordering Date Provider Mirtazapine 1 tab by mouth at 30tabs G47.00 Kurtis 11/16/2018 7.5mg bedtime MD Jaylon Tablets Omeprazole Take One Capsule 30caps B96.81 Kurtis 01/08/2013 40mg By Mouth Every MD Jaylon Capsules DR Day Paroxetine HCL Take One Tablet 30tabs Kurtis 12/29/2009 20mg By Mouth Every MD Jaylon Tablets Day Aspirin Ec 1 po qd 100tabs F17.210 Nikkie Marx 09/09/2008 81mg Tablets [address] DR Clonidine 1 by mouth in in 90tabs Janet Sy, 0.1mg Tablets the morning and 2 [employer] every at bedtime Baclofen 1 Tablet By Mouth Peewee Correa, 10mg Tablets 1 to 2 Times A MD Day as Needed For Cramping Metoprolol Tartrate Take 1/2 tablet 180tabs Mayur Espinoza, po bid MD 25mg Tablets Atorvastatin Calcium 1 by mouth every Unknown day 40mg Tablets Nitrostat place one tablet Unknown 0.4mg Tablets under the tongue Sub every 5 minutes for up to 3 doses as needed for chest pain. if chest pain still persists co Meclizine HCL prn Unknown 50mg Tablets Medications Administered in Office Medication SIG Qnty Indications Ordering Provider Date TB,Intradermal (Kurtis GILMORE MD 01/11/2019 [place]) Injection TB,Intradermal (Olimpia GILMORE M.D. 12/24/2013 [place]) Injection TB,Intradermal (Olimpia GILMORE M.D. 12/23/2012 [place]) Injection Immunizations CPT Code Status Date Vaccine Reaction Lot # [id number] Given 12/09/2018 Influenza Virus Vaccine, Quadrivalent, 3 Yr > Quad, Preserv Free 10485 Given 11/27/2017 Influenza Virus Vaccine, Quadrivalent, 3 Yr > Quad, Preserv Free 45747 Given 12/04/2016 Influenza Virus Vaccine, Quadrivalent, Split, 6-35 [place] [address] Given 11/27/2016 Influenza Virus Vaccine, Quadrivalent, 3 Yr > Quad, Preserv Free 40756 Given 12/26/2014 Influenza Virus Vaccine, [id number] Quadrivalent, 3 Yr > Quad, Preserv Free 23136 Given 12/24/2013 Influenza Virus Vaccine, [id number] Quadrivalent, 3 Yr > Quad, Preserv Free 58314 Given 12/23/2012 Tdap (Adacel) [id number] 25532 Given 10/09/2012 Pneumovax 23 (PPSV23) 65+ pt called on Mon am [id number] years or high risk 2 to 64 10/12/12 to report red, year old swollen [facility] site. [address] Given 12/17/2005 Td Age 7 to adult Decavac, Tenivac, [facility] [id number] Given 10/05/1998 DT (Adult) Vital Signs Date Vital Result Comment 04/07/2019 9:48am Weight 159.00 lb Weight 72.122 kg BP Systolic 132 mmHg BP Diastolic 82 mmHg Heart Rate 82 /min Body Temperature 98.5 F Respiratory Rate 16 /min O2 % BldC Oximetry 98 % 01/11/2019 8:58am Weight 147.00 lb Weight 66.679 kg BP Systolic 138 mmHg BP Diastolic 88 mmHg Heart Rate 62 /min Body Temperature 97.1 F Height 65 inches 5'5" BMI (Body Mass Index) 24.5 kg/m2 O2 % BldC Oximetry 99 % Results Test Acquired Date Facility Test Result H/L Range Note Lipid Profile 01/11/2019 [facility] Triglycerides 84 mg/dL 1, 2 (Trig/Chol/HDL) [phone] Cholesterol 138 mg/dL 3 HDL Cholesterol 34.6 mg/dL 4 LDL Cholesterol 87 mg/dL 5 CBC Auto 01/11/2019 [facility] White Blood 6.5 10^3/ uL Normal 3.5-10.8 Diff [phone] Count Red Blood Count 4.35 10^6/uL Normal 4.18-5.48 [...] Blood Cells % 0.1 Comp Metabolic 01/11/2019 [facility] Sodium 141 mmol/ L Normal 135-145 Panel [phone] Potassium 5.0 mmol/L Normal 3.5-5.0 Chloride 108 [...] Egfr Non- 113.6 >60 Egfr 137.4 >60 6 CBC Auto 01/01/2019 [facility] White Blood 10.1 10^3/ uL Normal 3.5-10.8 Diff [phone] Count Red Blood Count 3.95 10^6/uL Low 4.18-5.48 Hemoglobin 12.2 g/dL Low 14.0-18.0 Hematocrit 35 % Low 42-52 Mean Corpuscular Volume 89 fL Normal 80-94 Mean Corpuscular Hemoglobin 31 pg Normal 27-31 Mean Corpuscular HGB Conc 35 g/dL Normal 31-36 Red Cell Distribution Width 14 % Normal 10-15 Platelet Count 301 10^3/uL Normal 150-450 Mean Platelet Volume 6.9 fL Low 7.4-10.4 Abs Neutrophils 7.0 10^3/uL Normal 1.5-7.7 Abs Lymphocytes 2.0 10^3/uL Normal 1.0-4.8 Abs Monocytes 0.9 10^3/uL High 0-0.8 Abs Eosinophils 0.2 10^3/uL Normal 0-0.6 Abs Basophils 0.1 10^3/uL Normal 0-0.2 Abs Nucleated RBC 0.0 10^3/uL Granulocyte % 68.8 % Lymphocyte % 20.1 % Monocyte % 8.5 % Eosinophil % 2.0 % Basophil % 0.6 % Nucleated Red Blood Cells % 0.0 Laboratory test 01/01/2019 [facility] Lactic Acid 0.8 mmol/L Normal 0.5-2.0 7 finding [phone] Comp Metabolic 01/01/2019 [facility] Sodium 136 mmol/ L Normal 135-145 Panel [phone] Potassium 3.9 mmol/L Normal 3.5-5.0 Chloride 105 mmol/L Normal 101-111 Co2 Carbon Dioxide 26 mmol/L Normal 22-32 Anion Gap 5 mmol/L Normal 2-11 Glucose 83 mg/dL Normal 70-100 Blood Urea Nitrogen 19 mg/dL Normal 6-24 Creatinine 0.92 mg/dL Normal 0.67-1.17 BUN/Creatinine Ratio 20.7 High 8-20 Calcium 8.9 mg/dL Normal 8.6-10.3 Total Protein 6.2 g/dL Low 6.4-8.9 Albumin 3.8 g/dL Normal 3.2-5.2 Globulin 2.4 g/dL Normal 2-4 Albumin/Globulin Ratio 1.6 Normal 1-3 Total Bilirubin 0.30 mg/dL Normal 0.2-1.0 Alkaline Phosphatase 72 U/L Normal 34-104 Alt 10 U/L Normal 7-52 Ast 15 U/L Normal 13-39 Egfr Non- 84.2 >60 Egfr 101.9 >60 8 Laboratory test 01/01/2019 [facility] Lipase 35 U/L Normal 11.0-82.0 finding [phone] C Reactive Protein 21.07 mg/L High <8.01 Urinalysis Profile 01/01/2019 [facility] Urine Color Yellow [phone] Urine Appearance Clear Urine Specific [place] 1.010 Normal 1.010-1.030 Urine pH 7.0 Normal 5-9 Urine Urobilinogen Negative Negative Urine Ketones Negative Negative Urine Protein Negative Negative Urine Leukocytes Negative Negative Urine Blood Negative Negative Urine Nitrite Negative Negative Urine Bilirubin Negative Negative Urine Glucose Negative Negative 1 [id number] 2 Desirable: <150 Borderline High: 150-199 High: 200-499 Very High: >500 3 Desirable: <200 Borderline High: 200-239 High: >239 4 Low: <40 Desirable: 40-60 High: >60 5 Desirable: <100 Near Optimal: 100-129 Borderline High: 130-159 High: 160-189 Very High: >189 6 Because ethnic data is not always readily [...] 15-29 5 Kidney failure <15 (or dialysis) 7 [place] Severe Sepsis and Septic Shock Management Bundle Measure requires all lactic acids initially measuring >2.0 mmol/L be repeated. 8 Because ethnic data is not always readily [...] (or dialysis) Procedures Date Code Description Status 12/25/2012 [id number] Colonoscopy Completed Medical Devices Description No Information Available Encounters Type Date Location Provider Dx Diagnosis Office Visit 01/11/2019 Main Office Kurtis Iyer Z00.00 Encntr for general 9:00a adult medical exam w/o abnormal findings Z11.1 Encounter for screening for respiratory tuberculosis Office Visit 11/16/2018 11:30a Main Office Kurtis Iyer MD R42 Dizziness and giddiness M79.606 Pain in leg, unspecified G47.00 Insomnia, unspecified Assessments Date Code Description Provider 04/07/2019 M13.841 Other specified arthritis, right hand Kurtis Iyer MD 04/07/2019 M54.5 Low back pain Kurtis Iyer MD 01/11/2019 Z00.00 Encounter for general adult medical Kurtis Iyer MD examination without abno 01/11/2019 Z11.1 Encounter for screening for respiratory Kurtis Iyer MD tuberculosis 11/16/2018 R42 Dizziness and giddiness Kurtis Iyer MD 11/16/2018 M79.606 Pain in leg, unspecified Kurtis Iyer MD 11/16/2018 G47.00 Insomnia, unspecified Kurtis Iyer MD Plan of Treatment 04/07/2019 - Kurtis Iyer MDM13.841 Other specified arthritis, right handComments:He has had uncountable fractures of the R hand. Habitually wears a brace. Having a lot of pain and dysfunction, lately much worse.Follow up:Refer to hand surgery. Extensive history of injuries, arthritis, and carpal tunnel.M54.5 Low back painComments:His symptoms are mostly resolved. There no longer seems to be a likely role for surgical treatment, so we will hold off on the MRI for now. Functional Status Description No Information Available Mental Status Description No Information Available Referrals Description No Information Available
--- NOTE | 2019-05-27 04:24 | ED ---
Abdominal Pain/Male - HPI Summary HPI Summary: 58 year old M presenting to [facility] with a chief complaint of severe left lower quadrant pain since 01:00 this morning. The patient rates the pain 9/10 in severity. Patient reports lightheadedness. Symptoms aggravated by nothing. Symptoms alleviated by nothing. Patient denies any vomiting, diarrhea, constipation, new dysuria, hematuria, or testicular pain. Medication list reviewed. Allergy list reviewed. Home Medications Medication Instructions Recorded Confirmed Type Baclofen TAB* [Lioresal TAB*] 10 mg PO BID 01/30/12 01/01/19 History PARoxetine HCL TAB* [Paxil TAB*] 20 mg PO DAILY 01/30/12 01/01/19 History Aspirin 81 mg CHEW TAB* 81 mg PO DAILY 05/11/12 01/01/19 History Metoprolol Tartrate TAB* 12.5 mg PO BID 05/11/12 01/01/19 History [Lopressor TAB*] Omeprazole CAP (NF) [Prilosec CAP* 40 mg PO DAILY 05/31/13 01/01/19 History 20 MG] Nitroglycerin TAB 0.4 MG* 0.4 mg SL Q5M PRN 07/05/13 01/01/19 History Meclizine TAB* [Antivert 12.5 TAB*] 25 mg PO DAILY PRN 12/17/16 01/01/19 History Atorvastatin* [Lipitor 40 MG*] 40 mg PO BEDTIME 12/22/17 01/01/19 History cloNIDine TAB* [Catapres 0.1 MG 0.1 mg PO QAM 12/22/17 01/01/19 History TAB*] Amlodipine Besylate [Amlodipine 5 mg PO DAILY #0 04/16/18 01/01/19 History 2.5 mg tab] Amoxicillin/Clavulanate TAB* 875 mg PO BID #20 tab 01/01/19 Rx [Augmentin TAB 875*] cloNIDine TAB* [Catapres 0.1 MG 0.2 mg PO BEDTIME 01/01/19 01/01/19 History TAB*] - History of Current Complaint Chief Complaint: EDAbdPain Stated Complaint: ABD PAIN PER PT Time Seen by Provider: 05/27/19 04:15 Hx Obtained From: Patient Onset/Duration: Lasting Hours, Still Present Timing: Constant Severity Initially: Severe Severity Currently: Severe Pain Intensity: 9 Pain Scale Used: 0-10 Numeric Location: Discrete At: LLQ Aggravating Factor(s): Nothing Alleviating Factor(s): Nothing Associated Signs And Symptoms: Positive: Negative - Testicular pain. Negative: Constipation, Urinary Symptoms, Vomiting, Diarrhea - Allergies/Home Medications Allergies/Adverse Reactions: Allergies Allergy/AdvReac Type Severity Reaction Status Date / Time orange juice Allergy Severe Anaphylatic Verified 05/27/19 04:07 Shock aspirin Allergy Intermediate GI Upset Verified 05/27/19 04:07 ibuprofen Allergy Intermediate GI Upset Verified 05/27/19 04:07 latex Allergy Intermediate Rash Verified 05/27/19 04:07 ciprofloxacin [From Cipro] Allergy Unknown Verified 05/27/19 04:07 Reaction Details codeine Allergy Unknown Verified 05/27/19 04:07 Reaction Details metronidazole [From Flagyl] Allergy Unknown Verified 05/27/19 04:07 Reaction Details apple juice Allergy Severe Anaphylatic Uncoded 05/27/19 04:07 Shock raw fruits Allergy Severe Anaphylatic Uncoded 05/27/19 04:07 Shock narcotics AdvReac 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, prefers not to take Home Medications: Home Medications Baclofen TAB* [Lioresal TAB*] 10 mg PO BID 01/30/12 [History Confirmed 05/27/19] PARoxetine HCL TAB* [Paxil TAB*] 20 mg PO DAILY 01/30/12 [History Confirmed 04/15] Aspirin 81 mg CHEW TAB* 81 mg PO DAILY 05/11/12 [History Confirmed 05/27/19] Metoprolol Tartrate TAB* [Lopressor TAB*] 12.5 mg PO BID 05/11/12 [History Confirmed 05/27/19] Omeprazole CAP (NF) [Prilosec CAP* 20 MG] 40 mg PO DAILY 05/31/13 [History Confirmed 05/27/19] Nitroglycerin TAB 0.4 MG* 0.4 mg SL Q5M PRN 07/05/13 [History Confirmed 05/27/19 ] Meclizine TAB* [Antivert 12.5 TAB*] 50 mg PO DAILY PRN 12/17/16 [History Confirmed 05/27/19] Atorvastatin* [Lipitor 40 MG*] 40 mg PO BEDTIME 12/22/17 [History Confirmed 04/15] cloNIDine TAB* [Catapres 0.1 MG TAB*] 0.1 mg PO BID 12/22/17 [History Confirmed 05/27/19] cloNIDine TAB* [Catapres 0.1 MG TAB*] 0.2 mg PO BEDTIME 01/01/19 [History Confirmed 05/27/19] Amoxicillin/Clavulanate TAB* [Augmentin TAB 875*] 875 mg PO TID 10 Days #30 tab 05/27/19 [Rx] Mirtazapine TAB* 7.5 mg PO BEDTIME 05/27/19 [History Confirmed 05/27/19] PMH/Surg Hx/FS Hx/Imm Hx Endocrine/Hematology History: Reports: Hx Anticoagulant Therapy - ASA, Other Endocrine/Hematological Disorders - Hypoglycemia Denies: Hx Blood Disorders, Hx Bone Marrow Disease, Hx Diabetes, Hx Systemic Lupus Erythematosus, Hx Sickle Cell Disease, Hx Thyroid Disease, Hx Anemia, Hx Unexplained Bleeding Cardiovascular History: Reports: Hx Angina, Hx Coronary Artery Disease - stents placed - 2011, Hx Hypercholesterolemia, Hx Hypertension - CONTROLLED WITH MEDICATION, Hx Myocardial Infarction, Other Cardiovascular Problems/Disorders - FOLLOWED BY DR MANDEL, CORONARY ARTERY DISEASE Denies: Hx Aneurysm, Hx Angioplasty, Hx Auto Implanted Cardiovert Defib, Hx Cardiac Arrest, Hx Cardiomegaly, Hx Congenital Heart Disease, Hx Congestive Heart Failure, Hx Deep Vein Thrombosis, Hx Hypotension, Hx Pacemaker/ICD, Hx Peripheral Vascular Disease, Hx Rheumatic Fever, Hx Syncope, Hx Valvular Heart Disease Respiratory History: Reports: Hx Chronic Bronchitis, Hx Chronic Obstructive Pulmonary Disease (COPD), Other Respiratory Problems/Disorders - current smoker Denies: Hx Asthma, Hx Cystic Fibrosis, Hx Lung Cancer, Hx Pleural Effusion, Hx Pneumonia, Hx Pulmonary Edema, Hx Pulmonary Embolism, Hx Seasonal Allergies, Hx Sleep Apnea GI History: Reports: Hx Gastroesophageal Reflux Disease - ON DAILY OMEPRAZOLE, Hx Gastrointestinal Bleed, Other GI Disorders - Hx OF ULCERATIVE COLITIS Denies: Hx Cirrhosis, Hx Crohn's Disease, Hx Diverticulosis, Hx Gall Bladder Disease, Hx Hiatal Hernia, Hx Irritable Bowel, Hx Jaundice, Hx Obstructive Bowel , Hx Ileostomy, Hx Pyloric Stenosis, Hx Ulcer History: Denies: Hx Renal Disease Musculoskeletal History: Reports: Hx Arthritis - RIGHT HAND, Hx Orthopedic Injury - R hand, L foot, Hx Tendonitis - BOTH ARMS, Other Musculoskeletal History - L foot drop toe surgery; carpal tunnel relase R hand Sensory History: Reports: Hx Contacts or Glasses, Hx Vision Problem Denies: Hx Hearing Aid Opthamlomology History: Reports: Hx Contacts or Glasses, Hx Vision Problem Neurological History: Reports: Other Neuro Impairments/Disorders - TOURETTE'S SYNDROME, ON DAILY MEDS Denies: Hx Seizures Psychiatric History: Reports: Other Psychiatric Issues/Disorders - Tourette's Denies: Hx Substance Abuse - Surgical History Surgery Procedure, Year, and Place: 1998 LEFT FOOT [facility]. 2012 CARDIAC CATH [facility] Hx Anesthesia Reactions: No - Immunization History Date of Tetanus Vaccine: Unknown Date of Influenza Vaccine: None, doesn't get the flu vaccine Infectious Disease History: No Infectious Disease History: Denies: Hx Clostridium Difficile, Hx Hepatitis, Hx Human Immunodeficiency Virus (HIV), Hx of Known/Suspected MRSA, Hx Shingles, Hx Tuberculosis, History Other Infectious Disease, Traveled Outside the in Last 30 Days - Family History Known Family History: Positive: Cardiac Disease - paternal, Other - [place] - maternal - Social History Alcohol Use: Rare Alcohol Amount: former alcoholic Hx Substance Use: Yes - not currently Substance Use Comment - Amount & Last Used: Former drug user Hx Tobacco Use: Yes Smoking Status (MU): Heavy Every Day Tobacco Smoker Type: Cigarettes Amount Used/How Often: CURRENT 1/2PPD; PAST 3PPD; HAS SMOKED 42 YRS Length of Time of Smoking/Using Tobacco: 42 YEARS Have You Smoked in the Last Year: Yes Review of Systems Gastrointestinal: Negative - Constipation Positive: Abdominal Pain. Negative: Vomiting, Diarrhea Genitourinary: Negative - Testicular pain Negative: dysuria, hematuria Neurological/Mental Status: Other - Lightheadedness All Other Systems Reviewed And Are Negative: Yes Physical Exam - Summary Physical Exam Summary: Constitutional: Well-developed, Well-nourished, Alert. (-) Distressed Skin: Warm, Dry HENT: Normocephalic; Atraumatic Eyes: Conjunctiva normal Neck: Musculoskeletal ROM normal neck. (-) JVD, (-) Stridor, (-) Tracheal deviation Cardio: Rhythm regular, rate normal, Heart sounds normal; Intact distal pulses; Radial pulses are 2+ and symmetric. (-) Murmur Pulmonary/Chest wall: Effort normal. (-) Respiratory distress, (-) Wheezes, (-) Rales Abd: Soft, tenderness to the left lower quadrant, (-) Distension, (-) Guarding, (-) Rebound Musculoskeletal: (-) Edema Lymph: (-) Cervical adenopathy Neuro: Alert, Oriented x3 Psych: Mood and affect Normal Triage Information Reviewed: Yes Vital Signs On Initial Exam: Initial Vitals Temp Pulse Resp BP Pulse Ox 98.4 F 70 16 168/109 100 05/27/19 04:04 05/27/19 04:04 05/27/19 04:04 05/27/19 04:04 05/27/19 04:04 Vital Signs Reviewed: Yes Procedures - Sedation Patient Received Moderate/Deep Sedation with Procedure: No Diagnostics - Vital Signs Vital Signs Temp Pulse Resp BP Pulse Ox 05/27/19 04:04 98.4 F 70 16 168/109 100 - Laboratory Result Diagrams: 05/27/19 04:38 05/27/19 04:38 Lab Statement: Any lab studies that have been ordered have been reviewed, and results considered in the medical decision making process. - CT Abdomen/Pelvis CT CT Interpretation Completed By: Radiologist Summary of CT Findings: 1. Colonic diverticulosis with mild short segment diverticulitis centered. around a specific culprit diverticulum which projects posteriorly in the mid. descending colon. 2. Mild bilateral lower lobe dependent atelectasis. 3. Fatty infiltration of the liver. 4. Areas of right hepatic hyperenhancement which are nonspecific. ED physician has reviewed this report. Abdominal Pain Male Course/Dx - Course Course Of Treatment: Patient is here with left lower quadrant pain. Patient has a history of diverticulitis. Patient had blood work performed which was grossly unremarkable. Patient had a CT scan which showed uncomplicated diverticulitis. Patient was started on Augmentin. - Diagnoses Provider Diagnoses: Diverticulitis, Left lower quadrant abdominal pain Discharge ED - Sign-Out/Discharge Documenting (check all that apply): Patient Departure - Discharge Plan Condition: Stable Disposition: HOME Prescriptions: Amoxicillin/Clavulanate TAB* [Augmentin TAB 875*] 875 mg PO TID 10 Days #30 tab Patient Education Materials: Diverticulitis (ED), Abdominal Pain (ED) Forms: *Work Release Referrals: Kurtis Iyer MD [Primary Care Provider] - 3 Days Additional Instructions: Follow-up with your PCP in 1-3 days. Take your medications as prescribed. Take Tylenol for pain. Return to the emergency department for any fever, chills, worsening abdominal pain, or any other concerning symptoms. - Billing Disposition and Condition Condition: STABLE Disposition: Home - Attestation Statements Document Initiated by Janice: Yes Documenting Scribe: Kelly Hart Provider For Whom Janice is Documenting (Include Credential): Prem Greene MD Scribe Attestation: Kelly Garcia, scribed for Prem Greene MD on 05/27/19 at 0651. Scribe Documentation Reviewed: Yes Provider Attestation: The documentation as recorded by the Kelly dobson accurately reflects the service I personally performed and the decisions made by me, Prem Greene MD Status of Scribe Document: Viewed
[2019-05-27 04:47] LABS: ABS Basophils 0.1 10^3/ul (0-0.2); ABS Eosinophils 0.2 10^3/ul (0-0.6); ABS Lymphocytes 1.7 10^3/ul (1.0-4.8); ABS Monocytes 0.5 10^3/ul (0-0.8); ABS Neutrophils 7.7 10^3/ul (1.5-7.7); Eosinophil % 1.6 %; Hematocrit 39 % (42-52); Hemoglobin 13.1 g/dL (14.0-18.0); Lymphocyte % 16.5 %; Mean Corpuscular HGB Conc 34 g/dL (31-36); Mean Corpuscular Hemoglobin 30 pg (27-31); Mean Corpuscular Volume 89 fL (80-94); Nucleated Red Blood Cells % 0.1; Platelet Count 276 10^3/uL (150-450); Red Blood Count 4.31 10^6 /uL (4.18-5.48); Red Cell Distribution Width 14 % (10-15); White Blood Count 10.1 10^3/uL (3.5-10.8)
[2019-05-27 04:51] LABS: Urine Appearance Clear; Urine Bilirubin Negative (Negative); Urine Blood Negative (Negative); Urine Color Yellow; Urine Glucose Negative (Negative); Urine Ketones Negative (Negative); Urine Nitrite Negative (Negative); Urine Protein Negative (Negative); Urine Urobilinogen Negative (Negative)
[2019-05-27 05:06] LABS: Albumin 3.8 g/dL (3.2-5.2); Albumin/Globulin Ratio 1.2 (1-3); BUN/Creatinine Ratio 26.3 (8-20); C Reactive Protein 10.58 mg/L (<8.01); Calcium 9.1 mg/dL (8.6-10.3); Globulin 3.1 g/dL (2-4); Potassium 4.2 mmol/L (3.5-5.0); Total Bilirubin 0.3 mg/dL (0.2-1.0); Total Protein 6.9 g/dL (6.4-8.9)
[2019-05-27] MEDS ORDERED: Iohexol 300* (CONTRAST) 10 ML SDV IV ONE (05:10)
[2019-05-27] MEDS ORDERED: Ketorolac INJ* 30 MG/ML 1 ML VIAL IV ONE (05:15)
[2019-05-27] MEDS ORDERED: Amoxicillin/Clavulanate TAB* 875 MG PO ONE (06:13)
[2019-05-27 06:43] VITALS: BP 153/84
== END 2019-05-27 06:30 | disposition home or self-care (01) ==
LOC: ED 04:03
DX: K57.92 Diverticulitis of intestine, part unspecified, without perforation or abscess without bleeding (principal); R10.32 Left lower quadrant pain; R31.9 Hematuria, unspecified; K21.9 Gastro-esophageal reflux disease without esophagitis; I25.10 Atherosclerotic heart disease of native coronary artery without angina pectoris; Z95.5 Presence of coronary angioplasty implant and graft; E78.00 Pure hypercholesterolemia, unspecified; I10 Essential (primary) hypertension; J44.9 Chronic obstructive pulmonary disease, unspecified; F17.210 Nicotine dependence, cigarettes, uncomplicated; Z79.01 Long term (current) use of anticoagulants; Z88.6 Allergy status to analgesic agent; Z88.8 Allergy status to other drugs, medicaments and biological substances; I25.2 Old myocardial infarction; Z79.82 Long term (current) use of aspirin
CPT/HCPCS: 36415; 74177; 80053; 81003; 83690; 85025; 86140; 96374; 99284; A9270-GY; J1885; Q9967

== ENCOUNTER 2021-02-04 18:26 | Observation (INO) ==
[2021-02-04 19:04] LABS: ABS Basophils 0.1 10^3/ul (0-0.2); ABS Eosinophils 0.2 10^3/ul (0-0.6); ABS Monocytes 1.1 10^3/ul (0-0.8); ABS Neutrophils 8.4 10^3/ul (1.5-7.7); Hematocrit 38 % (42-52); Hemoglobin 13.2 g/dL (14.0-18.0); Lymphocyte % 16.8 %; Mean Corpuscular HGB Conc 35 g/dL (31-36); Mean Corpuscular Hemoglobin 31 pg (27-31); Mean Corpuscular Volume 89 fL (80-94); Platelet Count 418 10^3/uL (150-450); Red Blood Count 4.31 10^6 /uL (4.18-5.48); Red Cell Distribution Width 13 % (10-15); White Blood Count 11.7 10^3/uL (3.5-10.8)
[2021-02-04 19:25] LABS: Anion Gap 6 mmol/L (2-11); Blood Urea Nitrogen 16 mg/dL (6-24); CO2 Carbon Dioxide 28 mmol/L (22-32); Chloride 104 mmol/L (101-111); Glucose 93 mg/dL (70-100); Potassium 4.1 mmol/L (3.5-5.0); Sodium 138 mmol/L (135-145)
[2021-02-04 19:26] LABS: ALT 14 U/L (7-52); AST 14 U/L (13-39); Albumin 3.9 g/dL (3.2-5.2); Albumin/Globulin Ratio 1.1 (1-3); Alkaline Phosphatase 66 U/L (35-149); Calcium 9.5 mg/dL (8.6-10.3); Globulin 3.4 g/dL (2-4); Total Protein 7.3 g/dL (6.4-8.9); eGFR CKD-EPI 98.9 (>60)
[2021-02-04 19:34] LABS: INR 1.11 (0.86-1.15)
[2021-02-04 19:45] LABS: Troponin I 0.05 ng/mL (<0.03)
[2021-02-04 21:31] LABS: Rapid COVID-19 Molecular Detected (Undetected)
[2021-02-05 06:01] LABS: ABS Basophils 0.1 10^3/ul (0-0.2); ABS Eosinophils 0.2 10^3/ul (0-0.6); ABS Lymphocytes 2.3 10^3/ul (1.0-4.8); ABS Monocytes 0.9 10^3/ul (0-0.8); ABS Neutrophils 4.9 10^3/ul (1.5-7.7); Eosinophil % 2.6 %; Hematocrit 39 % (42-52); Hemoglobin 12.9 g/dL (14.0-18.0); Lymphocyte % 27.3 %; Mean Corpuscular HGB Conc 33 g/dL (31-36); Mean Corpuscular Hemoglobin 31 pg (27-31); Mean Corpuscular Volume 94 fL (80-94); Mean Platelet Volume 7.3 fL (7.4-10.4); Nucleated Red Blood Cells % 0.1; Platelet Count 365 10^3/uL (150-450); Red Blood Count 4.18 10^6 /uL (4.18-5.48); Red Cell Distribution Width 14 % (10-15); White Blood Count 8.5 10^3/uL (3.5-10.8)
[2021-02-05 06:28] LABS: Calcium 8.8 mg/dL (8.6-10.3); Magnesium 2.3 mg/dL (1.9-2.7); Potassium 3.9 mmol/L (3.5-5.0); eGFR CKD-EPI 102.7 (>60)
[2021-02-05 19:26] VITALS: BP 131/71
== END 2021-02-05 19:35 | disposition home or self-care (01) ==
LOC: EDHOLD 18:26 → ED 18:26 → MED 02-05 08:49
PROVIDERS: ADMIT Internal Medicine; ATTEND Internal Medicine

== ENCOUNTER 2021-06-14 00:12 | Inpatient (IN) ==
[2021-06-14 00:40] LABS: ABS Basophils 0.1 10^3/ul (0-0.2); ABS Eosinophils 0.6 10^3/ul (0-0.6); ABS Lymphocytes 2.4 10^3/ul (1.0-4.8); ABS Monocytes 0.9 10^3/ul (0-0.8); ABS Neutrophils 6.9 10^3/ul (1.5-7.7); Eosinophil % 5.1 %; Hematocrit 37 % (42-52); Hemoglobin 12.9 g/dL (14.0-18.0); Lymphocyte % 22.3 %; Mean Corpuscular HGB Conc 35 g/dL (31-36); Mean Corpuscular Hemoglobin 32 pg (27-31); Mean Corpuscular Volume 91 fL (80-94); Mean Platelet Volume 7.3 fL (7.4-10.4); Nucleated Red Blood Cells % 0.1; Platelet Count 322 10^3/uL (150-450); Red Blood Count 4.08 10^6 /uL (4.18-5.48); Red Cell Distribution Width 14 % (10-15); White Blood Count 10.9 10^3/uL (3.5-10.8)
[2021-06-14 00:43] LABS: INR 1.06 (0.86-1.15)
[2021-06-14 01:07] LABS: Albumin 3.7 g/dL (3.2-5.2); Albumin/Globulin Ratio 1.4 (1-3); Calcium 9.1 mg/dL (8.6-10.3); Globulin 2.7 g/dL (2-4); Potassium 4.2 mmol/L (3.5-5.0); Total Bilirubin 0.2 mg/dL (0.2-1.0); Total Protein 6.4 g/dL (6.4-8.9); eGFR CKD-EPI 98.5 (>60)
[2021-06-14] MEDS ORDERED: Heparin DRIP 25,000 UNITS BAG 25,000 UNITS/500 ML BAG IV SCH (02:00)
[2021-06-14 02:30] LABS: High Sensitivity Troponin 1 Hr 301 pg/mL (<20)
[2021-06-14] MEDS ORDERED: Heparin 5000 UNITS/ML 1 mL VIAL ONE (02:37)
[2021-06-14 02:46] LABS: eGFR CKD-EPI 99.6 (>60)
[2021-06-14 06:04] LABS: ABS Basophils 0.2 10^3/ul (0-0.2); ABS Eosinophils 0.4 10^3/ul (0-0.6); ABS Lymphocytes 3.1 10^3/ul (1.0-4.8); ABS Neutrophils 6.9 10^3/ul (1.5-7.7); Eosinophil % 3.8 %; Hematocrit 38 % (42-52); Lymphocyte % 26.7 %; Mean Corpuscular HGB Conc 34 g/dL (31-36); Mean Corpuscular Hemoglobin 31 pg (27-31); Mean Corpuscular Volume 92 fL (80-94); Mean Platelet Volume 7.2 fL (7.4-10.4); Nucleated Red Blood Cells % 0.1; Platelet Count 332 10^3/uL (150-450); Red Blood Count 4.19 10^6 /uL (4.18-5.48); Red Cell Distribution Width 14 % (10-15); White Blood Count 11.5 10^3/uL (3.5-10.8)
[2021-06-14] MEDS ORDERED: Nitroglycerin 0.3 mg TAB SL PRN (06:11)
[2021-06-14 07:15] LABS: Albumin 3.7 g/dL (3.2-5.2); Calcium 9.2 mg/dL (8.6-10.3); Potassium 4.4 mmol/L (3.5-5.0); Total Bilirubin 0.3 mg/dL (0.2-1.0)
[2021-06-14 08:05] LABS: Albumin/Globulin Ratio 1.3 (1-3); Globulin 2.9 g/dL (2-4); HDL Cholesterol 33.1 mg/dL; Total Protein 6.6 g/dL (6.4-8.9); eGFR CKD-EPI 99.6 (>60)
[2021-06-14 09:34] LABS: C Reactive Protein 1.74 mg/L (<8.01)
[2021-06-14] MEDS: Aspirin EC 81 mg TAB.EC (enteric coated) PO SCH (10:05)
[2021-06-14] MEDS ORDERED: niCARdipine 0.1MG/ML IVPREMIX 20 MG/200 ML BAG IV ONE (12:15)
[2021-06-14] MEDS ORDERED: Lidocaine 1% MPF 5 ML VIAL ONE (12:15)
[2021-06-14] MEDS ORDERED: nitroGLYCERIN DRIP 25,000 MCG/250 ML BTL ONE (12:15)
[2021-06-14] MEDS ORDERED: fentaNYL 100 mcg/2 ml 50 MCG/ML VIAL ONE ×2 (12:15→13:48)
[2021-06-14] MEDS ORDERED: Heparin 2 UNITS/ML 1000 mls 2,000 ML IV ONE (12:15)
[2021-06-14] MEDS ORDERED: Midazolam 5 mg/5 ml VIAL 1 mg/ml 5 ml VIAL (5 mg) ONE (12:15)
[2021-06-14] MEDS ORDERED: Heparin 1,000 UNIT/ML 10 ml (10,000 UNITS) CATHLAB/DIALYSIS ONE ×2 (12:15→13:10)
[2021-06-14] MEDS ORDERED: Iohexol 350 (CONTRAST) 200 ML MDV IV ONE ×2 (12:15→12:39)
[2021-06-14] MEDS ORDERED: Prasugrel 10 mg TAB (NF) ONE (13:06)
[2021-06-14] MEDS ORDERED: Heparin 2 UNITS/ML 1000 mls 1,000 ML IV ONE (13:10)
[2021-06-14] MEDS ORDERED: Morphine 2 MG/ML SYRINGE IV PRN (16:49)
[2021-06-14] MEDS ORDERED: Morphine 2 MG/ML SYRINGE ONE (16:51)
[2021-06-15 04:50] LABS: ABS Basophils 0.1 10^3/ul (0-0.2); ABS Eosinophils 0.5 10^3/ul (0-0.6); ABS Lymphocytes 2.6 10^3/ul (1.0-4.8); ABS Monocytes 0.9 10^3/ul (0-0.8); ABS Neutrophils 7.9 10^3/ul (1.5-7.7); Eosinophil % 3.8 %; Hematocrit 38 % (42-52); Hemoglobin 13.2 g/dL (14.0-18.0); Lymphocyte % 22.1 %; Mean Corpuscular HGB Conc 35 g/dL (31-36); Mean Corpuscular Hemoglobin 31 pg (27-31); Mean Corpuscular Volume 90 fL (80-94); Mean Platelet Volume 7.4 fL (7.4-10.4); Platelet Count 319 10^3/uL (150-450); Red Blood Count 4.24 10^6 /uL (4.18-5.48); Red Cell Distribution Width 14 % (10-15); White Blood Count 11.9 10^3/uL (3.5-10.8)
[2021-06-15 05:38] LABS: Calcium 9.3 mg/dL (8.6-10.3); Potassium 4.3 mmol/L (3.5-5.0); eGFR CKD-EPI 98.2 (>60)
[2021-06-15] MEDS: Aspirin EC 81 mg TAB.EC (enteric coated) PO SCH (08:08)
[2021-06-15] MEDS ORDERED: CMCS:Prasugrel 10 mg TAB (NF) PO SCH (09:00)
[2021-06-15 15:30] VITALS: BP 117/73
== END 2021-06-15 15:42 | disposition home or self-care (01) | DRG 174 ==
LOC: ED 00:12 → EDHOLD 03:03 → SUATTDRO 03:03 → EDHOLD 11:18 → MEDTELE 11:35 → ICU 14:47
PROVIDERS: ADMIT Internal Medicine; ATTEND Internal Medicine